=== PATIENT | male | born 1950 | race Caucasian/White ===

== ENCOUNTER → 2019-08-02 08:47 | Outpatient (BNVA) | payer MEDICARE, OTHER, SELFPAY | PROVIDERS: Family Provider Nurse Practitioner Family; PCP Nurse Practitioner Family; Visit Provider Specialist | DX: G40.019 Localization-related (focal) (partial) idiopathic epilepsy and epileptic syndromes with seizures of localized onset, intractable, without status epilepticus (principal); Z98.890 Other specified postprocedural states; H40.20X0 Unspecified primary angle-closure glaucoma, stage unspecified; Z86.69 Personal history of other diseases of the nervous system and sense organs; F17.210 Nicotine dependence, cigarettes, uncomplicated | CPT/HCPCS: 80164; 99213 ==

== ENCOUNTER 2019-08-02 10:24 | Outpatient (CLI) | payer MEDICARE, OTHER, SELFPAY | END 2019-08-02 10:25 | disposition home or self-care (01) | LOC: LAB 10:24 | PROVIDERS: Family Provider Nurse Practitioner Family; PCP Nurse Practitioner Family; Visit Provider Specialist | DX: G40.019 Localization-related (focal) (partial) idiopathic epilepsy and epileptic syndromes with seizures of localized onset, intractable, without status epilepticus (principal) | CPT/HCPCS: 80164 ==

== ENCOUNTER → 2020-01-22 08:39 | Outpatient (BNVA) | payer MEDICARE, OTHER, SELFPAY | PROVIDERS: Family Provider Nurse Practitioner Family; PCP Nurse Practitioner Family; Visit Provider Specialist | DX: G40.802 Other epilepsy, not intractable, without status epilepticus (principal); G25.81 Restless legs syndrome; G40.909 Epilepsy, unspecified, not intractable, without status epilepticus | CPT/HCPCS: 80164; 80175; 99214 ==

== ENCOUNTER 2020-01-22 09:37 | Outpatient (CLI) | payer MEDICARE, OTHER, SELFPAY ==
[2020-01-22 11:05] LABS: Valproic Acid Level 82.2 ug/mL (50-100)
[2020-01-27 00:55] LABS: Lamotrigine (Lamictal) Level 6.2 mcg/mL (4.0-18.0)
== END 2020-01-22 09:38 | disposition home or self-care (01) ==
LOC: LAB 09:44
PROVIDERS: PCP Nurse Practitioner Family; Visit Provider Specialist
DX: G40.909 Epilepsy, unspecified, not intractable, without status epilepticus (principal)
CPT/HCPCS: 80164; 80175

== ENCOUNTER → 2020-07-10 09:39 | Outpatient (BNVA) | payer MEDICARE, OTHER, SELFPAY | PROVIDERS: PCP Nurse Practitioner Family; Visit Provider Specialist | DX: G40.802 Other epilepsy, not intractable, without status epilepticus (principal); G62.9 Polyneuropathy, unspecified; G25.81 Restless legs syndrome; D64.9 Anemia, unspecified; Z98.890 Other specified postprocedural states; F17.210 Nicotine dependence, cigarettes, uncomplicated | CPT/HCPCS: 36415; 80164; 82607; 82728; 83540; 83921; 85025; 99213 ==

== ENCOUNTER 2020-07-10 12:15 | Outpatient (CLI) | payer MEDICARE, OTHER, SELFPAY ==
[2020-07-10 13:17] LABS: Basophils # 0.1 10^3/uL (0.0-0.1); Basophils % 1.5 %; Eosinophils # 1.4 10^3/uL (0.0-0.8); Eosinophils % 27.3 %; Hematocrit 42.2 % (42.0-52.0); Hemoglobin 13.9 g/dL (11.7-16.6); Lymphocytes # 1.8 10^3/uL (0.8-4.8); Lymphocytes % 33.6 %; Mean Corpuscular HGB Conc 32.9 g/dL (30.0-36.0); Mean Corpuscular Hemoglobin 33.3 pg (28.0-34.0); Mean Corpuscular Volume 101.2 fL (80-94); Mean Platelet Volume 10.5 fL (7.4-10.4); Monocytes # 0.3 10^3/uL (0.2-0.9); Monocytes % 6.1 %; Neutrophils # 1.64 10^3/uL (1.8-7.7); Neutrophils % 31.3 %; Nucleated Red Blood Cells % 0 %; Platelet Count 162 10^3/cmm (130-400); Red Blood Count 4.17 10^6/uL (4.1-5.3); Red Cell Distribution Width 13.3 % (12.1-15.1); White Blood Count 5.2 10^3/uL (4.0-10.0)
[2020-07-10 13:30] LABS: Ferritin 571 ng/mL (30-400); Iron 85 ug/dL (59-158)
[2020-07-10 13:34] LABS: Valproic Acid Level 86.3 ug/mL (50-100)
[2020-07-10 13:46] LABS: Vitamin B12 1028 pg/mL (232-1245)
[2020-07-13 17:53] LABS: Methylmalonic Acid 85 nmol/L (87-318)
== END 2020-07-10 12:16 | disposition home or self-care (01) ==
PROVIDERS: PCP Nurse Practitioner Family; Visit Provider Specialist
DX: G62.9 Polyneuropathy, unspecified (principal); D64.9 Anemia, unspecified
CPT/HCPCS: 36415; 80164; 82607; 82728; 83540; 83921; 85025

== ENCOUNTER → 2021-01-08 09:10 | Outpatient (BNVA) | payer MEDICARE, OTHER, SELFPAY | PROVIDERS: PCP Nurse Practitioner Family; Visit Provider Specialist | DX: G40.802 Other epilepsy, not intractable, without status epilepticus (principal); G62.9 Polyneuropathy, unspecified; G25.81 Restless legs syndrome; G30.9 Alzheimer's disease, unspecified; F02.80 Dementia in other diseases classified elsewhere, unspecified severity, without behavioral disturbance, psychotic disturbance, mood disturbance, and anxiety; Z87.891 Personal history of nicotine dependence; Z96.82 Presence of neurostimulator | CPT/HCPCS: 96116; 99214 ==

== ENCOUNTER → 2021-05-01 08:47 | Outpatient (BNVA) | payer MEDICARE, OTHER, SELFPAY | PROVIDERS: PCP Nurse Practitioner Family; Visit Provider Specialist | DX: G30.9 Alzheimer's disease, unspecified (principal); F02.80 Dementia in other diseases classified elsewhere, unspecified severity, without behavioral disturbance, psychotic disturbance, mood disturbance, and anxiety; G25.81 Restless legs syndrome; G40.802 Other epilepsy, not intractable, without status epilepticus; Z86.69 Personal history of other diseases of the nervous system and sense organs; Z96.82 Presence of neurostimulator | CPT/HCPCS: 99213; 99214 ==

== ENCOUNTER 2021-07-03 11:46 | Outpatient (CLI) | payer MEDICARE, OTHER, SELFPAY ==
[2021-07-03 11:43] VITALS: BP 114/67; PULSE 54; RESP 20; TEMP 36.7; O2SAT 97; BMI 21.1
[2021-07-03 12:40] VITALS: BP 134/75; PULSE 56; RESP 22; TEMP 36.4; O2SAT 99
[2021-07-03 13:40] VITALS: BP 133/81; PULSE 58; RESP 20; TEMP 36.6; O2SAT 98
== END 2021-07-03 11:47 | disposition home or self-care (01) ==
LOC: OPS 11:52
PROVIDERS: PCP Nurse Practitioner Family; Visit Provider Nurse Practitioner Family
DX: U07.1 COVID-19 (principal)
CPT/HCPCS: 96365

== ENCOUNTER → 2022-01-12 08:51 | Outpatient (BNVA) | payer MEDICARE, OTHER, SELFPAY | PROVIDERS: PCP Nurse Practitioner Family; Visit Provider Specialist | DX: G40.802 Other epilepsy, not intractable, without status epilepticus (principal); G30.9 Alzheimer's disease, unspecified; F02.80 Dementia in other diseases classified elsewhere, unspecified severity, without behavioral disturbance, psychotic disturbance, mood disturbance, and anxiety; G25.81 Restless legs syndrome; G62.9 Polyneuropathy, unspecified | CPT/HCPCS: 99214 ==

== ENCOUNTER 2022-07-07 20:55 | Inpatient (IN) | payer MEDICARE, OTHER, SELFPAY ==
[2022-07-07 20:59] VITALS: BP 176/104; PULSE 86; RESP 18; TEMP 36.6; O2SAT 91
[2022-07-07 21:30] VITALS: BP 144/89; PULSE 70; RESP 17; O2SAT 93
--- NOTE | 2022-07-07 21:36 | ED_ITS ---
HPI - Seizure General: Chief Complaint: Seizure Stated Complaint: SEIZURE Time Seen by Provider: 07/07/22 20:59 Source: patient and EMS Mode of arrival: EMS Limitations: no limitations History of Present Illness: HPI Narrative: 71-year-old female who has a long history of seizures had seizures for over 25 years his caregiver states that he did miss his Depakote dose and had a seizure tonight patient is currently somnolent he did not hit his head she states that she catch him denies any chest or abdominal pain. Review of Systems General: Reports: ROS unobtainable due to mental status PFSH ED PFSH: Medical History (Updated 07/07/22 @ 23:01 by Paola Martinez MD) Chronic lower back pain Family History Other Diabetes Hypertension Stroke Denies family history of CAD (coronary artery disease) Social History Smoking and tobacco status: former smoker Alcohol intake: never History of recent travel: No Physical Exam Const: COMMON NORMALS: negative for patient oriented x3 HENMT: COMMON NORMALS: normocephalic and atraumatic HEAD & SCALP: normocephalic and atraumatic Eye: COMMON NORMALS: conjunctivae normal CONJUNCTIVA: Yes conjunctivae normal Neck/C-Spine: COMMON NORMALS: full ROM Chest: COMMONS NORMALS: normal inspection of the chest Resp: COMMON NORMALS: normal respiratory effort Cardio: COMMON NORMALS: regular rate RATE: regular rate GI: INSPECTION: Yes normal to inspection : COMMON NORMALS: Yes normal external exam Extremity: COMMON NORMALS: normal to inspection Neuro: COMMON NORMALS: negative for patient oriented x3 Psych: COMMON NORMALS: mental status grossly normal Skin: COMMON NORMALS: no rashes or lesions noted GENERAL SKIN EXAM: no rashes or lesions noted Course Vital Signs: Vital signs: Vital Signs Temperature 97.9 F 07/07/22 20:59 Pulse Rate 66 07/07/22 22:32 Respiratory Rate 14 07/07/22 22:32 Blood Pressure 168/89 07/07/22 22:32 Pulse Oximetry 92 07/07/22 22:32 Oxygen Delivery Me thod 07/07/22 20:59 MDM - Seizure MDM Narrative Medical decision making narrative: Patient presents here with a seizure he is also had a cough he appears to have a slight pneumonia on his right lower lobe and his x-ray he is not hypoxic here he felt improved would like to go home he has been well-appearing here we will start him on doxycycline his Depakote level is normal he is back to his baseline he is here with family member informed if his breathing worsens or has another seizure he is return they understand agree to plan he is to follow-up with PCP in 2 to 4 days to make sure his pneumonia clears up. Lab Data 07/07/22 21:13 Labs: Laboratory Results Sodium 140 mmol/L (136-145) 07/07/22 21:13 Potassium 3.9 mmol/L (3.5-5.1) 07/07/22 21:13 Chloride 104 mmol/L (98-107) 07/07/22 21:13 Carbon Dioxide 26 mmol/L (22-29) 07/07/22 21:13 Anion Gap 13.9 (5-19) 07/07/22 21:13 BUN 15 mg/dL (8-23) 07/07/22 21:13 Creatinine 0.9 mg/dL (0.7-1.2) 07/07/22 21:13 GFR Calculation 83.7 mL/min (90-130) L 07/07/22 21:13 Glucose 131 mg/dL (65-115) H 07/07/22 21:13 Calculated Osmolality 293 mOsm/kg (285-295) 07/07/22 21:13 Calcium 8.6 mg/dL (8.5-10.5) 07/07/22 21:13 Valproic Acid 63.5 ug/mL (50-100) 07/07/22 21:13 Discharge Plan Discharge Patient Disposition: Home Clinical Impression: Seizure, Pneumonia Condition: Stable Prescriptions: New doxycycline hyclate 100 mg tablet 100 mg PO BID 7 Days Qty: 14 0RF No Action doxycycline hyclate 100 mg capsule 100 mg PO BID vitamin b12 as directed garlic Tablet 300 mg PO DAILY divalproex [Depakote] 500 mg tablet,delayed release (DR/EC) 500 mg PO BID Qty: 180 1RF divalproex [Depakote] 500 mg tablet,delayed release (DR/EC) 500 mg PO BID Qty: 180 1RF divalproex 250 mg tablet,delayed release (DR/EC) See Rx Instructions .ROUTE .COMPLEX Qty: 180 1RF Dose Instruction: TAKE ONE TABLET BY MOUTH TWICE DAILY Rx Instructions: TAKE ONE TABLET BY MOUTH TWICE DAILY lamotrigine [Lamictal] 100 mg tablet 50 mg PO BID Qty: 180 3RF memantine 10 mg tablet 10 mg PO BID Qty: 180 3RF memantine 5-10 mg tablets,dose pack See Rx Instructions PO PER PKG DIR Qty: 49 0RF Rx Instructions: PO PER PKG DIR valproic acid 250 mg capsule 250 mg PO BID acetaminophen [Tylenol 8 Hour] 650 mg tablet extended release 650 mg PO Q12H PRN acetaminophen-codeine [Tylenol-Codeine #3] 300-30 mg tablet 1 tab PO Q6H PRN magnesium 250 mg tablet 250 mg PO QDAY tamsulosin 0.4 mg capsule 0.4 mg PO QDAY sod [id number]-luprwxp Tablet PO ONCE levothyroxine 50 mcg capsule 50 mcg PO QDAY cholecalciferol (vitamin D3) [Vitamin D3] 2,000 unit tablet 2,000 unit PO QDAY omega-3 fatty acids 1,000 mg capsule 1,000 mg PO QDAY potassium 99 mg tablet PO ONCE Allergy Relief (cetirizine) 10 mg capsule PO ONCE meclizine 25 mg tablet 25 mg PO QDAY PRN zinc 50 mg tablet 50 mg PO QDAY vitamin E (dl, acetate) 400 unit capsule 400 unit PO QDAY valerian root 100 mg capsule 100 mg PO ONCE glucosamine HCl 1,500 mg tablet 1,500 mg PO ONCE turmeric 400 mg capsule PO ONCE [id number] 600 mg calcium- 800 unit-50 mg tablet 1 tab PO DAILY Rx Instructions: give with meal/snack galantamine 24 mg capsule,ext rel. pellets 24 hr 24 mg PO QAM Qty: 30 2RF Rx Instructions: administer with breakfast galantamine 8 mg capsule,ext rel. pellets 24 hr 8 mg PO QAM Qty: 90 0RF Rx Instructions: administer with breakfast for 90 days, then increased to 16 mg galantamine 16 mg capsule,ext rel. pellets 24 hr 16 mg PO QAM Qty: 90 3RF Rx Instructions: Administer with breakfast. Start on completion of 8 mg for 3 months. ropinirole 1 mg tablet 1 mg PO BID Qty: 180 3RF Rx Instructions: Take two tablets at bedtime azithromycin 250 mg Capsule PO Mucinex Allergy 180 mg Tablet PRN (Reason: Secretions) ondansetron 4 mg Tablet,Disintegrating 4 mg PO Q8H PRN (Reason: Abdominal Discomfort) Discharge Orders: Discharge ED (Routine); Ordered 07/07/22 Ordered By: Paola Martinez Referrals: Melendez,Milagro, AUTOMOTIVE MACHINIST [Primary Care Provider] - 1-3 days Discharge Diet: Advance as tolerated Discharge Activity: Resume usual activity Patient Instructions: Pneumonia (ED), Seizures Coding Level of Care Code ED Rn Research for Chg Fwd Exam Comprehensive
[2022-07-07 21:41] LABS: Anion Gap 13.9 (5-19); Blood Urea Nitrogen 15 mg/dL (8-23); Calcium 8.6 mg/dL (8.5-10.5); Carbon Dioxide 26 mmol/L (22-29); Chloride 104 mmol/L (98-107); Glomerular Filtration Rate 83.7 mL/min (90-130); Glucose 131 mg/dL (65-115); Osmolality Calculated 293 mOsm/kg (285-295); Potassium 3.9 mmol/L (3.5-5.1); Sodium 140 mmol/L (136-145); Valproic Acid Level 63.5 ug/mL (50-100)
[2022-07-07 22:00] VITALS: BP 140/103; PULSE 66; RESP 14; O2SAT 90
[2022-07-07 22:32] VITALS: BP 168/89; PULSE 66; RESP 14; O2SAT 92
--- NOTE | 2022-07-07 22:37 | XRR_ITS ---
PROCEDURE INFORMATION: Exam: XR Chest Exam date and time: 07/07/2022 10:51 PM Age: 71 years old Clinical indication: Prior surgery; Surgery type: Spinal stimulator. Patient HX: Witnessed seizure. History of seizure disorder. Has cough. TECHNIQUE: Imaging protocol: Radiologic exam of the chest. Views: 1 view. COMPARISON: CR XR chest 1V [id number] 01/20/2019 7:56 PM FINDINGS: Tubes, catheters and devices: Spinal stimulator. Lungs: Patchy right mid to lower lung field infiltrate. Pleural spaces: Unremarkable. No pleural effusion. No pneumothorax. Heart/Mediastinum: Unremarkable. No cardiomegaly. Bones/joints: Unremarkable. XR/XR chest 1V portable [id number] IMPRESSION: Patchy right mid to lower lung field infiltrate.
--- NOTE | 2022-07-07 23:15 | PC.NURSE ---
Removed IV to DC pt, pt began seizing, pt turned on side and provider ntfd. Pt no longer seizing after about 30 seconds. New IV started and IV Ativan given
--- NOTE | 2022-07-07 23:28 | CTR_ITS ---
PROCEDURE INFORMATION: Exam: CT Head Without Contrast Exam date and time: 07/08/2022 12:18 AM Age: 71 years old Clinical indication: Condition or disease; Convulsions or seizures; Patient HX: Witnessed seizure. History of seizure disorder. TECHNIQUE: Imaging protocol: Computed tomography of the head without contrast. Radiation optimization: All CT scans at this facility use at least one of these dose optimization techniques: automated exposure control; mA and/or kV adjustment per patient size (includes targeted exams where dose is matched to clinical indication); or iterative reconstruction. COMPARISON: CT head wo con* [id number] 10/15/2018 9:59 PM RADIATION DOSE METRICS: Total DLP (mGy-cm): 1198.98 FINDINGS: Brain: Large amount of diffuse white matter disease likely reflecting chronic microvascular ischemic changes. Cerebral ventricles: No ventriculomegaly. Paranasal sinuses: Visualized sinuses are unremarkable. No fluid levels. Mastoid air cells: Visualized mastoid air cells are well aerated. Bones/joints: Unremarkable. No acute fracture. Soft tissues: Unremarkable. CT/CT head wo con* [id number] IMPRESSION: 1. Negative for intracranial hemorrhage or mass effect. 2. Large amount of diffuse white matter disease likely reflecting chronic microvascular ischemic changes.
[2022-07-07] MEDS: LORazepam 2 mg/mL INJ 1 mL 1 MG IVP (23:31)
[2022-07-07] MEDS: cefTRIAXone 1,000 MG in sodium chloride 0.9% (plus) 50 ML 100 MG IV (23:40)
[2022-07-07 23:44] VITALS: BP 153/90; PULSE 82; RESP 18; O2SAT 93
[2022-07-08] VITALS (7 sets, daily range): BP systolic 130–161; BP diastolic 69–92; PULSE 51–89; RESP 14–17; TEMP 36.4–38.4; O2SAT 90–97
[2022-07-08 00:17] LABS: SARS Covid-2 Antigen negative (Negative)
[2022-07-08 00:33] LABS: Basophils % 0.7 %; Eosinophils # 0.8 10^3/uL (0.0-0.8); Eosinophils % 14.2 %; Hematocrit 42.6 % (42.0-52.0); Hemoglobin 13.9 g/dL (11.7-16.6); Lymphocytes # 1.2 10^3/uL (0.8-4.8); Mean Corpuscular HGB Conc 32.6 g/dL (30.0-36.0); Mean Corpuscular Hemoglobin 32.3 pg (28.0-34.0); Mean Corpuscular Volume 98.8 fl (80-94); Mean Platelet Volume 10.5 fL (7.4-10.4); Monocytes # 0.4 10^3/uL (0.2-0.9); Monocytes % 6.7 %; Neutrophils # 3.32 10^3/uL (1.8-7.7); Neutrophils % 56.7 %; Nucleated Red Blood Cells % 0 %; Platelet Count 283 10^3/cmm (130-400); Red Blood Count 4.31 10^6/uL (4.1-5.3); Red Cell Distribution Width 13.1 % (12.1-15.1); White Blood Count 5.9 10^3/uL (4.0-10.0)
[2022-07-08] MEDS: azithromycin 500 MG in sodium chloride 0.9% 250 ML 250 MG IV (00:40)
[2022-07-08] MEDS: divalproex ER 250 mg Tablet (24H) 500 MG PO (00:41)
[2022-07-08 01:12] LABS: Influenza A by IFA negative (Negative); Influenza B by IFA negative (Negative)
[2022-07-08] MEDS: doxycycline 100 mg Tablet PO (02:00)
--- NOTE | 2022-07-08 02:15 | PC.NURSE ---
ADMIT NOTE Pt received to room from ER at 0155. with pt. She reports he has been sick since Paige Franci with sinus infection. Just was not getting any better. Has had fever to 101.4, c/o SOB and prod cough. Has been getting Albuterol nebs. says today she came home from work and he seemed a little confused and wasn't answering her right. Says sometimes this happens before a seizure. He then had a sz and was brought to the hospital. Had a second seizure in the ER. Lethargic on arrival to room. Did tell me his name but would not open his eyes or follow any commands. says he is sometimes postictal for up to 24 hours. Side rails are padded and suction at bedside. will be staying with pt. RN at bedside doing admission assessment. Dr Christianson also in talking with
[2022-07-08 04:02] LABS: Add Urine Microscopic? NO; Charge for UA Resulting for Rev
[2022-07-08 04:14] LABS: Urine Appearance Clear (CLEAR); Urine Color Yellow (Yellow)
[2022-07-08 04:15] LABS: Bilirubin Urine Neg (Negative); Blood Urine Neg (Negative); Glucose Urine UA Norm (Normal); Ketones Urine Negative (Negative); Nitrate Urine Negative (Negative); Protein Urine Neg (Negative); Specific Gravity, Urine 1.015 (1.005-1.030); pH Urine 8 (5-7)
[2022-07-08 04:16] LABS: Leukocyte Esterase Urine Negative (Negative); Sulfosalicylic Acid Urine Negative (Negative); Urobilinogen Urine Norm (Negative)
--- NOTE | 2022-07-08 04:45 | PM.HP ---
Providers/Chief Complaint Admitting Physician: Chiquita Christianson MD Primary Care Provider: Milagro Melendez APN Chief Complaint: SEIZURE History of Present Illness Ketan Sandra is a 71 year old male with past medical history of stroke, hypertension, diabetes, epilepsy, COPD, restless legs presented to the hospital today with complaint of seizure. He says his last seizure was in January last year. For seizure was 30 to 45 seconds long and then he had a second seizure which was 1 minute long in the ER here. She states that patient was lethargic today. Patient did miss his Depakote dose. Patient's states that he has been having seizures since he was 42 years old. He only gets breakthrough seizures when he gets sick otherwise has been stable on medications and follows with Dr. Vallecillo. Recently he has had a fever, cough bringing up green/yellow sputum. He is a former smoker and has a history of COPD however not on any inhalers that are scheduled. He usually has 1-2 seizures a year. He has also been incontinent of urine this past month and has to wear depends. He states normally his postictal phase lasts anywhere from 12 to 24 hours. That is normal for him. Patient unable to provide any history at this time as he is is postictal. In the ER chest x-ray did show a right lower lobe pneumonia and initially patient was being discharged home however he had another seizure. Depakote level was normal. Patient will be admitted for IV antibiotics at this time. Medications/Allergies Home Medications Medication Instructions Recorded Confirmed Last Taken Type acetaminophen 300 mg-codeine 30 mg 1 tab PO Q6H PRN 08/02/19 01/12/22 Unknown History tablet (Tylenol-Codeine #3) acetaminophen 650 mg 650 mg PO Q12H PRN 08/02/19 01/12/22 Unknown History tablet,extended release (Tylenol 8 Hour) cetirizine 10 mg capsule (Allergy PO ONCE 08/02/19 01/12/22 Unknown History Relief (cetirizine)) cholecalciferol (vitamin D3) 50 2,000 unit PO QDAY 08/02/19 01/12/22 Unknown History mcg (2,000 unit) tablet (Vitamin D3) glucosamine HCl 1,500 mg tablet 1,500 mg PO ONCE 08/02/19 01/12/22 Unknown History levothyroxine 50 mcg capsule 50 mcg PO QDAY 08/02/19 01/12/22 Unknown History magnesium 250 mg tablet 250 mg PO QDAY 08/02/19 01/12/22 Unknown History meclizine 25 mg tablet 25 mg PO QDAY PRN 08/02/19 01/12/22 Unknown History omega-3 fatty acids 1,000 mg 1,000 mg PO QDAY 08/02/19 01/12/22 Unknown History capsule potassium 99 mg tablet mg PO ONCE 08/02/19 01/12/22 Unknown History sodium uzksaucg-tkgosfoso-cywwrpv tab PO ONCE 08/02/19 01/12/22 Unknown History tablet tamsulosin 0.4 mg capsule 0.4 mg PO QDAY 08/02/19 01/12/22 Unknown History turmeric 400 mg capsule mg PO ONCE 08/02/19 01/12/22 Unknown History valerian root 100 mg capsule 100 mg PO ONCE 08/02/19 01/12/22 Unknown History valproic acid 250 mg capsule 250 mg PO BID 08/02/19 01/12/22 Unknown History vitamin E (dl, acetate) 180 mg 400 unit PO QDAY 08/02/19 01/12/22 Unknown History (400 unit) capsule zinc 50 mg tablet 50 mg PO QDAY 08/02/19 01/12/22 Unknown History calcium 600 mg-D3 800 unit-mag11 1 tab PO DAILY 01/22/20 01/12/22 Unknown History 50 ec-dpil-uqdrzu-yimi-s.borat tablet doxycycline hyclate 100 mg capsule 100 mg PO BID 07/10/20 01/12/22 Unknown History galantamine 24 mg 24 hr 24 mg PO QAM #30 caps 01/08/21 01/12/22 Unknown Rx capsule,extended release galantamine 16 mg 24 hr 16 mg PO QAM #90 caps 05/01/21 01/12/22 Unknown Rx capsule,extended release galantamine 8 mg 24 hr 8 mg PO QAM #90 caps 05/01/21 01/12/22 Unknown Rx capsule,extended release azithromycin 250 mg capsule mg PO 07/03/21 01/12/22 07/03/21 08:00 History fexofenadine 180 mg tablet mg PRN Secretions 07/03/21 01/12/22 07/03/21 08:00 History ondansetron 4 mg disintegrating 4 mg PO Q8H PRN Abdominal 07/03/21 01/12/22 07/03/21 08:00 History tablet Discomfort divalproex 250 mg tablet,delayed See Rx Instructions .Route 01/12/22 01/12/22 Unknown Rx release .COMPLEX #180 tabs divalproex 500 mg tablet,delayed 500 mg PO BID #180 tabs 01/12/22 01/12/22 Unknown Rx release (Depakote) divalproex 500 mg tablet,delayed 500 mg PO BID #180 tabs 01/12/22 01/12/22 Unknown Rx release (Depakote) garlic 300 mg PO DAILY 01/12/22 01/12/22 Unknown History lamotrigine 100 mg tablet 50 mg PO BID #180 tabs 01/12/22 01/12/22 Unknown Rx (Lamictal) memantine 10 mg tablet 10 mg PO BID #180 tabs 01/12/22 01/12/22 Unknown Rx memantine 5 mg-10 mg tablets in a See Rx Instructions PO PER PKG DIR 01/12/22 01/12/22 Unknown Rx dose pack #49 ea vitamin b12 as directed 01/12/22 Unknown History ropinirole 1 mg tablet 1 mg PO BID #180 tabs 02/18/22 Unknown Rx doxycycline hyclate 100 mg tablet 100 mg PO BID 7 days #14 tabs 07/07/22 Unknown Rx Allergies Allergy/AdvReac Type Severity Reaction Status Date / Time aloe vera AdvReac itching/aggie Verified 01/12/22 08:54 h metronidazole [From Flagyl] AdvReac seizure Verified 01/12/22 08:54 phenytoin [From Dilantin] AdvReac rash Verified 01/12/22 08:54 PFSH Acute PFSH: Medical History (Updated 07/07/22 @ 23:01 by Paola Martinez MD) Chronic lower back pain Family History Other Diabetes Hypertension Stroke Denies family history of CAD (coronary artery disease) Social History Smoking and tobacco status: former smoker Alcohol intake: never History of recent travel: No Vitals/I&O/Wt Last Vital Signs Temp 98.8 F 07/08/22 00:00 Pulse 87 07/08/22 00:00 Resp 16 07/08/22 00:00 BP 149/92 07/08/22 00:00 Pulse Ox 93 07/08/22 00:00 O2 Del Method 07/08/22 02:35 07/07/22 07/07/22 07/08/22 14:59 22:59 06:59 Intake Total 300 / 300 Balance 300 / 300 Physical Exam Narrative: General: Able to state his name but otherwise does not provide any history. Able to move all 4 extremities. Drowsy and postictal at this time. present at bedside. Patient laying in position. HEENT: Normocephalic, atraumatic, EOMI, breathing after being on room air. Cardio: Regular rate rhythm, normal S1-S2, Respiratory: Clear to auscultation bilaterally with mild rhonchi at right base. GI: Abdomen soft, nontender, nondistended, bowel sounds + Extremities: No bilateral lower extremity edema. Data 07/07/22 21:13 07/07/22 21:13 Micro: Microbiology 07/07/22 23:58 Blood Culture - Preliminary Blood SPECIMEN COLLECTED 07/07/22 23:30 Blood Culture - Preliminary Blood SPECIMEN COLLECTED A&P Assessment and plan (1) Seizure: (2) Pneumonia: (3) Alzheimer disease: (4) Restless legs syndrome: (5) Peripheral neuropathy: (6) Frontal lobe epilepsy: Plan #RLL Pneumonia #Seizures #COPD #HTN #Early dementia history -Continue on ceftriaxone azithromycin ? Check procalcitonin, blood cultures ? Check urine culture ? Vitamin B12 level ? CT head ? Continue IV fluids 75 cc/h normal saline ? Check sputum culture gram stain if able to provide ? DuoNeb every 4 hours as needed ? Continue all home seizure medications but converted to IV as patient is postictal at this time ? Follow-up with Dr. Vallecillo as an outpatient ? Check COVID, influenza swab. ? updated at bedside ? RN to confirm home medications. did not bring list. DNR/DNI as per . DVT prophylaxis: Heparin SQ twice daily Attestations Medical Necessity Statement*: Possibility of cross greater than 2 midnight stay for management of breakthrough seizures and current level of pneumonia requiring IV antibiotics. Coding Level of Care Code Acute Blow Down Operator for [facility] Fwd Diagnoses Seizure R56.9 Pneumonia J18.9 Alzheimer disease G30.9; F02.80 Restless legs syndrome G25.81 Peripheral neuropathy G62.9 Frontal lobe epilepsy G40.802
[2022-07-08] MEDS: sodium chloride 0.9% 1,000 ML 75 ML IV ×2 (05:07→18:21)
[2022-07-08] MEDS: heparin 5,000 unit/mL INJ 1 mL 5000 UNIT SUBCUT (05:10)
[2022-07-08] MEDS: pantoprazole 40 mg SDV IVP (05:32)
[2022-07-08 05:46] LABS: Lactic Sepsis W/Reflex 1.1 mmol/L (0.5-2.2)
[2022-07-08 05:53] LABS: Thyroid Stimulating Hormone 3.02 uIU/mL (0.27-4.20)
[2022-07-08 05:54] LABS: Procalcitonin 0.05 ng/mL (0-0.5)
[2022-07-08] MEDS: valproic acid inj 500 MG in sodium chloride 0.9% 50 ML 55 MG IV (10:41)
[2022-07-08] MEDS: piperacillin-tazobactam 3.375 GM in sodium chloride 0.9% (plus) 50 ML IV ×2 (11:56→18:21)
--- NOTE | 2022-07-08 15:09 | P.PN_ITS ---
Subjective Subjective: Patient was seen and examined this morning, he was able to answer few simple questions but still sleepy. No reported seizure so far. Medications: Medication Review Details: Generic Name Dose Route Start Last Admin Trade Name Luz PRN Reason Stop Dose Admin Heparin Sodium (Po rcine) 5,000 unit 07/08/22 04:45 07/08/22 05:10 Heparin 5,000 Un it/Ml Inj 1 Ml SUBCUT 5,000 unit Q12H DONNELL Administration Sodium Chloride 1,000 mls @ 75 ml s/hr 07/08/22 04:45 07/08/22 05:07 Sodium Chloride 0.9% IV 75 mls/hr .[id number] DONNELL Administration Piperacillin Sod/T azobactam 50 mls @ 12.5 mls /hr 07/08/22 08:30 07/08/22 11:56 Sod 3.375 gm/ So dium Chloride IV 12.5 mls/hr Q8H DONNELL Administration Protocol Pantoprazole Sodiu m 40 mg 07/08/22 04:45 07/08/22 05:32 Pantoprazole 40 Mg Sdv IVP 40 mg Q24H DONNELL Administration Vitals/I&O/Wt Last Vital Signs Temp 98.2 F 07/08/22 12:00 Pulse 59 L 07/08/22 12:00 Resp 16 07/08/22 12:00 BP 133/69 07/08/22 12:00 Pulse Ox 92 07/08/22 12:00 O2 Del Method 07/08/22 12:00 07/08/22 07/08/22 07/08/22 06:59 14:59 22:59 Intake Total 300 / 300 55 / 55 Balance 300 / 300 55 / 55 Physical Exam Narrative: Patient was seen and examined this morning he was drowsy, though he wakes up and answer simple questions HENMT: COMMON NORMALS: normocephalic and atraumatic HEAD & SCALP: normocephalic and atraumatic Resp: COMMON NORMALS: clear to auscultation bilaterally EFFORT & INSPECTION: Yes symmetric chest movement AUSCULTATION: clear to auscultation bilaterally Cardio: COMMON NORMALS: regular rate, regular rhythm, S1 normal heart sound present, S2 normal heart sound present, No gallops present (Cardio), No murmurs present (Cardio), No rub (Cardio) and Peripheral pulses 2+ throughout RATE: regular rate RHYTHM: regular rhythm HEART SOUNDS: S1 normal heart sound present and S2 normal heart sound present PERIPHERAL PULSES: Peripheral pulses 2+ throughout GI: COMMON NORMALS: Normal to inspection, nondistended, normoactive bowel sounds present, Soft to palpation, non-tender, No hepatosplenomegaly present and no masses AUSCULTATION: Yes normoactive bowel sounds PALPATION: Yes Soft to palpation and Yes No hepatosplenomegaly present RECTAL EXAM: Yes deferred Extremity: COMMON NORMALS: no clubbing, cyanosis or edema and no pedal edema Data 07/07/22 21:13 07/07/22 21:13 Micro: Microbiology 07/07/22 23:58 Blood Culture - Preliminary Blood SPECIMEN COLLECTED 07/07/22 23:30 Blood Culture - Preliminary Blood SPECIMEN COLLECTED A&P Assessment and plan (1) Seizure: (2) Pneumonia: (3) Alzheimer disease: (4) Restless legs syndrome: (5) Peripheral neuropathy: (6) Frontal lobe epilepsy: Plan 71 year old male with PMH of CVA, seizure disorder, hypertension diabetes COPD, was brought in to the hospital after experiencing seizure at home, he also experienced seizure while here in the ER. It is interesting to see that patient is able to tell that his post ictal phase last 12 to 24 hours. Currently is being managed for: Assessment Breakthrough seizure Fever Right lower lobe pneumonia: Possible aspiration pneumonia/pneumonitis History of hypothyroidism History of hypertension History of COPD History of early dementia Plan: CT head without contrast: No acute intracranial pathology X-ray chest: Right lower lobe infiltrates Blood culture Sputum gram stain and culture Urinalysis: Clean urine culture Lactic acid 1.1 Influenza negative Procalcitonin 0.05 Currently empirically on Zosyn Has received IV valproic acid 500 one-time dose today Will likely resume p.o. home antiseizure medications from tomorrow. Continue levothyroxine CODE STATUS: Full code DVT prophylaxis on Lovenox Attestations Medical Necessity Statement*: Patient is to be in hospital for breakthrough seizure, fever. Coding Level of Care Code Acute Assistive Technology Trainer for [facility] Fwd Diagnoses Seizure R56.9 Pneumonia J18.9 Alzheimer disease G30.9; F02.80 Restless legs syndrome G25.81 Peripheral neuropathy G62.9 Frontal lobe epilepsy G40.802
[2022-07-09] VITALS (8 sets, daily range): BP systolic 118–169; BP diastolic 75–88; PULSE 52–73; RESP 16–18; TEMP 36.4–36.7; O2SAT 90–94
[2022-07-09 03:17] LABS: Basophils % 0.7 %; Eosinophils # 0.6 10^3/uL (0.0-0.8); Eosinophils % 9.8 %; Hematocrit 39.1 % (42.0-52.0); Hemoglobin 13.3 g/dL (11.7-16.6); Lymphocytes # 1.7 10^3/uL (0.8-4.8); Lymphocytes % 30.6 %; Mean Corpuscular Hemoglobin 32.5 pg (28.0-34.0); Mean Corpuscular Volume 95.6 fl (80-94); Mean Platelet Volume 9.9 fL (7.4-10.4); Monocytes # 0.6 10^3/uL (0.2-0.9); Monocytes % 10.3 %; Neutrophils % 47.9 %; Nucleated Red Blood Cells % 0 %; Platelet Count 290 10^3/cmm (130-400); Red Blood Count 4.09 10^6/uL (4.1-5.3); Red Cell Distribution Width 12.9 % (12.1-15.1); White Blood Count 5.6 10^3/uL (4.0-10.0)
[2022-07-09] MEDS: piperacillin-tazobactam 3.375 GM in sodium chloride 0.9% (plus) 50 ML IV ×3 (03:49→17:27)
[2022-07-09 03:50] LABS: Alanine Aminotransferase 10 U/L (0-41); Albumin Level 3.3 g/dL (3.5-5.2); Alkaline Phosphatase 70 U/L (40-130); Anion Gap 13.5 (5-19); Aspartate Amino Transferase 15 U/L (0-40); Blood Urea Nitrogen 11 mg/dL (8-23); Calcium 8.2 mg/dL (8.5-10.5); Carbon Dioxide 24 mmol/L (22-29); Chloride 108 mmol/L (98-107); Globulin 2.7 g/dL (1.3-4.6); Glomerular Filtration Rate 95.8 mL/min (90-130); Glucose 80 mg/dL (65-115); Magnesium 1.8 mg/dL (1.7-2.3); Osmolality Calculated 292 mOsm/kg (285-295); Potassium 3.5 mmol/L (3.5-5.1); Sodium 142 mmol/L (136-145); Total Bilirubin 0.4 mg/dL (0.15-1.2)
[2022-07-09] MEDS: pantoprazole 40 mg SDV IVP (04:15)
[2022-07-09] MEDS: enoxaparin 40 mg/0.4 mL Syringe SUBCUT (06:24)
[2022-07-09] MEDS: divalproex ER 500 mg Tablet (24H) PO ×2 (09:00→20:49)
[2022-07-09] MEDS: lamoTRIgine 25 mg Tablet 50 MG PO ×2 (09:00→17:28)
[2022-07-09] MEDS: levothyroxine 50 mcg Tablet PO (09:00)
--- NOTE | 2022-07-09 10:47 | PC.CHAP ---
Pastoral Care Encounter/Spiritual Assessment Type of Contact [] Declined child and family therapist visit [] Patient/Family/Request visit [] Outpatient visit [] Follow-up visit [] Physician referral [] Code/Alert [x] Routine visit [] Staff referral [] Actively dying [] Patient sleeping [] Family support [] [] Out of room [] Palliative care [] [x] Receiving care in room [] Pre-surgical visit [] Trauma [] Long length of stay [] ICU visit [] Other: Relational/Emotional Strength [x] Patient feels connected with others/family/visitors/staff [] Distress [] Loneliness/isolation [] Abandonment Spirituality of Patient [x] Person of Camelia [] Attends Druze of their Camelia [x] Believes in Prayer [] Reads Bible or Jain materials [] There are Spiritual issues to be addressed Lineworker Interventions [x] Prayer [x] Active listening [x] Non-anxious presence [x] Spiritual/emotional support [] Crisis/trauma care [x] Spiritual counseling [] Bereavement support [] Provided bereavement packet [] Provided Bible/devotional materials [] Provided toy/stuffed animal, coloring book to patient or family member [] Provided Communion [] Anointing/[place] [] Salvation [x] Completed spiritual assessment [] Other: Impact on Illness or Injury [] Angry [] Fearful [] Anxious [] Often cries [] Exhaustion [] Unable to work [] Unable to attend denominational [] Unable to walk/stand [] Unable to read [] Unable to drive [] Unable to eat/drink [] Unable to sleep [] Unable to be with family [] Patient intubated [] Other: Summary dealing with congaative lung negative feelings not sure about health at this time + 1 family Time spent with patient 10 mins
--- NOTE | 2022-07-09 15:28 | P.PN_ITS ---
Subjective Subjective: Patient was seen and examined this morning, much more alert awake oriented today, no reported seizure episode, he is hungry wants to eat.Has been afebrile overnight. Medications: Medication Review Details: Generic Name Dose Route Start Last Admin Trade Name Luz PRN Reason Stop Dose Admin Divalproex Sodium 500 mg 07/09/22 09:00 07/09/22 09:00 Divalproex Er 50 0 Mg Tablet (24h) PO 500 mg BID@0900,2100 DONNELL Administration Enoxaparin Sodium 40 mg 07/09/22 07:00 07/09/22 06:24 Enoxaparin 40 Mg /0.4 Ml Syringe SUBCUT 40 mg Q24H DONNELL Administration Piperacillin Sod/T azobactam 50 mls @ 12.5 mls /hr 07/08/22 08:30 07/09/22 11:17 Sod 3.375 gm/ So dium Chloride IV 12.5 mls/hr Q8H DONNELL Administration Protocol Lamotrigine 50 mg 07/09/22 09:00 07/09/22 09:00 Lamotrigine 25 M g Tablet PO 50 mg BID DONNELL Administration Levothyroxine Sodi um 50 mcg 07/09/22 09:00 07/09/22 09:00 Levothyroxine 50 Mcg Tablet PO 50 mcg DAILY DONNELL Administration Pantoprazole Sodiu m 40 mg 07/08/22 04:45 07/09/22 04:15 Pantoprazole 40 Mg Sdv IVP 40 mg Q24H DONNELL Administration Vitals/I&O/Wt Last Vital Signs Temp 97.7 F 07/09/22 12:00 Pulse 73 07/09/22 12:00 Resp 17 07/09/22 12:00 BP 131/88 07/09/22 12:00 Pulse Ox 93 07/09/22 12:00 O2 Del Method 07/09/22 12:00 07/09/22 07/09/22 07/09/22 06:59 14:59 22:59 Intake Total 110 / 1207.5 50 / 50 Output Total 650 / 1275 250 / 250 Balance -540 / -67.5 -200 / -200 Physical Exam HENMT: COMMON NORMALS: normocephalic and atraumatic HEAD & SCALP: normoce phalic and atraumatic Resp: COMMON NORMALS: clear to auscultation bilaterally EFFORT & INSPECTION: Yes symmetric chest movement AUSCULTATION: clear to auscultation bilaterally Cardio: COMMON NORMALS: regular rate, regular rhythm, S1 normal heart sound present, S2 normal heart sound present, No gallops present (Cardio), No murmurs present (Cardio), No rub (Cardio) and Peripheral pulses 2+ throughout RATE: regular rate RHYTHM: regular rhythm HEART SOUNDS: S1 normal heart sound present and S2 normal heart sound present PERIPHERAL PULSES: Peripheral pulses 2+ throughout GI: COMMON NORMALS: Normal to inspection, nondistended, normoactive bowel sounds present, Soft to palpation, non-tender, No hepatosplenomegaly present and no masses AUSCULTATION: Yes normoactive bowel sounds PALPATION: Yes Soft to palpation and Yes No hepatosplenomegaly present RECTAL EXAM: Yes deferred Extremity: COMMON NORMALS: no clubbing, cyanosis or edema and no pedal edema Data 07/09/22 02:51 07/09/22 02:51 Micro: Microbiology 07/07/22 23:58 Blood Culture - Preliminary Blood NEGATIVE TO DATE 07/07/22 23:30 Blood Culture - Preliminary Blood NEGATIVE TO DATE A&P Assessment and plan (1) Seizure: (2) Pneumonia: (3) Alzheimer disease: (4) Restless legs syndrome: (5) Peripheral neuropathy: (6) Frontal lobe epilepsy: Plan 71 year old male with PMH of CVA, seizure disorder, hypertension diabetes COPD, was brought in to the hospital after experiencing seizure at home, he also experienced seizure while here in the ER. Currently he is being managed for: Assessment Breakthrough seizure Fever Right lower lobe pneumonia: Possible aspiration pneumonia/pneumonitis History of hypothyroidism History of hypertension History of COPD History of early dementia Plan: CT head without contrast: No acute intracranial pathology X-ray chest: Right lower lobe infiltrates Blood culture:NTD Sputum gram stain and culture: Urinalysis: Clean urine culture Lactic acid 1.1 Influenza negative Procalcitonin 0.05 Currently empirically on Zosyn Has received IV valproic acid 500 one-time dose today On p.o. home antiseizure medications Continue levothyroxine Plan for today: Resume p.o. medications, start him on diet. If patient continues to remain afebrile and cultures remain negative, he will be ready for discharge in next 24 to 48 hours. CODE STATUS: Full code DVT prophylaxis on Lovenox Attestations Medical Necessity Statement*: Patient is still in hospital for management of seizure. Time Spent in Patient Care: Greater than 35 minutes (>than 50% of time spent in counselling and/or direct pt care on unit) . Coding Level of Care Code Acute [employer] Work[employer] for g Fwd Diagnoses Seizure R56.9 Pneumonia J18.9 Alzheimer disease G30.9; F02.80 Restless legs syndrome G25.81 Peripheral neuropathy G62.9 Frontal lobe epilepsy G40.802
[2022-07-09] MEDS: ipratropium-albuterol 3 mL Neb INHALATION (21:03)
[2022-07-10 00:11] VITALS: BP 116/68; PULSE 76; RESP 17; TEMP 36.8; O2SAT 92
[2022-07-10] MEDS: piperacillin-tazobactam 3.375 GM in sodium chloride 0.9% (plus) 50 ML IV (03:14)
[2022-07-10] MEDS: pantoprazole 40 mg SDV IVP (04:27)
[2022-07-10 05:46] VITALS: BP 126/80; PULSE 57; RESP 16; O2SAT 92
[2022-07-10 05:58] LABS: Basophils # 0.1 10^3/uL (0.0-0.1); Basophils % 0.9 %; Eosinophils # 0.7 10^3/uL (0.0-0.8); Eosinophils % 10.2 %; Hematocrit 41.4 % (42.0-52.0); Hemoglobin 14.3 g/dL (11.7-16.6); Lymphocytes # 2.2 10^3/uL (0.8-4.8); Lymphocytes % 32.3 %; Mean Corpuscular HGB Conc 34.5 g/dL (30.0-36.0); Mean Corpuscular Hemoglobin 33.3 pg (28.0-34.0); Mean Corpuscular Volume 96.3 fl (80-94); Monocytes # 0.7 10^3/uL (0.2-0.9); Monocytes % 10.2 %; Neutrophils # 3.15 10^3/uL (1.8-7.7); Neutrophils % 45.8 %; Nucleated Red Blood Cells % 0 %; Platelet Count 349 10^3/cmm (130-400); Red Cell Distribution Width 13.2 % (12.1-15.1); White Blood Count 6.9 10^3/uL (4.0-10.0)
[2022-07-10] MEDS: enoxaparin 40 mg/0.4 mL Syringe SUBCUT (06:02)
[2022-07-10 06:17] LABS: Anion Gap 11.6 (5-19); Blood Urea Nitrogen 18 mg/dL (8-23); Calcium 8.2 mg/dL (8.5-10.5); Carbon Dioxide 26 mmol/L (22-29); Chloride 107 mmol/L (98-107); Glomerular Filtration Rate 83.7 mL/min (90-130); Glucose 80 mg/dL (65-115); Osmolality Calculated 293 mOsm/kg (285-295); Potassium 3.6 mmol/L (3.5-5.1); Sodium 141 mmol/L (136-145)
[2022-07-10 07:54] VITALS: BP 132/80; PULSE 52; RESP 16; TEMP 36.3; O2SAT 92
[2022-07-10 08:27] VITALS: PULSE 65; RESP 16; O2SAT 93
[2022-07-10] MEDS: levothyroxine 50 mcg Tablet PO (08:31)
[2022-07-10] MEDS: lamoTRIgine 25 mg Tablet 50 MG PO (08:31)
[2022-07-10] MEDS: divalproex ER 500 mg Tablet (24H) PO (08:31)
--- NOTE | 2022-07-10 10:10 | ECG_ITS ---
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 Measurements Intervals [place] Rate: 64 P: 35 MA: 184 QRS: -15 QRSD: 112 T: 40 QT: 424 QTc: 439 Interpretive Statements SINUS RHYTHM MODERATE INTRAVENTRICULAR CONDUCTION DELAY [110+ ms QRS DURATION] Compared to ECG 01/20/2019 19:33:27 Intraventricular conduction delay now present Myocardial infarct finding no longer present Electronically Signed On 07-10-2022 17:01:58 [employer] by Chrissy Elena M.D. [id number]
[2022-07-10 12:00] VITALS: BP 110/65; PULSE 57; RESP 16; TEMP 36.4; O2SAT 91
[2022-07-10 14:45] VITALS: BP 110/65; PULSE 57; RESP 16; TEMP 36.4; O2SAT 91
--- NOTE | 2022-07-10 14:46 | PC.NURSE ---
patient and verbalized understanding of discharge instructions, home medications, and follow up appointments.
--- NOTE | 2022-07-10 17:52 | PM.DCS ---
Discharge Providers Date of Admission: 07/08/22 16:00 Date of Discharge: July 10, 2022 Attending Provider at Admission: Chiquita Christianson MD Attending Provider at Discharge: Roger Troy MD Primary Care Provider: Milagro Melendez APN Diagnoses at Discharge Discharge Diagnosis (1) Seizure: Status: Inactive (2) Pneumonia: Status: Inactive (3) Alzheimer disease: Status: Inactive (4) Restless legs syndrome: Status: Inactive (5) Peripheral neuropathy: Status: Inactive (6) Frontal lobe epilepsy: Status: Inactive Reason for Visit Reason for Visit: SEIZURE Hospital Course Hospital Course 71 year old male with PMH of CVA, seizure disorder, hypertension diabetes COPD, was brought in to the hospital after experiencing seizure at home, he was admitted for the management of breakthrough seizure, he was initially kept on I.V seizure medications and was later switched to oral home medications, he also had fever during the hospital stay, CT head without contrast: No acute intracranial pathology, X-ray chest: Right lower lobe infiltrates, Blood culture:Negative, Sputum gram stain and culture:WNL, Urinalysis: Clean,urine culture:Negative,Lactic acid 1.1,Influenza negative,Procalcitonin:Normal , empirically was on Zosyn for possible Aspiration PNA,he was discharged on PO Augmentin.At the time of discharged he was satble,AO*4,afebrile,saturating well on R/A.He was discharged home in stable condition. Physical Exam Narrative: Patient was seen and examined this morning he was drowsy, though he wakes up and answer simple questions HENMT: COMMON NORMALS: normocephalic and atraumatic HEAD & SCALP: normocephalic and atraumatic Resp: COMMON NORMALS: clear to auscultation bilaterally EFFORT & INSPECTION: Yes symmetric chest movement AUSCULTATION: clear to auscultation bilaterally Cardio: COMMON NORMALS: regular rate, regular rhythm, S1 normal heart sound present, S2 normal heart sound present, No gallops present (Cardio), No murmurs present (Cardio), No rub (Cardio) and Peripheral pulses 2+ throughout RATE: regular rate RHYTHM: regular rhythm HEART SOUNDS: S1 normal heart sound present and S2 normal heart sound present PERIPHERAL PULSES: Peripheral pulses 2+ throughout GI: COMMON NORMALS: Normal to inspection, nondistended, normoactive bowel sounds present, Soft to palpation, non-tender, No hepatosplenomegaly present and no masses AUSCULTATION: Yes normoactive bowel sounds PALPATION: Yes Soft to palpation and Yes No hepatosplenomegaly present RECTAL EXAM: Yes deferred Extremity: COMMON NORMALS: no clubbing, cyanosis or edema and no pedal edema Discharge Data Studies Completed and Pending Completed Studies During Hospitalization Category Date Time Status CT head wo con* [id number] Stat Cat Scan 07/07/22 23:28 Completed CXRP [XR chest 1V portable [id number]] Stat Exams 07/07/22 22:37 Completed Pending at discharge Category Date Time Status Blood Culture Stat Lab 07/07/22 23:58 Results Sputum Culture and Gram Stain Stat Lab 07/10/22 00:45 Results Urine Culture Routine Lab 07/09/22 23:00 Received Radiology Impressions Chest X-Ray 07/07/22 22:37 IMPRESSION: Patchy right mid to lower lung field infiltrate. Head CT 07/07/22 23:28 IMPRESSION: 1. Negative for intracranial hemorrhage or mass effect. 2. Large amount of diffuse white matter disease likely reflecting chronic microvascular ischemic changes. Laboratory Results WBC 6.9 10^3/uL (4.0-10.0) 07/10/22 05:31 RBC 4.30 10^6/uL (4.1-5.3) 07/10/22 05:31 Hgb 14.3 g/dL (11.7-16.6) 07/10/22 05:31 Hct 41.4 % (42.0-52.0) L 07/10/22 05:31 MCV 96.3 fl (80-94) H 07/10/22 05:31 MCH 33.3 pg (28.0-34.0) 07/10/22 05:31 MCHC 34.5 g/dL (30.0-36.0) 07/10/22 05:31 RDW 13.2 % (12.1-15.1) 07/10/22 05:31 Plt Count 349 10^3/cmm (130-400) 07/10/22 05:31 MPV 10.0 fL (7.4-10.4) 07/10/22 05:31 Neut % (Auto) 45.8 % 07/10/22 05:31 Lymph % (Auto) 32.3 % 07/10/22 05:31 [place] % (Auto) 10.2 % 07/10/22 05:31 Eos % (Auto) 10.2 % 07/10/22 05:31 Baso % (Auto) 0.9 % 07/10/22 05:31 Neut # (Auto) 3.15 10^3/uL (1.8-7.7) 07/10/22 05:31 Lymph # (Auto) 2.2 10^3/uL (0.8-4.8) 07/10/22 05:31 [place] # (Auto) 0.7 10^3/uL (0.2-0.9) 07/10/22 05:31 Eos # (Auto) 0.7 10^3/uL (0.0-0.8) 07/10/22 05:31 Baso # (Auto) 0.1 10^3/uL (0.0-0.1) 07/10/22 05:31 Nucleated RBC % (auto) 0 % 07/10/22 05:31 Nucleated RBCs # 0.0 /100WBC 07/10/22 05:31 Sodium 141 mmol/L (136-145) 07/10/22 05:31 Potassium 3.6 mmol/L (3.5-5.1) 07/10/22 05:31 Chloride 107 mmol/L (98-107) 07/10/22 05:31 Carbon Dioxide 26 mmol/L (22-29) 07/10/22 05:31 Anion Gap 11.6 (5-19) 07/10/22 05:31 BUN 18 mg/dL (8-23) 07/10/22 05:31 Creatinine 0.9 mg/dL (0.7-1.2) 07/10/22 05:31 GFR Calculation 83.7 mL/min (90-130) L 07/10/22 05:31 Glucose 80 mg/dL (65-115) 07/10/22 05:31 Calculated Osmolality 293 mOsm/kg (285-295) 07/10/22 05:31 Lactic Acid 1.1 mmol/L (0.5-2.2) 07/08/22 05:16 Calcium 8.2 mg/dL (8.5-10.5) L 07/10/22 05:31 Magnesium 1.8 mg/dL (1.7-2.3) 07/09/22 02:51 Total Bilirubin 0.4 mg/dL (0.15-1.2) 07/09/22 02:51 AST 15 U/L (0-40) 07/09/22 02:51 ALT 10 U/L (0-41) 07/09/22 02:51 Alkaline Phosphatase 70 U/L (40-130) 07/09/22 02:51 Total Protein 6.0 g/dL (6.6-8.7) L 07/09/22 02:51 Albumin 3.3 g/dL (3.5-5.2) L 07/09/22 02:51 Globulin 2.7 g/dL (1.3-4.6) 07/09/22 02:51 Procalcitonin 0.05 ng/mL (0-0.5) 07/08/22 05:16 TSH 3.02 uIU/mL (0.27-4.20) 07/08/22 05:16 Urine Color Yellow (Yellow) 07/08/22 03:08 Urine Appearance Clear (CLEAR) 07/08/22 03:08 Urine pH 8 (5-7) H 07/08/22 03:08 Ur Specific [place] 1.015 (1.005-1.030) 07/08/22 03:08 Urine Protein Neg (Negative) 07/08/22 03:08 Urine Glucose (UA) Norm (Normal) 07/08/22 03:08 Urine Ketones Negative (Negative) 07/08/22 03:08 Urine Blood Neg (Negative) 07/08/22 03:08 Urine Nitrate Negative (Negative) 07/08/22 03:08 Urine Bilirubin Neg (Negative) 07/08/22 03:08 Prot Sulfosalicylic Acd Negative (Negative) 07/08/22 03:08 Urine Urobilinogen Norm mg/dL (Negative) 07/08/22 03:08 Ur Leukocyte Esterase Negative (Negative) 07/08/22 03:08 Valproic Acid 63.5 ug/mL (50-100) 07/07/22 21:13 Influenza Type A Ag negative (Negative) 07/08/22 00:47 Influenza Type B Ag negative (Negative) 07/08/22 00:47 SARS-CoV-2 Ag (Rapid) negative (Negative) 07/07/22 23:34 Vitals Last Vital Signs Temp 97.5 F L 07/10/22 14:45 Pulse 57 L 07/10/22 14:45 Resp 16 07/10/22 14:45 BP 110/65 07/10/22 14:45 Pulse Ox 91 07/10/22 14:45 O2 Del Method 07/10/22 12:00 O2 Flow Rate 2 07/09/22 20:00 Discharge Plan Discharge Patient Disposition: Home Health Service Condition: Stable Prescriptions: New Augmentin 500-125 mg tablet 1 tab PO BID Qty: 10 0RF Continued garlic Tablet 300 mg PO DAILY divalproex [Depakote] 500 mg tablet,delayed release (DR/EC) 500 mg PO BID Qty: 180 1RF lamotrigine [Lamictal] 100 mg tablet 50 mg PO BID Qty: 180 3RF acetaminophen [Tylenol 8 Hour] 650 mg tablet extended release 650 mg PO Q12H PRN (Reason: Pain) acetaminophen-codeine [Tylenol-Codeine #3] 300-30 mg tablet 1 tab PO Q6H PRN (Reason: Pain) magnesium 250 mg tablet 250 mg PO DAILY tamsulosin 0.4 mg capsule 0.4 mg PO DAILY levothyroxine 50 mcg capsule 50 mcg PO QDAY cholecalciferol (vitamin D3) [Vitamin D3] 2,000 unit tablet 2,000 unit PO DAILY omega-3 fatty acids 1,000 mg capsule 1,000 mg PO DAILY meclizine 25 mg tablet 25 mg PO QDAY PRN (Reason: Dizziness) zinc 50 mg tablet 50 mg PO DAILY vitamin E (dl, acetate) 400 unit capsule 400 unit PO QDAY ondansetron 4 mg Tablet,Disintegrating 4 mg PO Q8H PRN (Reason: Abdominal Discomfort) latanoprost 0.005 % Drops 1 drp OPHTHALMIC (EYE) BEDTIME ropinirole 1 mg Tablet 2 mg PO BEDTIME sodium chloride 1 gram Tablet 1,000 mg PO DAILY potassium 99 mg Tablet 99 mg PO DAILY memantine 10 mg tablet 10 mg PO BID Mucinex 600 mg tablet extended release 12hr 600 mg PO BID PRN (Reason: Congestion) divalproex 250 mg tablet,delayed release (DR/EC) 250 mg PO BID Vitamin B-12 1,000 mcg Tablet 1,000 mcg PO DAILY No Action valproic acid 250 mg capsule 250 mg PO BID Discharge Orders: Discharge Order (Routine); Ordered 07/10/22 Ordered By: Roger Troy [facility]: [facility] Melendez,LUIS Humphrey [Primary Care Provider] - 07/17/22 9:20 am Discharge Diet: Advance as tolerated Discharge Activity: Resume usual activity Patient Instructions: Amoxicillin/Clavulanate Potassium (By mouth), Pneumonia (ED), Opioid Safety, Seizures Discharge Attestations Time Spent in Discharge Care*: greater than 30 min Quality Metrics Clinical Quality Measures [ No reported AMI, CVA or VTE this stay] Coding Level of Care Code Acute g DC note Exam Detailed Diagnoses Seizure R56.9 Pneumonia J18.9 Alzheimer disease G30.9; F02.80 Restless legs syndrome G25.81 Peripheral neuropathy G62.9 Frontal lobe epilepsy G40.802
== END 2022-07-10 14:47 | disposition home health service (06) | DRG 100 ==
LOC: ER 07-08 01:08 → MEDSURG 07-08 01:19
PROVIDERS: Admitting Provider Internal Medicine; Emergency Provider Emergency Medicine; PCP Nurse Practitioner Family; Visit Provider Internal Medicine
DX: G40.802 Other epilepsy, not intractable, without status epilepticus (principal); J69.0 Pneumonitis due to inhalation of food and vomit; J44.9 Chronic obstructive pulmonary disease, unspecified; G30.9 Alzheimer's disease, unspecified; F02.80 Dementia in other diseases classified elsewhere, unspecified severity, without behavioral disturbance, psychotic disturbance, mood disturbance, and anxiety; G25.81 Restless legs syndrome; G62.9 Polyneuropathy, unspecified; Z86.73 Personal history of transient ischemic attack (TIA), and cerebral infarction without residual deficits; I10 Essential (primary) hypertension; E11.9 Type 2 diabetes mellitus without complications; T42.6X6A Underdosing of other antiepileptic and sedative-hypnotic drugs, initial encounter; Z91.128 Patient's intentional underdosing of medication regimen for other reason; Z87.891 Personal history of nicotine dependence; Z66 Do not resuscitate
CPT/HCPCS: 36415; 70450; 71045; 80048; 80053; 80164; 81003; 83605; 83735; 84145; 84443; 85025; 87040; 87070; 87086; 87205; 87426; 87804; 93005; 94640; 96365; 96367; 96372; 96375; 97116; 97161; 97167; 97530; 97535; 99285; C9113; G0378; J0456; J0696; J1644; J1650; J2060; J2543; J3490; J7030; J7050

== ENCOUNTER → 2022-07-15 09:42 | Outpatient (BNVA) | payer MEDICARE, OTHER, SELFPAY | PROVIDERS: PCP Nurse Practitioner Family; Visit Provider Specialist | DX: G30.9 Alzheimer's disease, unspecified (principal); F02.80 Dementia in other diseases classified elsewhere, unspecified severity, without behavioral disturbance, psychotic disturbance, mood disturbance, and anxiety; G25.81 Restless legs syndrome; G40.802 Other epilepsy, not intractable, without status epilepticus; G40.409 Other generalized epilepsy and epileptic syndromes, not intractable, without status epilepticus | CPT/HCPCS: 36415; 80164; 99213 ==

== ENCOUNTER 2022-10-02 20:14 | Emergency (ER) | payer MEDICARE, OTHER, SELFPAY ==
[2022-10-02 20:17] VITALS: BP 135/79; PULSE 94; RESP 18; TEMP 36.9; O2SAT 96; BMI 25.1
--- NOTE | 2022-10-02 20:24 | W.ED.SEIZURE ---
Documented by User: Leodan Gonzalez MD 10/17/22 04:15 HPI - Seizure General: Chief Complaint: Seizure Stated Complaint: SEIZURE Time Seen by Provider: 10/02/22 20:24 Limitations: altered mental status History of Present Illness: HPI Narrative: Mr. Sandra is a 71-year-old gentleman with complex past medical history including dementia, history of CRAO, seizures presenting to the emergency department for seizure. He has been compliant with his medication regimen and apparently had cataract surgery yesterday and had seizures today and seemed more confused. On my initial evaluation of the patient he appears postictal. He does answer a few questions however overall history is limited. Review of Systems General: Reports: ROS unobtainable due to medical condition and ROS unobtainable due to mental status PFSH ED PFSH: Medical History Alzheimer disease Chronic lower back pain Frontal lobe epilepsy Peripheral neuropathy Pneumonia Restless legs syndrome Seizure Family History Other Diabetes Hypertension Stroke Denies family history of CAD (coronary artery disease) Social History Smoking and tobacco status: former smoker Alcohol intake: never Physical Exam Const: COMMON NORMALS: alert GENERAL APPEARANCE: cooperative and well developed HENMT: COMMON NORMALS: normocephalic and atraumatic HEAD & SCALP: normocephalic and atraumatic THROAT: posterior oropharynx normal Eye: COMMON NORMALS: conjunctivae normal CONJUNCTIVA: Yes conjunctivae normal SCLERA: sclerae normal Neck/C-Spine: COMMON NORMALS: supple GENERAL: Yes trachea midline Resp: COMMON NORMALS: clear to auscultation bilaterally EFFORT & INSPECTION: Yes able to speak in complete sentences AUSCULTATION: clear to auscultation bilaterally Cardio: COMMON NORMALS: regular rate and regular rhythm RATE: regular rate RHYTHM: regular rhythm GI: COMMON NORMALS: Soft to palpation PALPATION: Yes Soft to palpation and No Tenderness to palpation present (GI) Extremity: GENERAL: Yes normal exam except as noted and No edema Neuro: COMMON NORMALS: moves all extremities SENSORIUM/ORIENTATION: Yes alert and No Orientation impaired Psych: MEMORY/COGNITION: Yes memory grossly impaired Course Vital Signs: Vital signs: Vital Signs Temperature 98.4 F 10/02/22 20:17 Pulse Rate 69 10/03/22 04:30 Respiratory Rate 20 H 10/02/22 22:44 Blood Pressure 114/81 10/03/22 04:30 Pulse Oximetry 94 10/03/22 04:30 Oxygen Delivery Me thod Nasal Cannula 10/03/22 04:30 Oxygen Flow Rate 4 10/02/22 22:44 MDM - Seizure MDM Narrative Medical decision making narrative: 71-year-old gentleman with seizure disorder presenting due to seizure. Nonfocal neurologic exam. He is postictal. He is nontoxic. Shortly after initial evaluation I was called back into the room for patient having tonic-clonic seizure. 2 mg of Ativan ordered. Labs with mild leukocytosis, normal hemoglobin. Metabolic panel consistent with seizure with elevated lactic acid and metabolic stress. Hematuria without evidence of urinary tract infection. Head CT with no acute intracranial pathology, incidental findings noted. Patient making slow improvement on reassessment, he does have a history of prolonged postictal period. Handed off to Dr. Ralph pending return to baseline. 71-year-old male checked out to me at shift change by the previous physician. Patient has had multiple seizures. He is slowly recovering. Mental status continues to improve. Laboratory is consistent with recent seizure. It is essentially benign. Head CT is negative. He will be allowed home with close observation by his family. Medical Records Attestation: I reviewed the patient's medical records. Lab Data Attestation: I reviewed the patient's lab results. 10/02/22 20:40 10/02/22 20:40 Labs: Radiology Impressions Head CT 10/02/22 22:02 IMPRESSION: 1. No acute intracranial hemorrhage or mass effect. 2. Changes of microvascular disease. 3. No definite acute infarct by CT, see above. 4. Other findings discussed above. Laboratory Results WBC 12.4 10^3/uL (4.0-10.0) H 10/02/22 20:40 RBC 4.78 10^6/uL (4.1-5.3) 10/02/22 20:40 Hgb 15.8 g/dL (11.7-16.6) 10/02/22 20:40 Hct 49.0 % (42.0-52.0) 10/02/22 20:40 MCV 102.5 fl (80-94) H 10/02/22 20:40 MCH 33.1 pg (28.0-34.0) 10/02/22 20:40 MCHC 32.2 g/dL (30.0-36.0) 10/02/22 20:40 RDW 14.3 % (12.1-15.1) 10/02/22 20:40 Plt Count 222 10^3/cmm (130-400) 10/02/22 20:40 MPV 10.6 fL (7.4-10.4) H 10/02/22 20:40 Neut % (Auto) 51.2 % 10/02/22 20:40 Lymph % (Auto) 33.0 % 10/02/22 20:40 [place] % (Auto) 5.1 % 10/02/22 20:40 Eos % (Auto) 9.4 % 10/02/22 20:40 Baso % (Auto) 1.0 % 10/02/22 20:40 Neut # (Auto) 6.36 10^3/uL (1.8-7.7) 10/02/22 20:40 Lymph # (Auto) 4.1 10^3/uL (0.8-4.8) 10/02/22 20:40 [place] # (Auto) 0.6 10^3/uL (0.2-0.9) 10/02/22 20:40 Eos # (Auto) 1.2 10^3/uL (0.0-0.8) H 10/02/22 20:40 Baso # (Auto) 0.1 10^3/uL (0.0-0.1) 10/02/22 20:40 Nucleated RBC % (auto) 0 % 10/02/22 20:40 Nucleated RBCs # 0.0 /100WBC 10/02/22 20:40 Sodium 139 mmol/L (136-145) 10/02/22 20:40 Potassium 3.5 mmol/L (3.5-5.1) 10/02/22 20:40 Chloride 101 mmol/L (98-107) 10/02/22 20:40 Carbon Dioxide 16 mmol/L (22-29) L 10/02/22 20:40 Anion Gap 25.5 (5-19) H 10/02/22 20:40 BUN 20 mg/dL (8-23) 10/02/22 20:40 Creatinine 1.0 mg/dL (0.7-1.2) 10/02/22 20:40 GFR Calculation 74.1 mL/min (90-130) L 10/02/22 20:40 Glucose 111 mg/dL (65-115) 10/02/22 20:40 POC Glucose 107 mg/dL (70-110) 10/02/22 20:59 Calculated Osmolality 291 mOsm/kg (285-295) 10/02/22 20:40 Lactate 11.4 mmol/L (0.5-2.2) H* 10/02/22 20:40 Calcium 9.2 mg/dL (8.5-10.5) 10/02/22 20:40 Total Bilirubin 0.3 mg/dL (0.15-1.2) 10/02/22 20:40 AST 26 U/L (0-40) 10/02/22 20:40 ALT 19 U/L (0-41) 10/02/22 20:40 Alkaline Phosphatase 77 U/L (40-130) 10/02/22 20:40 Total Protein 7.5 g/dL (6.6-8.7) 10/02/22 20:40 Albumin 4.0 g/dL (3.5-5.2) 10/02/22 20:40 Globulin 3.5 g/dL (1.3-4.6) 10/02/22 20:40 Urine Color Yellow (Yellow) 10/02/22 21:39 Urine Appearance Clear (CLEAR) 10/02/22 21:39 Urine pH 5 (5-7) 10/02/22 21:39 Ur Specific [place] 1.025 (1.005-1.030) 10/02/22 21:39 Urine Protein Neg (Negative) 10/02/22 21:39 Urine Glucose (UA) Norm (Normal) 10/02/22 21:39 Urine Ketones 1+ (Negative) H 10/02/22 21:39 Urine Blood 3+ (Negative) H 10/02/22 21:39 Urine Nitrate Negative (Negative) 10/02/22 21:39 Urine Bilirubin Neg (Negative) 10/02/22 21:39 Urine Urobilinogen Norm mg/dL (Negative) 10/02/22 21:39 Ur Leukocyte Esterase Negative (Negative) 10/02/22 21:39 Urine RBC 5-10 /hpf (0-2) H 10/02/22 21:39 Urine WBC 0-4 /hpf (0-5) H 10/02/22 21:39 Ur Squamous Epith Cells 0-4 /hpf (0-5) H 10/02/22 21:39 Amorphous Sediment Not Reportable 10/02/22 21:39 Urine Bacteria None /hpf (NONE) 10/02/22 21:39 Urine Mucus Trace /hpf 10/02/22 21:39 Discharge Plan Discharge Patient Disposition: Home Clinical Impression: Generalized seizure Condition: Stable Prescriptions: No Action garlic Tablet 300 mg PO DAILY valproic acid 250 mg capsule 250 mg PO BID acetaminophen [Tylenol 8 Hour] 650 mg tablet extended release 650 mg PO Q12H PRN (Reason: Pain) acetaminophen-codeine [Tylenol-Codeine #3] 300-30 mg tablet 1 tab PO Q6H PRN (Reason: Pain) magnesium 250 mg tablet 250 mg PO DAILY tamsulosin 0.4 mg capsule 0.4 mg PO DAILY levothyroxine 50 mcg capsule 50 mcg PO QDAY cholecalciferol (vitamin D3) [Vitamin D3] 2,000 unit tablet 2,000 unit PO DAILY omega-3 fatty acids 1,000 mg capsule 1,000 mg PO DAILY meclizine 25 mg tablet 25 mg PO QDAY PRN (Reason: Dizziness) zinc 50 mg tablet 50 mg PO DAILY vitamin E (dl, acetate) 400 unit capsule 400 unit PO QDAY divalproex [Depakote] 500 mg tablet,delayed release (DR/EC) 500 mg PO BID Qty: 180 1RF divalproex 250 mg tablet,delayed release (DR/EC) 250 mg PO BID 90 Days Qty: 180 0RF lamotrigine [Lamictal] 100 mg tablet 50 mg PO BID Qty: 180 3RF memantine 10 mg tablet 10 mg PO BID 90 Days Qty: 180 3RF ropinirole 1 mg tablet 1 mg PO BEDTIME Qty: 90 0RF ondansetron 4 mg Tablet,Disintegrating 4 mg PO Q8H PRN (Reason: Abdominal Discomfort) latanoprost 0.005 % Drops 1 drp OPHTHALMIC (EYE) BEDTIME sodium chloride 1 gram Tablet 1,000 mg PO DAILY potassium 99 mg Tablet 99 mg PO DAILY Mucinex 600 mg tablet extended release 12hr 600 mg PO BID PRN (Reason: Congestion) Vitamin B-12 1,000 mcg Tablet 1,000 mcg PO DAILY Augmentin 500-125 mg tablet 1 tab PO BID Qty: 10 0RF Discharge Orders: Discharge ED (Routine); Ordered 10/03/22 Ordered By: Leodan Ralph Referrals: Melendez,JAMIE HumphreyN [Primary Care Provider] - Discharge Diet: Usual diet Discharge Activity: Limit activity as instructed Patient Instructions: Recurrent Seizures in Adults (ED) Activity Restrictions/Additional Instructions: Thank you for visiting the emergency department. You were seen and evaluated for seizures. The exact cause of your seizures is unclear though certainly related to your underlying seizure disorder. Please continue your medication regimen. Please follow-up with your primary care provider and neurologist. Return to the emergency department for anything that you are concerned about and feel needs emergency department evaluation. Coding Level of Care Code ED Customer Relations Representative for [employer] Documented by User: Leodan Ralph DO 10/03/22 04:57 HPI - Seizure General: Chief Complaint: Seizure Stated Complaint: SEIZURE Time Seen by Provider: 10/02/22 20:24 PFSH ED PFSH: Medical History Alzheimer disease Chronic lower back pain Frontal lobe epilepsy Peripheral neuropathy Pneumonia Restless legs syndrome Seizure Family History Other Diabetes Hypertension Stroke Denies family history of CAD (coronary artery disease) Social History Smoking and tobacco status: former smoker Alcohol intake: never Course Vital Signs: Vital signs: Vital Signs Temperature 98.4 F 10/02/22 20:17 Pulse Rate 69 10/03/22 04:30 Respiratory Rate 20 H 10/02/22 22:44 Blood Pressure 114/81 10/03/22 04:30 Pulse Oximetry 94 10/03/22 04:30 Oxygen Delivery Me thod Nasal Cannula 10/03/22 04:30 Oxygen Flow Rate 4 10/02/22 22:44 MDM - Seizure MDM Narrative Medical decision making narrative: Shortly after initial evaluation I was called back into the room for patient having tonic-clonic seizure. 2 mg of Ativan ordered. 71-year-old male checked out to me at shift change by the previous physician. Patient has had multiple seizures. He is slowly recovering. Mental status continues to improve. Laboratory is consistent with recent seizure. It is essentially benign. Head CT is negative. He will be allowed home with close observation by his family. Lab Data 10/02/22 20:40 10/02/22 20:40 Labs: Radiology Impressions Head CT 10/02/22 22:02 IMPRESSION: 1. No acute intracranial hemorrhage or mass effect. 2. Changes of microvascular disease. 3. No definite acute infarct by CT, see above. 4. Other findings discussed above. Laboratory Results WBC 12.4 10^3/uL (4.0-10.0) H 10/02/22 20:40 RBC 4.78 10^6/uL (4.1-5.3) 10/02/22 20:40 Hgb 15.8 g/dL (11.7-16.6) 10/02/22 20:40 Hct 49.0 % (42.0-52.0) 10/02/22 20:40 MCV 102.5 fl (80-94) H 10/02/22 20:40 MCH 33.1 pg (28.0-34.0) 10/02/22 20:40 MCHC 32.2 g/dL (30.0-36.0) 10/02/22 20:40 RDW 14.3 % (12.1-15.1) 10/02/22 20:40 Plt Count 222 10^3/cmm (130-400) 10/02/22 20:40 MPV 10.6 fL (7.4-10.4) H 10/02/22 20:40 Neut % (Auto) 51.2 % 10/02/22 20:40 Lymph % (Auto) 33.0 % 10/02/22 20:40 [place] % (Auto) 5.1 % 10/02/22 20:40 Eos % (Auto) 9.4 % 10/02/22 20:40 Baso % (Auto) 1.0 % 10/02/22 20:40 Neut # (Auto) 6.36 10^3/uL (1.8-7.7) 10/02/22 20:40 Lymph # (Auto) 4.1 10^3/uL (0.8-4.8) 10/02/22 20:40 [place] # (Auto) 0.6 10^3/uL (0.2-0.9) 10/02/22 20:40 Eos # (Auto) 1.2 10^3/uL (0.0-0.8) H 10/02/22 20:40 Baso # (Auto) 0.1 10^3/uL (0.0-0.1) 10/02/22 20:40 Nucleated RBC % (auto) 0 % 10/02/22 20:40 Nucleated RBCs # 0.0 /100WBC 10/02/22 20:40 Sodium 139 mmol/L (136-145) 10/02/22 20:40 Potassium 3.5 mmol/L (3.5-5.1) 10/02/22 20:40 Chloride 101 mmol/L (98-107) 10/02/22 20:40 Carbon Dioxide 16 mmol/L (22-29) L 10/02/22 20:40 Anion Gap 25.5 (5-19) H 10/02/22 20:40 BUN 20 mg/dL (8-23) 10/02/22 20:40 Creatinine 1.0 mg/dL (0.7-1.2) 10/02/22 20:40 GFR Calculation 74.1 mL/min (90-130) L 10/02/22 20:40 Glucose 111 mg/dL (65-115) 10/02/22 20:40 POC Glucose 107 mg/dL (70-110) 10/02/22 20:59 Calculated Osmolality 291 mOsm/kg (285-295) 10/02/22 20:40 Lactate 11.4 mmol/L (0.5-2.2) H* 10/02/22 20:40 Calcium 9.2 mg/dL (8.5-10.5) 10/02/22 20:40 Total Bilirubin 0.3 mg/dL (0.15-1.2) 10/02/22 20:40 AST 26 U/L (0-40) 10/02/22 20:40 ALT 19 U/L (0-41) 10/02/22 20:40 Alkaline Phosphatase 77 U/L (40-130) 10/02/22 20:40 Total Protein 7.5 g/dL (6.6-8.7) 10/02/22 20:40 Albumin 4.0 g/dL (3.5-5.2) 10/02/22 20:40 Globulin 3.5 g/dL (1.3-4.6) 10/02/22 20:40 Urine Color Yellow (Yellow) 10/02/22 21:39 Urine Appearance Clear (CLEAR) 10/02/22 21:39 Urine pH 5 (5-7) 10/02/22 21:39 Ur Specific [place] 1.025 (1.005-1.030) 10/02/22 21:39 Urine Protein Neg (Negative) 10/02/22 21:39 Urine Glucose (UA) Norm (Normal) 10/02/22 21:39 Urine Ketones 1+ (Negative) H 10/02/22 21:39 Urine Blood 3+ (Negative) H 10/02/22 21:39 Urine Nitrate Negative (Negative) 10/02/22 21:39 Urine Bilirubin Neg (Negative) 10/02/22 21:39 Urine Urobilinogen Norm mg/dL (Negative) 10/02/22 21:39 Ur Leukocyte Esterase Negative (Negative) 10/02/22 21:39 Urine RBC 5-10 /hpf (0-2) H 10/02/22 21:39 Urine WBC 0-4 /hpf (0-5) H 10/02/22 21:39 Ur Squamous Epith Cells 0-4 /hpf (0-5) H 10/02/22 21:39 Amorphous Sediment Not Reportable 10/02/22 21:39 Urine Bacteria None /hpf (NONE) 10/02/22 21:39 Urine Mucus Trace /hpf 10/02/22 21:39 Discharge Plan Discharge Patient Disposition: Home Clinical Impression: Generalized seizure Condition: Stable Prescriptions: No Action garlic Tablet 300 mg PO DAILY valproic acid 250 mg capsule 250 mg PO BID acetaminophen [Tylenol 8 Hour] 650 mg tablet extended release 650 mg PO Q12H PRN (Reason: Pain) acetaminophen-codeine [Tylenol-Codeine #3] 300-30 mg tablet 1 tab PO Q6H PRN (Reason: Pain) magnesium 250 mg tablet 250 mg PO DAILY tamsulosin 0.4 mg capsule 0.4 mg PO DAILY levothyroxine 50 mcg capsule 50 mcg PO QDAY cholecalciferol (vitamin D3) [Vitamin D3] 2,000 unit tablet 2,000 unit PO DAILY omega-3 fatty acids 1,000 mg capsule 1,000 mg PO DAILY meclizine 25 mg tablet 25 mg PO QDAY PRN (Reason: Dizziness) zinc 50 mg tablet 50 mg PO DAILY vitamin E (dl, acetate) 400 unit capsule 400 unit PO QDAY divalproex [Depakote] 500 mg tablet,delayed release (DR/EC) 500 mg PO BID Qty: 180 1RF divalproex 250 mg tablet,delayed release (DR/EC) 250 mg PO BID 90 Days Qty: 180 0RF lamotrigine [Lamictal] 100 mg tablet 50 mg PO BID Qty: 180 3RF memantine 10 mg tablet 10 mg PO BID 90 Days Qty: 180 3RF ropinirole 1 mg tablet 1 mg PO BEDTIME Qty: 90 0RF ondansetron 4 mg Tablet,Disintegrating 4 mg PO Q8H PRN (Reason: Abdominal Discomfort) latanoprost 0.005 % Drops 1 drp OPHTHALMIC (EYE) BEDTIME sodium chloride 1 gram Tablet 1,000 mg PO DAILY potassium 99 mg Tablet 99 mg PO DAILY Mucinex 600 mg tablet extended release 12hr 600 mg PO BID PRN (Reason: Congestion) Vitamin B-12 1,000 mcg Tablet 1,000 mcg PO DAILY Augmentin 500-125 mg tablet 1 tab PO BID Qty: 10 0RF Discharge Orders: Discharge ED (Routine); Ordered 10/03/22 Ordered By: Leodan Ralph Referrals: Milagro Melendez APN [Primary Care Provider] - Discharge Diet: Usual diet Discharge Activity: Limit activity as instructed Patient Instructions: Recurrent Seizures in Adults (ED) Activity Restrictions/Additional Instructions: Thank you for visiting the emergency department. You were seen and evaluated for seizures. The exact cause of your seizures is unclear though certainly related to your underlying seizure disorder. Please continue your medication regimen. Please follow-up with your primary care provider and neurologist. Return to the emergency department for anything that you are concerned about and feel needs emergency department evaluation. Coding Level of Care Code ED Customer Relations Representative for Alex Fenton
[2022-10-02] MEDS: LORazepam 2 mg/mL INJ 1 mL IVP (20:40)
[2022-10-02 20:50] VITALS: BP 140/100; PULSE 68; RESP 25; O2SAT 94
--- NOTE | 2022-10-02 20:53 | ECG_ITS ---
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 Measurements Intervals [place] Rate: 102 P: 39 SD: 200 QRS: -46 QRSD: 124 T: 35 QT: 372 QTc: 485 Interpretive Statements SINUS TACHYCARDIA LEFT ANTERIOR FASCICULAR BLOCK [QRS AXIS <= -45, QR IN I, RS IN II] Compared to ECG 07/10/2022 10:32:28 Left anterior fascicular block now present Sinus rhythm no longer present Intraventricular conduction delay no longer present Electronically Signed On 10-03-2022 7:12:35 CDT by Ronald Byrd M.D. [id number]
[2022-10-02 21:01] LABS: Basophils # 0.1 10^3/uL (0.0-0.1); Eosinophils # 1.2 10^3/uL (0.0-0.8); Eosinophils % 9.4 %; Hemoglobin 15.8 g/dL (11.7-16.6); Lymphocytes # 4.1 10^3/uL (0.8-4.8); Mean Corpuscular HGB Conc 32.2 g/dL (30.0-36.0); Mean Corpuscular Hemoglobin 33.1 pg (28.0-34.0); Mean Corpuscular Volume 102.5 fl (80-94); Mean Platelet Volume 10.6 fL (7.4-10.4); Monocytes # 0.6 10^3/uL (0.2-0.9); Monocytes % 5.1 %; Neutrophils # 6.36 10^3/uL (1.8-7.7); Neutrophils % 51.2 %; Nucleated Red Blood Cells % 0 %; Platelet Count 222 10^3/cmm (130-400); Red Blood Count 4.78 10^6/uL (4.1-5.3); Red Cell Distribution Width 14.3 % (12.1-15.1); White Blood Count 12.4 10^3/uL (4.0-10.0)
[2022-10-02] MEDS: sodium chloride 0.9% 500 ML IV (21:05)
[2022-10-02 21:21] LABS: Alanine Aminotransferase 19 U/L (0-41); Alkaline Phosphatase 77 U/L (40-130); Anion Gap 25.5 (5-19); Aspartate Amino Transferase 26 U/L (0-40); Blood Urea Nitrogen 20 mg/dL (8-23); Calcium 9.2 mg/dL (8.5-10.5); Carbon Dioxide 16 mmol/L (22-29); Chloride 101 mmol/L (98-107); Globulin 3.5 g/dL (1.3-4.6); Glomerular Filtration Rate 74.1 mL/min (90-130); Glucose 111 mg/dL (65-115); Osmolality Calculated 291 mOsm/kg (285-295); Potassium 3.5 mmol/L (3.5-5.1); Sodium 139 mmol/L (136-145); Total Bilirubin 0.3 mg/dL (0.15-1.2); Total Protein 7.5 g/dL (6.6-8.7)
[2022-10-02 21:27] LABS: Lactate (Lactic Acid level) 11.4 mmol/L (0.5-2.2)
[2022-10-02 21:51] VITALS: BP 128/81; PULSE 63; RESP 20; O2SAT 96
--- NOTE | 2022-10-02 22:02 | CTR_ITS ---
PROCEDURE INFORMATION: Exam: CT Head Without Contrast Exam date and time: 10/02/2022 10:34 PM Age: 71 years old Clinical indication: Altered mental status/memory loss and other: Seizure; Additional info: AMS, seizure TECHNIQUE: Imaging protocol: Computed tomography of the head without contrast. Radiation optimization: All CT scans at this facility use at least one of these dose optimization techniques: automated exposure control; mA and/or kV adjustment per patient size (includes targeted exams where dose is matched to clinical indication); or iterative reconstruction. REPORTING DATA: Count of CT and Cardiac NM exams in prior 12 months: This patient has received [address] and 0 known cardiac nuclear medicine studies in the 12 months prior to the current study. COMPARISON: CT head wo con* [id number] 07/08/2022 12:18 AM RADIATION DOSE METRICS: Total DLP (mGy-cm): 1304.45 FINDINGS: Brain: No acute intracranial hemorrhage or mass effect. There is prominent decreased attenuation in the periventricular white matter, likely from microvascular disease. No definite acute infarct by CT. MRI could be more sensitive/specific for detection, as clinically directed. Cerebral ventricles: Ventricle size is normal for age. Paranasal sinuses: Included paranasal sinuses are essentially clear. Mastoid air cells: No significant acute finding. Bones/joints: No definite acute skull fracture. Soft tissues: No significant acute finding. Vasculature: Vascular calcifications in the internal carotid and vertebral basilar systems. CT/CT head wo con* [id number] IMPRESSION: 1. No acute intracranial hemorrhage or mass effect. 2. Changes of microvascular disease. 3. No definite acute infarct by CT, see above. 4. Other findings discussed above.
[2022-10-02 22:07] LABS: Glucose Urine UA Norm (Normal); Protein Urine Neg (Negative); Specific Gravity, Urine 1.025 (1.005-1.030); Urine Appearance Clear (CLEAR); Urine Color Yellow (Yellow); pH Urine 5 (5-7)
[2022-10-02 22:08] LABS: Add Urine Microscopic? YES; Bilirubin Urine Neg (Negative); Blood Urine 3+ (Negative); Ketones Urine 1+ (Negative); Leukocyte Esterase Urine Negative (Negative); Nitrate Urine Negative (Negative); Urobilinogen Urine Norm (Negative)
[2022-10-02 22:09] LABS: Squamous Epithelial Cell Urine 0-4 /hpf (0-5); WBC Urine 0-4 /hpf (0-5)
[2022-10-02 22:10] LABS: Mucus Urine TRACE /hpf
[2022-10-02] MEDS: LORazepam 2 mg/mL INJ 1 mL 1 MG IVP (22:41)
[2022-10-02 22:44] VITALS: BP 130/76; PULSE 67; RESP 20; O2SAT 98
[2022-10-03 04:30] VITALS: BP 114/81; PULSE 69; O2SAT 94
[2022-10-04 08:52] LABS: Glucose Point of Care 107 mg/dL (70-110)
== END 2022-10-03 05:20 | disposition home or self-care (01) ==
PROVIDERS: Emergency Medicine; Emergency Provider Emergency Medicine; PCP Nurse Practitioner Family
DX: G40.409 Other generalized epilepsy and epileptic syndromes, not intractable, without status epilepticus (principal); Z87.891 Personal history of nicotine dependence; F03.90 Unspecified dementia, unspecified severity, without behavioral disturbance, psychotic disturbance, mood disturbance, and anxiety
CPT/HCPCS: 36415; 36416; 51701; 70450; 80053; 81001; 82962; 83605; 85025; 93005; 96361; 96374; 96376; 99285; J2060; J7040

== ENCOUNTER 2023-03-20 18:01 | Emergency (ER) | payer MEDICARE, OTHER, SELFPAY ==
[2023-03-20 18:11] VITALS: BP 131/95; PULSE 104; RESP 19; O2SAT 92
--- NOTE | 2023-03-20 18:11 | PC.NURSE ---
PT arrives with c-collar in place
--- NOTE | 2023-03-20 18:21 | CTR_ITS ---
PROCEDURE INFORMATION: Exam: CT Cervical Spine Without Contrast Exam date and time: 03/20/2023 6:35 PM Age: 72 years old Clinical indication: Injury or trauma; Fall; Blunt trauma; Additional info: Fall seizure, head injury TECHNIQUE: Imaging protocol: Computed tomography of the cervical spine without contrast. Radiation optimization: All CT scans at this facility use at least one of these dose optimization techniques: automated exposure control; mA and/or kV adjustment per patient size (includes targeted exams where dose is matched to clinical indication); or iterative reconstruction. REPORTING DATA: Count of CT and Cardiac NM exams in prior 12 months: This patient has received 2 known CTs and 0 known cardiac nuclear medicine studies in the 12 months prior to the current study. COMPARISON: CT cervical spin wo con* [id number] 06/01/2016 9:40 PM RADIATION DOSE METRICS: Total DLP (mGy-cm): 571.47 FINDINGS: Bones/joints: No acute fracture. Normal alignment. There is uoly-[id number] multilevel degenerative disc disease. Lungs: There is COPD noted. Soft tissues: Unremarkable. CT/CT cervical spin wo con* [id number] IMPRESSION: No evidence of acute fracture.
--- NOTE | 2023-03-20 18:21 | CTR_ITS ---
PROCEDURE INFORMATION: Exam: CT Head Without Contrast Exam date and time: 03/20/2023 6:32 PM Age: 72 years old Clinical indication: Injury or trauma; Fall; Blunt trauma (contusions or hematomas) and concussion/head injury; Additional info: Sz, fall head inj TECHNIQUE: Imaging protocol: Computed tomography of the head without contrast. Radiation optimization: All CT scans at this facility use at least one of these dose optimization techniques: automated exposure control; mA and/or kV adjustment per patient size (includes targeted exams where dose is matched to clinical indication); or iterative reconstruction. REPORTING DATA: Count of CT and Cardiac NM exams in prior 12 months: This patient has received 2 known CTs and 0 known cardiac nuclear medicine studies in the 12 months prior to the current study. COMPARISON: CT head wo con* [id number] 10/02/2022 10:34 PM RADIATION DOSE METRICS: Total DLP (mGy-cm): 1195.1 FINDINGS: Brain: There is mqru-by-lzkvgcqi small vessel disease. There is no evidence of acute parenchymal hemorrhage, extra-axial collection, or acute infarction. There is no mass effect, midline shift, or downward herniation. Cerebral ventricles: No ventriculomegaly. Paranasal sinuses: Visualized sinuses are unremarkable. No fluid levels. Mastoid air cells: Visualized mastoid air cells are well aerated. Bones/joints: Unremarkable. No acute fracture. Soft tissues: There is right frontal scalp hematoma. CT/CT head wo con* [id number] IMPRESSION: Dzio-ct-[id number] small vessel disease. No evidence of acute intracranial process.
--- NOTE | 2023-03-20 18:21 | XRR_ITS ---
PROCEDURE INFORMATION: Exam: XR Chest Exam date and time: 03/20/2023 6:28 PM Age: 72 years old Clinical indication: Other: Seizure with fall; Patient HX: Fall with seizure; Additional info: Bjorn TECHNIQUE: Imaging protocol: Radiologic exam of the chest. Views: 1 view. COMPARISON: CR (CHEST, ) 07/07/2022 10:51 PM FINDINGS: Tubes, catheters and devices: The paddle of a spinal stimulator overlies the T8 through T10 vertebral body levels. Lungs: Stable calcified granuloma in the left upper lobe. No focal consolidation. No pulmonary edema. Pleural spaces: No pleural effusion. No pneumothorax. Heart/Mediastinum: Stable mild enlargement of the cardiac silhouette. Mediastinal contours are unremarkable. Vasculature: Stable vascular calcifications in the aorta. Bones/joints: Bones are diffusely osteopenic. Degenerative changes in the spine and shoulders. Osseous findings are stable. XR/XR chest 1V portable [id number] IMPRESSION: 1. No acute cardiopulmonary process. 2. Incidental/nonacute findings are listed in the report.
--- NOTE | 2023-03-20 18:22 | ECG_ITS ---
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 Measurements Intervals [place] Rate: 86 P: 44 MA: 204 QRS: -46 QRSD: 110 T: 23 QT: 392 QTc: 470 Interpretive Statements SINUS RHYTHM WITH FREQUENT VENTRICULAR PREMATURE COMPLEXES LEFT ATRIAL ENLARGEMENT [-0.15mV P-WAVE IN V1/V2] INCOMPLETE RIGHT BUNDLE BRANCH BLOCK [90+ ms QRS DURATION, TERMINAL R IN V1/V2, 40+ ms S IN I/aVL/V4/V5/V6] LEFT ANTERIOR FASCICULAR BLOCK [QRS AXIS <= -45, QR IN I, RS IN II] ANTERIOR MYOCARDIAL INFARCTION , OF INDETERMINATE AGE [40+ ms Q WAVE AND/OR ST/T ABNORMALITY IN V3/V4] Compared to ECG 10/02/2022 20:53:21 Ventricular premature complex(es) now present Atrial abnormality now present Incomplete right bundle-branch block now present Myocardial infarct finding now present Sinus tachycardia no longer present Electronically Signed On 03-21-2023 5:08:48 CDT by Chrissy Elena M.D. [id number]
[2023-03-20 18:24] VITALS: TEMP 36.3
[2023-03-20] MEDS: sodium chloride 0.9% 1,000 ML 999 ML IV (18:44)
[2023-03-20 19:14] LABS: Alanine Aminotransferase 16 U/L (0-41); Albumin Level 3.9 g/dL (3.5-5.2); Alkaline Phosphatase 66 U/L (40-130); Anion Gap 14.1 (5-19); Aspartate Amino Transferase 20 U/L (0-40); Blood Urea Nitrogen 20 mg/dL (8-23); Calcium 9.2 mg/dL (8.5-10.5); Carbon Dioxide 27 mmol/L (22-29); Chloride 101 mmol/L (98-107); Creatine Phosphokinase 62 U/L (39-308); Globulin 2.9 g/dL (1.3-4.6); Glomerular Filtration Rate 66.2 mL/min (90-130); Glucose 101 mg/dL (65-115); Osmolality Calculated 289 mOsm/kg (285-295); Phosphorus 2.6 mg/dL (2.5-4.5); Potassium 4.1 mmol/L (3.5-5.1); Sodium 138 mmol/L (136-145); Total Bilirubin 0.3 mg/dL (0.15-1.2); Total Protein 6.8 g/dL (6.6-8.7)
[2023-03-20 19:16] LABS: Basophils # 0.1 10^3/uL (0.0-0.1); Basophils % 0.8 %; Eosinophils # 0.8 10^3/uL (0.0-0.8); Eosinophils % 10.2 %; Hematocrit 44.3 % (37-53); Lymphocytes # 1.1 10^3/uL (0.8-4.8); Lymphocytes % 15.2 %; Mean Corpuscular HGB Conc 33.6 g/dL (30-55); Mean Corpuscular Hemoglobin 33.6 pg (27-33); Mean Corpuscular Volume 99.8 fl (82-101); Mean Platelet Volume 11.2 fL (7.4-10.4); Monocytes # 0.4 10^3/uL (0.2-0.9); Monocytes % 5.4 %; Neutrophils # 5.05 10^3/uL (1.8-7.7); Neutrophils % 67.9 %; Nucleated Red Blood Cells % 0 %; Platelet Count 162 10^3/cmm (157-399); Red Blood Count 4.44 10^6/uL (3.85-5.65); Red Cell Distribution Width 13.1 % (12.1-15.1); White Blood Count 7.44 10^3/uL (3.29-11.43)
[2023-03-20 19:19] VITALS: BP 121/77; PULSE 82; RESP 15; O2SAT 93
[2023-03-20 19:20] LABS: Alcohol Level < 10 mg/dL (0-10)
[2023-03-20 19:45] LABS: Add Urine Microscopic? NO; Charge for UA Resulting for Rev
[2023-03-20 19:50] LABS: Bilirubin Urine Neg (Negative); Blood Urine Neg (Negative); Glucose Urine UA Norm (Normal); Ketones Urine Negative (Negative); Leukocyte Esterase Urine Negative (Negative); Nitrate Urine Negative (Negative); Protein Urine Neg (Negative); Urine Appearance Clear (CLEAR); Urine Color Yellow (Yellow); Urobilinogen Urine Neg (Negative); pH Urine 6 (5-7)
[2023-03-20 19:59] LABS: Amphetamines Screen Urine Negative (Negative); Barbiturates Screen Urine Negative (Negative); Benzodiazepines Screen Urine Negative (Negative); Cocaine Screen Urine Negative (Negative); Opiate Screen Urine Negative (Negative); PCP Screen Urine Negative (Negative); THC Screen Urine Negative (Negative)
--- NOTE | 2023-03-20 20:12 | ED_ITS ---
HPI - Seizure General: Chief Complaint: Seizure Stated Complaint: FOREHEAD LAC S/P FALL; SEIZURE Time Seen by Provider: 03/20/23 18:05 History of Present Illness: HPI Narrative: 72-year-old male with a history of seizure disorder. He was found by his family at home. He had fallen on the carport. It is unknown whether he seized prior to the fall. He sustained a contusion and laceration to his scalp. He does not remember the event. He did have a tonic-clonic seizure in the ambulance on the way to the hospital that was short-lived. He was given 1 mg of Ativan. The patient does not remember any of the events of the day. He does not complain of any significant pain or injury. Seizure History: Yes Place: in route and home Associated symptoms: Deny chest pain or fever(s) Review of Systems General: Reports: Other (taken from ) Const: Denies: fever(s) ENMT: Denies: throat pain Card: Denies: chest pain Resp: Denies: dyspnea GI: Reports: vomiting PFSH ED PFSH: Medical History Alzheimer disease Chronic lower back pain Frontal lobe epilepsy Peripheral neuropathy Pneumonia Restless legs syndrome Seizure Family History Other Diabetes Hypertension Stroke Denies family history of CAD (coronary artery disease) Social History Smoking and tobacco status: former smoker Alcohol intake: never Substance/Drug Use: never Physical Exam Const: GENERAL APPEARANCE: cooperative and frail appearing NUTRITIONAL APPEARANCE: thin ORIENTATION/CONSCIOUSNESS: Yes awake, Yes oriented to perso n, Yes oriented to place and Yes confused (mildly, clearing); not oriented to time HENMT: COMMON NORMALS: normocephalic and Normal external nose present HEAD & SCALP: normocephalic and laceration (right forehead) NOSE: Normal external nose present and Normal nares present Eye: COMMON NORMALS: Equal, round and reactive pupils present and EOMs intact bilaterally PUPIL: Yes Equal, round and reactive pupils present Neck/C-Spine: COMMON NORMALS: supple GENERAL: Yes trachea midline Chest: CHEST: Yes Symmetrical chest wall rise Resp: EFFORT & INSPECTION: Yes symmetric chest movement Cardio: COMMON NORMALS: regular rate and regular rhythm RATE: regular rate RHYTHM: regular rhythm GI: COMMON NORMALS: Normal to inspection, nondistended, normoactive bowel soun ds present PALPATION: No Tenderness to palpation present (GI) Extremity: NARRATIVE EXTREMITY EXAM: Atraumatic Neuro: MASOUD COMA SCALE: document GCS findings [place] coma scale eye opening: Spontaneous [place] coma scale verbal response: Confused [place] coma scale motor response: Obey commands [place] coma scale total score: 14 SENSORIUM/ORIENTATION: Yes oriented to person, Yes oriented to place and No oriented to time Psych: ATTITUDE: Yes calm Course Vital Signs: Vital signs: Vital Signs Temperature 97.3 F L 03/20/23 18:24 Pulse Rate 97 03/20/23 21:30 Respiratory Rate 18 03/20/23 21:30 Blood Pressure 137/93 03/20/23 21:30 Pulse Oximetry 92 03/20/23 21:30 Oxygen Delivery Me thod Room Air 03/20/23 20:56 MDM - Seizure MDM Narrative Medical decision making narrative: 72-year-old male with a history of seizure disorder. Unknown whether the patient seized prior to his fall. He did have 1 seizure in route to the hospital on the ambulance. He received 1 mg of Ativan. He is now back to his baseline. Forehead laceration is repaired with Dermabond. CBC is normal. BMP is normal. Other laboratory is not remarkable including drug screen and alcohol. His CT of the head shows small vessel disease with no acute findings. CT of the cervical spine is negative. Chest x-ray is negative. He has taken his seizure medication here. Valproic acid level is pending. He will be allowed discharge. Lab Data 03/20/23 18:50 03/20/23 18:50 Labs: Radiology Impressions Cervical Spine CT 03/20/23 18:21 IMPRESSION: No evidence of acute fracture. Chest X-Ray 03/20/23 18:21 IMPRESSION: 1. No acute cardiopulmonary process. 2. Incidental/nonacute findings are listed in the report. Head CT 03/20/23 18:21 IMPRESSION: Irje-fk-mpsmnyii small vessel disease. No evidence of acute intracranial process. Laboratory Results WBC 7.44 10^3/uL (3.29-11.43) 03/20/23 18:50 RBC 4.44 10^6/uL (3.85-5.65) 03/20/23 18:50 Hgb 14.90 g/dL (11.27-16.99) 03/20/23 18:50 Hct 44.3 % (37-53) 03/20/23 18:50 MCV 99.8 fl (82-101) 03/20/23 18:50 MCH 33.6 pg (27-33) H 03/20/23 18:50 MCHC 33.6 g/dL (30-55) 03/20/23 18:50 RDW 13.1 % (12.1-15.1) 03/20/23 18:50 Plt Count 162 10^3/cmm (157-399) 03/20/23 18:50 MPV 11.2 fL (7.4-10.4) H 03/20/23 18:50 Neut % (Auto) 67.9 % 03/20/23 18:50 Lymph % (Auto) 15.2 % 03/20/23 18:50 [place] % (Auto) 5.4 % 03/20/23 18:50 Eos % (Auto) 10.2 % 03/20/23 18:50 Baso % (Auto) 0.8 % 03/20/23 18:50 Neut # (Auto) 5.05 10^3/uL (1.8-7.7) 03/20/23 18:50 Lymph # (Auto) 1.1 10^3/uL (0.8-4.8) 03/20/23 18:50 [place] # (Auto) 0.4 10^3/uL (0.2-0.9) 03/20/23 18:50 Eos # (Auto) 0.8 10^3/uL (0.0-0.8) 03/20/23 18:50 Baso # (Auto) 0.1 10^3/uL (0.0-0.1) 03/20/23 18:50 Nucleated RBC % (auto) 0 % 03/20/23 18:50 Nucleated RBCs # 0.0 /100WBC 03/20/23 18:50 Sodium 138 mmol/L (136-145) 03/20/23 18:50 Potassium 4.1 mmol/L (3.5-5.1) 03/20/23 18:50 Chloride 101 mmol/L (98-107) 03/20/23 18:50 Carbon Dioxide 27 mmol/L (22-29) 03/20/23 18:50 Anion Gap 14.1 (5-19) 03/20/23 18:50 BUN 20 mg/dL (8-23) 03/20/23 18:50 Creatinine 1.1 mg/dL (0.7-1.2) 03/20/23 18:50 GFR Calculation 66.2 mL/min (90-130) L 03/20/23 18:50 Glucose 101 mg/dL (65-115) 03/20/23 18:50 Calculated Osmolality 289 mOsm/kg (285-295) 03/20/23 18:50 Calcium 9.2 mg/dL (8.5-10.5) 03/20/23 18:50 Phosphorus 2.6 mg/dL (2.5-4.5) 03/20/23 18:50 Magnesium 2.0 mg/dL (1.7-2.3) 03/20/23 18:50 Total Bilirubin 0.3 mg/dL (0.15-1.2) 03/20/23 18:50 AST 20 U/L (0-40) 03/20/23 18:50 ALT 16 U/L (0-41) 03/20/23 18:50 Alkaline Phosphatase 66 U/L (40-130) 03/20/23 18:50 Creatine Kinase 62 U/L (39-308) 03/20/23 18:50 C-Reactive Protein 3.0 mg/L (0.0-4.9) 03/20/23 18:50 Total Protein 6.8 g/dL (6.6-8.7) 03/20/23 18:50 Albumin 3.9 g/dL (3.5-5.2) 03/20/23 18:50 Globulin 2.9 g/dL (1.3-4.6) 03/20/23 18:50 Urine Color Yellow (Yellow) 03/20/23 19:40 Urine Appearance Clear (CLEAR) 03/20/23 19:40 Urine pH 6 (5-7) 03/20/23 19:40 Ur Specific [place] 1.020 (1.005-1.030) 03/20/23 19:40 Urine Protein Neg (Negative) 03/20/23 19:40 Urine Glucose (UA) Norm (Normal) 03/20/23 19:40 Urine Ketones Negative (Negative) 03/20/23 19:40 Urine Blood Neg (Negative) 03/20/23 19:40 Urine Nitrate Negative (Negative) 03/20/23 19:40 Urine Bilirubin Neg (Negative) 03/20/23 19:40 Urine Urobilinogen Neg mg/dL (Negative) 03/20/23 19:40 Ur Leukocyte Esterase Negative (Negative) 03/20/23 19:40 Urine Opiates Screen Negative ng/mL (Negative) 03/20/23 19:40 Ur Barbiturates Screen Negative ng/mL (Negative) 03/20/23 19:40 Valproic Acid 56.2 ug/mL (50-100) 03/20/23 18:50 Ur Phencyclidine Scrn Negative ng/mL (Negative) 03/20/23 19:40 Ur Amphetamines Screen Negative ng/mL (Negative) 03/20/23 19:40 U Benzodiazepines Scrn Negative ng/mL (Negative) 03/20/23 19:40 Urine Cocaine Screen Negative ng/mL (Negative) 03/20/23 19:40 U Marijuana (THC) Screen Negative ng/mL (Negative) 03/20/23 19:40 Ethyl Alcohol < 10 mg/dL (0-10) 03/20/23 18:50 All radiology interpretation(s) finalized by discharge Discharge Plan Discharge Patient Disposition: Home Clinical Impression: Concussion, Generalized seizure, Laceration of scalp, Hematoma of frontal scalp Condition: Stable Prescriptions: No Action garlic Tablet 300 mg PO DAILY valproic acid 250 mg capsule 250 mg PO BID acetaminophen [Tylenol 8 Hour] 650 mg tablet extended release 650 mg PO Q12H PRN (Reason: Pain) acetaminophen-codeine [Tylenol-Codeine #3] 300-30 mg tablet 1 tab PO Q6H PRN (Reason: Pain) magnesium 250 mg tablet 250 mg PO DAILY tamsulosin 0.4 mg capsule 0.4 mg PO DAILY levothyroxine 50 mcg capsule 50 mcg PO QDAY cholecalciferol (vitamin D3) [Vitamin D3] 2,000 unit tablet 2,000 unit PO DAILY omega-3 fatty acids 1,000 mg capsule 1,000 mg PO DAILY meclizine 25 mg tablet 25 mg PO QDAY PRN (Reason: Dizziness) zinc 50 mg tablet 50 mg PO DAILY vitamin E (dl, acetate) 400 unit capsule 400 unit PO QDAY lamotrigine [Lamictal] 100 mg tablet 50 mg PO BID Qty: 180 3RF memantine 10 mg tablet 10 mg PO BID 90 Days Qty: 180 3RF divalproex 250 mg tablet,delayed release (DR/EC) See Rx Instructions .ROUTE .COMPLEX Qty: 180 8RF Dose Instruction: TAKE ONE TABLET BY MOUTH TWICE DAILY Rx Instructions: TAKE ONE TABLET BY MOUTH TWICE DAILY divalproex [Depakote] 500 mg tablet,delayed release (DR/EC) 500 mg PO BID Qty: 180 2RF ropinirole 1 mg tablet See Rx Instructions .ROUTE .COMPLEX Qty: 90 0RF Dose Instruction: TAKE ONE TABLET BY MOUTH At Bedtime Rx Instructions: TAKE ONE TABLET BY MOUTH At Bedtime ondansetron 4 mg Tablet,Disintegrating 4 mg PO Q8H PRN (Reason: Abdominal Discomfort) latanoprost 0.005 % Drops 1 drp OPHTHALMIC (EYE) BEDTIME sodium chloride 1 gram Tablet 1,000 mg PO DAILY potassium 99 mg Tablet 99 mg PO DAILY Mucinex 600 mg tablet extended release 12hr 600 mg PO BID PRN (Reason: Congestion) Vitamin B-12 1,000 mcg Tablet 1,000 mcg PO DAILY Augmentin 500-125 mg tablet 1 tab PO BID Qty: 10 0RF Discharge Orders: Discharge ED (Routine); Ordered 03/20/23 Ordered By: Leodan Ralph Referrals: Lynne Vallecillo MD [Primary Care Provider] - Patient Instructions: Scalp Laceration, Concussion (ED), Scalp Contusion in Adults (ED), Recurrent Seizures in Adults (ED), Pain Management Activity Restrictions/Additional Instructions: Return for repeated episodes of seizure, worsening mental status, worsening weakness, or any other concerns. Follow-up with your doctor next week. Coding Level of Care Code ED Design Editor for Alex Fenton
[2023-03-20 20:56] VITALS: BP 137/93; PULSE 111; RESP 16; O2SAT 94
[2023-03-20 21:30] VITALS: BP 137/93; PULSE 97; RESP 18; O2SAT 92
[2023-03-20 22:06] LABS: Valproic Acid Level 56.2 ug/mL (50-100)
== END 2023-03-20 21:34 | disposition home or self-care (01) ==
PROVIDERS: Emergency Provider Emergency Medicine; PCP Specialist
DX: G40.409 Other generalized epilepsy and epileptic syndromes, not intractable, without status epilepticus (principal); S06.0XAA Concussion with loss of consciousness status unknown, initial encounter; S01.81XA Laceration without foreign body of other part of head, initial encounter; S00.03XA Contusion of scalp, initial encounter; G30.9 Alzheimer's disease, unspecified; F02.80 Dementia in other diseases classified elsewhere, unspecified severity, without behavioral disturbance, psychotic disturbance, mood disturbance, and anxiety; Z87.891 Personal history of nicotine dependence; W18.39XA Other fall on same level, initial encounter
CPT/HCPCS: 12001; 12011; 70450; 71045; 72125; 80053; 80164; 80306; 80307; 81003; 82550; 83735; 84100; 85025; 86140; 93005; 99285; J7030

== ENCOUNTER → 2023-04-20 14:35 | Outpatient (BNVA) | payer MEDICARE, OTHER, SELFPAY | PROVIDERS: PCP Specialist; Visit Provider Specialist | DX: S06.0XAA Concussion with loss of consciousness status unknown, initial encounter (principal); F32.A Depression, unspecified; R56.9 Unspecified convulsions; W18.09XA Striking against other object with subsequent fall, initial encounter | CPT/HCPCS: 99215 ==

== ENCOUNTER → 2023-07-09 07:37 | Outpatient (BNVA) | payer MEDICARE, OTHER, SELFPAY | PROVIDERS: PCP Specialist; Visit Provider Specialist | DX: G30.9 Alzheimer's disease, unspecified (principal); F02.80 Dementia in other diseases classified elsewhere, unspecified severity, without behavioral disturbance, psychotic disturbance, mood disturbance, and anxiety; G72.9 Myopathy, unspecified; G40.802 Other epilepsy, not intractable, without status epilepticus; M51.36 Other intervertebral disc degeneration, lumbar region | CPT/HCPCS: 99214 ==

== ENCOUNTER 2023-08-10 21:55 | Inpatient (IN) | payer MEDICARE, OTHER, SELFPAY ==
[2023-08-10 21:56] VITALS: BP 143/88; PULSE 93; RESP 18; TEMP 37.1; O2SAT 92; BMI 28.0
--- NOTE | 2023-08-10 22:03 | XRR_ITS ---
PROCEDURE INFORMATION: Exam: XR Chest Exam date and time: 08/10/2023 10:10 PM Age: 72 years old Clinical indication: Other: Seizure; Prior surgery; Surgery date: 6+ months; Surgery type: Spinal stimulator TECHNIQUE: Imaging protocol: Radiologic exam of the chest. Views: 1 view. COMPARISON: CR XR chest 1V portable [id number] 03/20/2023 6:28 PM FINDINGS: Lungs: Increased interstitial markings with peribronchial cuffing in the lung bases are nonspecific but can be seen the setting of bronchitis, pulmonary vascular congestion, viral infection and small-vessel airways disease. Pleural spaces: Unremarkable. No pleural effusion. No pneumothorax. Heart/Mediastinum: Unremarkable. No cardiomegaly. Bones/joints: Unremarkable. XR/XR chest 1V portable [id number] IMPRESSION: Increased interstitial markings with peribronchial cuffing in the lung bases are nonspecific but can be seen the setting of bronchitis, pulmonary vascular congestion, viral infection and small-vessel airways disease.
--- NOTE | 2023-08-10 22:08 | CTR_ITS ---
PROCEDURE INFORMATION: Exam: CT Head Without Contrast Exam date and time: 08/10/2023 10:18 PM Age: 72 years old Clinical indication: Other: Siezure; Additional info: Seizure TECHNIQUE: Imaging protocol: Computed tomography of the head without contrast. Radiation optimization: All CT scans at this facility use at least one of these dose optimization techniques: automated exposure control; mA and/or kV adjustment per patient size (includes targeted exams where dose is matched to clinical indication); or iterative reconstruction. COMPARISON: CT head wo con* [id number] 03/20/2023 6:32 PM RADIATION DOSE METRICS: Total DLP (mGy-cm): 1031.48 FINDINGS: Brain: Subcortical and periventricular white matter changes consistent with small-vessel ischemic disease in the appropriate clinical setting. Small-vessel ischemic disease. Cerebral ventricles: No ventriculomegaly. Paranasal sinuses: Visualized sinuses are unremarkable. No fluid levels. Mastoid air cells: Visualized mastoid air cells are well aerated. Bones/joints: Unremarkable. No acute fracture. Soft tissues: Unremarkable. CT/CT head wo con* [id number] IMPRESSION: 1. No acute intracranial abnormality. 2. Small-vessel ischemic disease.
--- NOTE | 2023-08-10 22:09 | ED_ITS ---
HPI - Seizure 2 General: Chief Complaint: Seizure Stated Complaint: post seizure Time Seen by Provider: 08/10/23 21:58 History of Present Illness: HPI Narrative: Patient arrives to the hospital via EMS secondary to having a seizure approximately 1999. It was witnessed by his said he lasted about 2 minutes. Patient does have a history of seizures. Patient also has history of dementia. Patient's last seizure was about a month ago. Patient does see Dr. Vallecillo. Patient's said that he is not coming around and responding as he normally does sweat so she called EMS for him to be brought appear to be further evaluated. Seizure History: Yes Review of Systems 2 General: Reports: 10 or more systems reviewed and unremarkable except in HPI and below PFSH ED 2 PFSH: Medical History Concussion Pneumonia Seizure Chronic lower back pain Alzheimer disease Restless legs syndrome Peripheral neuropathy Frontal lobe epilepsy Family History Other Diabetes Hypertension Stroke Denies family history of CAD (coronary artery disease) Social History Smoking and tobacco/nicotine status: former use of tobacco/nicotine Alcohol intake: never Substance/Drug Use: never Physical Exam 2 Narrative: EXAM NARRATIVE: Patient alert to verbal stimuli looking around but will not answer questions or follow commands Const: COMMON NORMALS: no acute distress, average body habitus, healthy appearing, alert and well nourished HENMT: COMMON NORMALS: normocephalic, atraumatic, hearing grossly normal bilaterally, external ears normal, Normal external nose present, moist oral mucous membranes and oropharynx normal HEAD & SCALP: normocephalic and atraumatic NOSE: Normal external nose present EXTERNAL EAR: Yes external ears normal Eye: COMMON NORMALS: Equal, round and reactive pupils present (Right pupil irregular shaped), EOMs intact bilaterally, conjunctivae normal and no scleral icterus CONJUNCTIVA: Yes conjunctivae normal PUPIL: Yes Equal, round and reactive pupils present (Right pupil irregular shaped) Neck/C-Spine: COMMON NORMALS: full ROM, no lymphadenopathy, supple, no meningeal signs and no JVD Chest: COMMONS NORMALS: normal inspection of the chest and normal palpation of entire chest wall Resp: COMMON NORMALS: normal respiratory effort, No retractions, No use of accessory muscles and clear to auscultation bilaterally AUSCULTATION: clear to auscultation bilaterally Cardio: COMMON NORMALS: no JVD, regular rate, regular rhythm, S1 normal heart sound present, S2 normal heart sound present, No gallops present (Cardio), No clicks present (Cardio), No murmurs present (Cardio) and No rub (Cardio) R ATE: regular rate RHYTHM: regular rhythm HEART SOUNDS: S1 normal heart sound present and S2 normal heart sound present GI: COMMON NORMALS: Normal to inspection, nondistended, normoactive bowel sounds present, Soft to palpation, non-tender, No hepatosplenomegaly present and no masses PALPATION: Yes Soft to palpation and Yes No hepatosplenomegaly present Extremity: NARRATIVE EXTREMITY EXAM: No bilateral lower extremity edema Neuro: SENSORIUM/ORIENTATION: Yes alert MENINGEAL SIGNS: Yes no meningeal signs Course 2 Vital Signs: Vital signs: Vital Signs Temperature 98.7 F 08/10/23 21:56 Pulse Rate 90 08/11/23 01:25 Respiratory Rate 26 H 08/11/23 01:25 Blood Pressure 114/90 08/11/23 01:25 Pulse Oximetry 94 08/11/23 01:25 Oxygen Delivery Me thod Nasal Cannula 08/11/23 01:25 Oxygen Flow Rate 4 08/11/23 01:25 MDM - Seizure MDM Narrative Medical decision making narrative: During his ER stay patient did have 1 mild tonic-clonic type seizure where he was given 2 mg of Ativan. Chest x-ray, head CT was obtained which is essentially benign. Lab work was obtained which revealed a initial troponin of 55, 2-hour troponin was roughly 184 delta of about 125, serial EKGs were unchanged. Valproic acid level was low at 33.6. Patient was given 500 mg of Depakote IV. These results was discussed with the . And she agreed that we should place patient to hospital for further evaluation and treatment. Dr. Quick was consulted who agreed to place patient in OBS.. Differential Diagnosis Seizure Differential Diagnosis: Likely epileptic seizure Medical Records Attestation: I reviewed the patient's medical records. Lab Data Attestation: I reviewed the patient's lab results. 08/10/23 22:10 08/10/23 22:10 Labs: Radiology Impressions Chest X-Ray 08/10/23 22:03 IMPRESSION: Increased interstitial markings with peribronchial cuffing in the lung bases are nonspecific but can be seen the setting of bronchitis, pulmonary vascular congestion, viral infection and small-vessel airways disease. Head CT 08/10/23 22:08 IMPRESSION: 1. No acute intracranial abnormality. 2. Small-vessel ischemic disease. Laboratory Results WBC 7.12 10^3/uL (3.29-11.43) 08/10/23 22:10 RBC 4.81 10^6/uL (3.85-5.65) 08/10/23 22:10 Hgb 15.50 g/dL (11.27-16.99) 08/10/23 22:10 Hct 45.8 % (37-53) 08/10/23 22:10 MCV 95.2 fl (82-101) 08/10/23 22:10 MCH 32.2 pg (27-33) 08/10/23 22:10 MCHC 33.8 g/dL (30-55) 08/10/23 22:10 RDW 13.2 % (12.1-15.1) 08/10/23 22:10 Plt Count 296 10^3/cmm (157-399) 08/10/23 22:10 MPV 10.0 fL (7.4-10.4) 08/10/23 22:10 Neut % (Auto) 72.6 % 08/10/23 22:10 Lymph % (Auto) 13.1 % 08/10/23 22:10 [place] % (Auto) 6.5 % 08/10/23 22:10 Eos % (Auto) 6.7 % 08/10/23 22:10 Baso % (Auto) 0.7 % 08/10/23 22:10 Neut # (Auto) 5.17 10^3/uL (1.8-7.7) 08/10/23 22:10 Lymph # (Auto) 0.9 10^3/uL (0.8-4.8) 08/10/23 22:10 [place] # (Auto) 0.5 10^3/uL (0.2-0.9) 08/10/23 22:10 Eos # (Auto) 0.5 10^3/uL (0.0-0.8) 08/10/23 22:10 Baso # (Auto) 0.1 10^3/uL (0.0-0.1) 08/10/23 22:10 Nucleated RBC % (auto) 0 % 08/10/23 22:10 Nucleated RBCs # 0.0 /100WBC 08/10/23 22:10 Sodium 142 mmol/L (136-145) 08/10/23 22:10 Potassium 4.2 mmol/L (3.5-5.1) 08/10/23 22:10 Chloride 104 mmol/L (98-107) 08/10/23 22:10 Carbon Dioxide 24 mmol/L (22-29) 08/10/23 22:10 Anion Gap 18.2 (5-19) 08/10/23 22:10 BUN 23 mg/dL (8-23) 08/10/23 22:10 Creatinine 1.1 mg/dL (0.7-1.2) 08/10/23 22:10 GFR Calculation 66.2 mL/min (90-130) L 08/10/23 22:10 Glucose 101 mg/dL (65-115) 08/10/23 22:10 Calculated Osmolality 298 mOsm/kg (285-295) H 08/10/23 22:10 Calcium 10.1 mg/dL (8.5-10.5) 08/10/23 22:10 Magnesium 2.0 mg/dL (1.7-2.3) 08/10/23 22:10 Total Bilirubin 0.3 mg/dL (0.15-1.2) 08/10/23 22:10 AST 29 U/L (0-40) 08/10/23 22:10 ALT 17 U/L (0-41) 08/10/23 22:10 Alkaline Phosphatase 100 U/L (40-130) 08/10/23 22:10 Troponin T Baseline 55 ng/L (0-15) H 08/10/23 22:10 Troponin T 120 Minute 181.8 ng/L (0-15) H 08/11/23 01:01 Delta Troponin T 126.8 ABS# (0-10) H* 08/11/23 01:01 Total Protein 7.6 g/dL (6.6-8.7) 08/10/23 22:10 Albumin 3.6 g/dL (3.5-5.2) 08/10/23 22:10 Globulin 4.0 g/dL (1.3-4.6) 08/10/23 22:10 Urine Color Straw (Yellow) 08/10/23 23:13 Urine Appearance Hazy (CLEAR) A 08/10/23 23:13 Urine pH 8 (5-7) H 08/10/23 23:13 Ur Specific [place] 1.010 (1.005-1.030) 08/10/23 23:13 Urine Protein Neg (Negative) 08/10/23 23:13 Urine Glucose (UA) Norm (Normal) 08/10/23 23:13 Urine Ketones Negative (Negative) 08/10/23 23:13 Urine Blood Neg (Negative) 08/10/23 23:13 Urine Nitrate Negative (Negative) 08/10/23 23:13 Urine Bilirubin Neg (Negative) 08/10/23 23:13 Prot Sulfosalicylic Acd Negative (Negative) 08/10/23 23:13 Urine Urobilinogen Neg mg/dL (Negative) 08/10/23 23:13 Ur Leukocyte Esterase Negative (Negative) 08/10/23 23:13 Urine RBC None /hpf (0-2) 08/10/23 23:13 Urine WBC None /hpf (0-5) 08/10/23 23:13 Ur Squamous Epith Cells None /hpf (0-5) 08/10/23 23:13 Amorphous Sediment 3+ /hpf 08/10/23 23:13 Urine Bacteria 1+ /hpf (NONE) H 08/10/23 23:13 Valproic Acid 33.6 ug/mL (50-100) L 08/10/23 22:10 All radiology interpretation(s) finalized by discharge EKG Data EKG 1: Attestation: I personally reviewed and interpreted this EKG as follows: EKG interpretation date: 08/10/23 EKG interpretation time: 22:31 Prior EKG tracings: not available for review Interpretation: EKG shows ventricular rate 98 bpm, GA interval 168, QRS duration 124, QTc of 414, sinus rhythm with occasional PVC Discharge Plan Discharge Patient Disposition: Placed in Observation Clinical Impression: Seizure, Non-ST elevation PR (NSTEMI), Hypoxia Dementia Qualifiers: Dementia type: Alzheimer's Alzheimer's disease onset: unspecified onset D ementia severity: moderate Dementia behavioral or psychological symptom: without behavioral, psychotic, or mood disturbance or anxiety Qualified Code(s): G30.9 - Alzheimer's disease, unspecified Coding Level of Care Code ED Medical Record Assistant for Alex Fenton
[2023-08-10 22:22] LABS: Basophils # 0.1 10^3/uL (0.0-0.1); Basophils % 0.7 %; Eosinophils # 0.5 10^3/uL (0.0-0.8); Eosinophils % 6.7 %; Hematocrit 45.8 % (37-53); Lymphocytes # 0.9 10^3/uL (0.8-4.8); Lymphocytes % 13.1 %; Mean Corpuscular HGB Conc 33.8 g/dL (30-55); Mean Corpuscular Hemoglobin 32.2 pg (27-33); Mean Corpuscular Volume 95.2 fl (82-101); Monocytes # 0.5 10^3/uL (0.2-0.9); Monocytes % 6.5 %; Neutrophils # 5.17 10^3/uL (1.8-7.7); Neutrophils % 72.6 %; Nucleated Red Blood Cells % 0 %; Platelet Count 296 10^3/cmm (157-399); Red Blood Count 4.81 10^6/uL (3.85-5.65); Red Cell Distribution Width 13.2 % (12.1-15.1); White Blood Count 7.12 10^3/uL (3.29-11.43)
--- NOTE | 2023-08-10 22:31 | ECG_ITS ---
[facility] Test Date: 2023-08-10 Pat Name: Ketan Sandra Department: Room: Gender: Male Crew Leader Gluing: : 1950 Requested By: Adonis Dawn Order Number: [id number] Bogdan MD: Ronald Byrd M.D. Measurements Intervals [place] Rate: 98 P: 39 [place]: 168 QRS: -67 QRSD: 124 T: 72 QT: 359 QTc: 459 Interpretive Statements SINUS RHYTHM WITH FREQUENT VENTRICULAR PREMATURE COMPLEXES POSSIBLE RIGHT VENTRICULAR CONDUCTION DELAY [RSR (QR) IN V1/V2] LEFT ANTERIOR FASCICULAR BLOCK [QRS AXIS <= -45, QR IN I, RS IN II] SEPTAL MYOCARDIAL INFARCTION , OF INDETERMINATE AGE [40+ ms Q WAVE IN V1/V2] Compared to ECG 03/20/2023 20:05:50 Atrial abnormality no longer present Incomplete right bundle-branch block no longer present Myocardial infarct finding still present Electronically Signed On 08-11-2023 7:18:18 HOT SHOT by Ronald Byrd M.D. [id number] neal
[2023-08-10 22:35] VITALS: BP 130/96; PULSE 98; RESP 18; O2SAT 90
[2023-08-10 22:38] LABS: Troponin(5th) Baseline 55 ng/L (0-15)
[2023-08-10 22:40] LABS: Alanine Aminotransferase 17 U/L (0-41); Albumin Level 3.6 g/dL (3.5-5.2); Alkaline Phosphatase 100 U/L (40-130); Blood Urea Nitrogen 23 mg/dL (8-23); Calcium 10.1 mg/dL (8.5-10.5); Carbon Dioxide 24 mmol/L (22-29); Chloride 104 mmol/L (98-107); Glomerular Filtration Rate 66.2 mL/min (90-130); Glucose 101 mg/dL (65-115); Osmolality Calculated 298 mOsm/kg (285-295); Sodium 142 mmol/L (136-145); Total Bilirubin 0.3 mg/dL (0.15-1.2); Total Protein 7.6 g/dL (6.6-8.7)
[2023-08-10 22:42] LABS: Valproic Acid Level 33.6 ug/mL (50-100)
[2023-08-10 22:45] LABS: Anion Gap 18.2 (5-19); Aspartate Amino Transferase 29 U/L (0-40); Potassium 4.2 mmol/L (3.5-5.1)
[2023-08-10] MEDS: LORazepam 2 mg/mL INJ 10 mL MDV IVP (23:07)
--- NOTE | 2023-08-10 23:15 | PC.NURSE ---
Patient had a tonic-clonic seizure at approximately 2301, that lasted less than [address] Dawn was notified and this nurse was given verbal order to administer 2mg Ativan IVP once. Patient did have seizure pads already placed on rails of bed, and suction was available at bedside.
--- NOTE | 2023-08-10 23:18 | PC.NURSE ---
Ativan was overrode in the Pyxis for incident of seizure; overriding was witnessed by charge nurse SURINDER Viera.
[2023-08-10 23:26] LABS: Add Urine Culture? No; Add Urine Microscopic? YES; Amorphous Sediment Urine 3+ /hpf; Bacteria Urine 1+ /hpf; Bilirubin Urine Neg (Negative); Blood Urine Neg (Negative); Glucose Urine UA Norm (Normal); Ketones Urine Negative (Negative); Leukocyte Esterase Urine Negative (Negative); Nitrate Urine Negative (Negative); Protein Urine Neg (Negative); Sulfosalicylic Acid Urine Negative (Negative); Urine Appearance Hazy (CLEAR); Urine Color Straw (Yellow); Urobilinogen Urine Neg (Negative); pH Urine 8 (5-7)
[2023-08-10] MEDS: valproic acid inj 500 MG in sodium chloride 0.9% 50 ML 55 MG IV (23:54)
[2023-08-11] VITALS (124 sets, daily range): BP systolic 79–136; BP diastolic 50–92; PULSE 72–98; RESP 12–41; TEMP 36.4; O2SAT 84–96; BMI 22.0
[2023-08-11 01:27] LABS: Troponin 5 2HR 181.8 ng/L (0-15); Troponin 5 2HR Delta 126.8 ABS# (0-10)
--- NOTE | 2023-08-11 01:32 | ECG_ITS ---
[facility] Test Date: 2023-08-11 Pat Name: Ketan Sandra Department: Room: EDIP Gender: Male Experimental Preflight Mechanic: : 1950 Requested By: Adonis Dawn Order Number: [id number] Bogdan MD: Ronald Byrd M.D. Measurements Intervals [place] Rate: 97 P: 29 [place]: 164 QRS: -64 QRSD: 126 T: 57 QT: 372 QTc: 473 Interpretive Statements SINUS RHYTHM WITH FREQUENT VENTRICULAR PREMATURE COMPLEXES POSSIBLE RIGHT VENTRICULAR CONDUCTION DELAY [RSR (QR) IN V1/V2] LEFT ANTERIOR FASCICULAR BLOCK [QRS AXIS <= -45, QR IN I, RS IN II] ANTEROSEPTAL MYOCARDIAL INFARCTION , OF INDETERMINATE AGE [40+ ms Q WAVE IN V1-V4] Compared to ECG 08/10/2023 22:31:29 No significant changes Electronically Signed On 08-11-2023 7:19:15 DENTAL SCHEDULER by Ronald Byrd M.D. [id number]
--- NOTE | 2023-08-11 01:49 | P.HP_ITS ---
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 Upon evaluation, patient is in a stuporous state and unable to provide history. Family members bedside and she provides a history. She reports patient had a seizure was prompted their visit to the emergency department. She states this was his second seizures in March. He reportedly had a fall prior to the seizure in March. He has a known seizure disorders and follows with Dr. Vallecillo. Per ED provider, patient had another seizure while in the emergency department. He was given Ativan. Afterwards patient went to a stuporous state. Labs revealed a subtherapeutic Depakote level. Spouse states that on Wednesday she found one of the 250 mg pills by cleaning so she thinks he may have missed a partial dose. Troponin was obtained found to be elevated. And a positive delta troponin. There were no reported chest pains. Spouse also reports he has been suffering from bronchitis recently. Patient's been symptomatic for about 2 weeks. He has been on antibiotics and recently completed a Z-Yakov. Chest x-ray in the emergency department showed evidence of bronchitis. Review of Systems 2 Narrative: A complete review of systems was attempted to be obtained but could not due to mental status/stuporous state. Medications/Allergies Home Medications Medication Instructions Recorded Confirmed Last Taken Type acetaminophen 300 mg-codeine 30 mg 1 tab PO Q6H PRN Pain 08/02/19 07/09/23 Unknown History tablet (Tylenol-Codeine #3) acetaminophen 650 mg 650 mg PO Q12H PRN Pain 08/02/19 07/09/23 Unknown History tablet,extended release (Tylenol 8 Hour) cholecalciferol (vitamin D3) 50 2,000 unit PO DAILY 08/02/19 07/09/23 Unknown History mcg (2,000 unit) tablet (Vitamin D3) levothyroxine 50 mcg capsule 50 mcg PO QDAY 08/02/19 07/09/23 Unknown History magnesium 250 mg tablet 250 mg PO DAILY 08/02/19 07/09/23 Unknown History meclizine 25 mg tablet 25 mg PO QDAY PRN Dizziness 08/02/19 07/09/23 Unknown History omega-3 fatty acids 1,000 mg 1,000 mg PO DAILY 08/02/19 07/09/23 Unknown History capsule tamsulosin 0.4 mg capsule 0.4 mg PO DAILY 08/02/19 07/09/23 Unknown History vitamin E (dl, acetate) 180 mg 400 unit PO QDAY 08/02/19 07/09/23 Unknown History (400 unit) capsule zinc 50 mg tablet 50 mg PO DAILY 08/02/19 07/09/23 Unknown History ondansetron 4 mg disintegrating 4 mg PO Q8H PRN Abdominal 07/03/21 07/09/23 07/03/21 08:00 History tablet Discomfort garlic 300 mg PO DAILY 01/12/22 07/09/23 Unknown History cyanocobalamin (vitamin B-12) 1,000 mcg PO DAILY 07/08/22 07/09/23 Unknown History 1,000 mcg tablet (Vitamin B-12) guaifenesin 600 mg tablet, 600 mg PO BID PRN Congestion 07/08/22 07/09/23 Unknown History extended release 12 hr (Mucinex) latanoprost 0.005 % eye drops 1 drp ophthalmic (eye) BEDTIME 07/08/22 07/09/23 Unknown History potassium 99 mg tablet 99 mg PO DAILY 07/08/22 07/09/23 Unknown History sodium chloride 1 gram tablet 1,000 mg PO DAILY 07/08/22 07/09/23 Unknown History amoxicillin 500 mg-potassium 1 tab PO BID #10 tabs 07/10/22 07/09/23 Unknown Rx clavulanate 125 mg tablet (Augmentin) divalproex 250 mg tablet,delayed See Rx Instructions .Route 04/20/23 07/09/23 Unknown Rx release .COMPLEX #180 tabs divalproex 500 mg tablet,delayed 500 mg PO BID #180 tabs 04/20/23 07/09/23 Unknown Rx release (Depakote) lamotrigine 100 mg tablet 50 mg (1/2 x 100 mg) PO BID #90 04/20/23 07/09/23 Unknown Rx (Lamictal) tabs ropinirole 1 mg tablet See Rx Instructions .Route 04/20/23 07/09/23 Unknown Rx .COMPLEX #300 tabs triamterene 37.5 ea PO 04/20/23 07/09/23 Unknown History mg-hydrochlorothiazide 25 mg tablet mirabegron 25 mg tablet,extended 25 mg PO DAILY 07/09/23 07/09/23 Unknown History release 24 hr memantine 10 mg tablet See Rx Instructions .Route 08/10/23 Unknown Rx .COMPLEX #180 tabs Allergies Allergy/AdvReac Type Severity Reaction Status Date / Time aloe vera AdvReac itching/aggie Verified 08/10/23 22:08 h metronidazole [From Flagyl] AdvReac seizure Verified 08/10/23 22:08 phenytoin [From Dilantin] AdvReac rash Verified 08/10/23 22:08 PFSH Acute 2 PFSH: Medical History Concussion Pneumonia Seizure Chronic lower back pain Alzheimer disease Restless legs syndrome Peripheral neuropathy Frontal lobe epilepsy Surgical History S/P insertion of spinal cord stimulator Family History Other Diabetes Hypertension Stroke Denies family history of CAD (coronary artery disease) Social History Smoking and tobacco/nicotine status: former use of tobacco/nicotine Alcohol intake: never Substance/Drug Use: never Vitals/I&O/Wt Last Vital Signs Temp 98.7 F 08/10/23 21:56 Pulse 95 08/11/23 01:43 Resp 18 08/11/23 01:43 BP 106/85 08/11/23 01:43 Pulse Ox 92 08/11/23 01:43 O2 Del Method Nasal Cannula 08/11/23 01:43 O2 Flow Rate 4 08/11/23 01:43 08/10/23 08/10/23 08/11/23 14:59 22:59 06:59 Intake Total 55 / 55 Balance 55 / 55 Weight last 48 hrs Weight 86.183 kg Physical Exam 2 Narrative: General: Patient is in a stuporous state. Head: Normocephalic. Atraumatic. Eyes closed. Neck: No JVD. Cardiovascular: RRR. No gallops. No murmurs. No peripheral edema. Lungs: Upper airway noises auscultated, no use of accessory muscles, no crackles or wheezes. Skin: No jaundice. No rashes. Abdomen: Normal bowel sounds, abdomen soft and nontender. Extremities: No cyanosis or clubbing. Musculoskeletal: No swollen or erythematous joints. Neurological: Stuporous state. No myoclonus. A full neurological exam cannot be performed due to clinical status. Data 08/10/23 22:10 08/10/23 22:10 A&P Assessment and plan (1) Frontal lobe epilepsy: With breakthrough seizure x [address] negative for acute findings Depakote level subtherapeutic Rotate to Depakote 1000 mg IV every 12 hours (home dose 750mg twice daily) Continue Lamictal Ativan PRN for seizures Consider neurology consultation in AM Seizure precautions (2) Elevated troponin: Seizures associated with elevated troponin There are no reports of chest pain EKG reviewed, no acute ST changes Telemetry monitoring Trend troponin (3) Post-ictal state: Patient is in stuporous state, likely sequela medication side effect of Ativan as well as postictal state Monitor mentation Supportive care (4) Bronchitis: Checks x-ray reviewed Recently completed antibiotics per spouse (5) Dementia: At risk of delirium Encourage family participation in care Avoid sedating medications Qualifiers: Alzheimer's disease onset: unspecified onset Dementia behavioral or psychological symptom: without behavioral, psychotic, or mood disturbance or anxiety Dementia severity: moderate Dementia type: Alzheimer's Qualified Code(s): G30.9 - Alzheimer's disease, unspecified; F02.B0 - Dementia in other diseases classified elsewhere, moderate, without behavioral disturbance, psychotic disturbance, mood disturbance, and anxiety (6) Restless legs syndrome: Reconcile home meds after update Plan DVT prophylaxis: Lovenox Attestations 2 Medical Necessity Statement*: Patient presents with breakthrough seizure with ED course complicated by additional breakthrough seizure requiring Ativan producing a postictal/stuporous state with abnormal troponin levels with expected hospitalization not to cross 2 midnights. Coding Level of Care Code Acute Code for [facility] Fwd Diagnoses Frontal lobe epilepsy G40.802 Elevated troponin R79.89 Post-ictal state R56.9 Bronchitis J40 Dementia G30.9; F02.B0 Alzheimer's disease onset: unspecified onset Dementia behavioral or psychological symptom: without behavioral, psychotic, or mood disturbance or anxiety Dementia severity: moderate Dementia type: Alzheimer's Restless legs syndrome G25.81
--- NOTE | 2023-08-11 04:12 | ECG_ITS ---
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 Measurements Intervals [place] Rate: 94 P: 49 [place]: 192 QRS: -74 QRSD: 116 T: 77 QT: 367 QTc: 460 Interpretive Statements SINUS RHYTHM WITH FREQUENT VENTRICULAR PREMATURE COMPLEXES POSSIBLE LEFT ATRIAL ENLARGEMENT [-0.1mV P-WAVE IN V1/V2] INCOMPLETE RIGHT BUNDLE BRANCH BLOCK [90+ ms QRS DURATION, TERMINAL R IN V1/V2, 40+ ms S IN I/aVL/V4/V5/V6] LEFT ANTERIOR FASCICULAR BLOCK [QRS AXIS <= -45, QR IN I, RS IN II] ANTEROSEPTAL MYOCARDIAL INFARCTION , OF INDETERMINATE AGE [40+ ms Q WAVE IN V1-V4] Compared to ECG 08/11/2023 01:32:48 Incomplete right bundle-branch block now present Myocardial infarct finding still present Electronically Signed On 08-11-2023 7:19:08 AUTOMOTIVE CONSULTANT by Ronald Byrd M.D. [id number] neal
--- NOTE | 2023-08-11 04:26 | PC.NURSE ---
Patient had an episode of urinary incontinence. Bedding and depends were changed; patient was wiped up and placed in clean, new gown. Side rails raised, call light within reach, and neither patient nor spouse had any concerns or needs.
[2023-08-11 04:37] LABS: Troponin 5 6HR 262.8 ng/L (0-15); Troponin 5 6HR Delta 207.8 ng/L (0-12)
--- NOTE | 2023-08-11 09:38 | P.PN_ITS ---
Subjective 2 Subjective: Seen at bedside in ED this AM pt continues to be lethargic but answering questions slowly. alert to person and location Spouse states he missed at least 1 dosage of depakote. per spous he has similar appearance after seizures. lasting 48hrs. she is concerned about his chest. Troponins progressively elevated. no CP Sx, no new EKG changes CXR shows evidence of bronchitis Vitals/I&O/Wt Last Vital Signs Temp 98.7 F 08/10/23 21:56 Pulse 80 08/11/23 08:15 Resp 20 H 08/11/23 08:15 BP 95/62 08/11/23 08:15 Pulse Ox 94 08/11/23 08:15 O2 Del Method Nasal Cannula 08/11/23 06:46 O2 Flow Rate 4 08/11/23 06:46 08/10/23 08/11/23 08/11/23 22:59 06:59 14:59 Intake Total 55 / 55 Balance 55 / 55 Weight last 48 hrs Weight 190 lb Physical Exam 2 Narrative: General: lethargic, alert to self and location Head: Normocephalic. Atraumatic. Eyes closed. Cardiovascular: RRR. No gallops. No murmurs. No peripheral edema. Lungs: Upper airway noises auscultated, no use of accessory muscles, no crackles or wheezes. Skin: No jaundice. No rashes. Abdomen: Non tender, non distended, NABS, no hepatomegaly Extremities: No cyanosis or clubbing. Musculoskeletal: No swollen or erythematous joints. Neurological: lethargic state. No myoclonus. A full neurological exam cannot be performed due to clinical status. did have 5/5 formal waiter/waitress strength and followed some basic commands. Data 08/10/23 22:10 08/10/23 22:10 A&P Assessment and plan (1) Frontal lobe epilepsy: breakthrough seizure x [address] negative for acute findings Depakote level subtherapeutic Rotate to Depakote 1000 mg IV every 12 hours (home dose 750mg twice daily) Continue Lamictal Ativan PRN for seizures Seizure precautions (2) Elevated troponin: Seizures associated with elevated troponin There are no reports of chest pain EKG reviewed, no acute ST changes Telemetry monitoring Troponins trending upwards. no current concern for stress-induced cardiomyopathy as pt is chest pain free and w/o EKG changes. (3) Post-ictal state: Patient is in lethargic, likely sequela medication side effect of Ativan as well as postictal state Monitor mentation Supportive care (4) Bronchitis: per XR completed Abx (5) Dementia: Encourage family participation in care Avoid sedating medications Qualifiers: Alzheimer's disease onset: unspecified onset Dementia behavioral or psychological symptom: without behavioral, psychotic, or mood disturbance or anxiety Dementia severity: moderate Dementia type: Alzheimer's Qualified Code(s): G30.9 - Alzheimer's disease, unspecified; F02.B0 - Dementia in other diseases classified elsewhere, moderate, without behavioral disturbance, psychotic disturbance, mood disturbance, and anxiety (6) Hypotension: (7) Aspiration into airway: Plan Ketan Sandra is a 72 year old male with a past medical history significant for dementia, 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 Upon evaluation, patient is in a stuporous state and unable to provide history. Family members bedside and she provides a history. She reports patient had a seizure was prompted their visit to the emergency department. He has a known seizure disorders and follows with Dr. Vallecillo. Spouse states that on Wednesday she found one of the 250 mg pills by cleaning so she thinks he may have missed a partial dose. Troponin was obtained found to be elevated. And a positive delta troponin. There were no reported chest pains. Spouse also reports he has been suffering from bronchitis recently. Patient's been symptomatic for about 2 weeks. He has been on antibiotics and recently completed a Z-Yakov. Chest x-ray in the emergency department showed evidence of bronchitis. troponin elevation likely 2/2 seizures as no EKG changes. hypotensive in ED, given IV bolus of LR, will start on maintenance of 120cc/hr Cx pending Depakote 1000mg BID IV, re-eval in 24hrs. monitor neuro function. if no improvement will consult neurology. anticpate improvement in next 24hrs. NPO pending ST eval DVT prophylaxis: Lovenox Attestations 2 Medical Necessity Statement*: observation Coding Level of Care Code 02955 Diagnoses Frontal lobe epilepsy G40.802 Elevated troponin R79.89 Post-ictal state R56.9 Bronchitis J40 Dementia G30.9; F02.B0 Alzheimer's disease onset: unspecified onset Dementia behavioral or psychological symptom: without behavioral, psychotic, or mood disturbance or anxiety Dementia severity: moderate Dementia type: Alzheimer's Hypotension I95.9 Aspiration into airway T17.191M
--- NOTE | 2023-08-11 09:40 | ECG_ITS ---
[facility] Test Date: 2023-08-11 Pat Name: Ketan Sandra Department: Room: EDIP Gender: Male Hat Model: : 1950 Requested By: Cedrick Caceres Order Number: [id number] Bogdan MD: Lobo Nguyen M.D. Measurements Intervals [place] Rate: 85 P: 52 [place]: 192 QRS: -74 QRSD: 123 T: 59 QT: 387 QTc: 462 Interpretive Statements SINUS RHYTHM WITH FREQUENT VENTRICULAR PREMATURE COMPLEXES LEFT ANTERIOR FASCICULAR BLOCK [QRS AXIS <= -45, QR IN I, RS IN II] ANTEROSEPTAL MYOCARDIAL INFARCTION , OF INDETERMINATE AGE [40+ ms Q WAVE IN V1-V4] Compared to ECG 08/11/2023 04:12:21 Incomplete right bundle-branch block no longer present Myocardial infarct finding still present Electronically Signed On 08-11-2023 16:29:33 GOAL UMPIRE by Lobo Nguyen M.D. [id number] f
[2023-08-11 10:37] LABS: Troponin(5th) Baseline 227 ng/L (0-15)
[2023-08-11] MEDS: lamoTRIgine 25 mg Tablet 50 MG PO ×2 (10:41→23:50)
[2023-08-11] MEDS: valproic acid inj 1,000 MG in sodium chloride 0.9% 50 ML 55 MG IV ×2 (10:42→23:50)
[2023-08-11] MEDS: LORazepam 2 mg/mL INJ 10 mL MDV IVP (10:43)
--- NOTE | 2023-08-11 11:58 | ECG_ITS ---
[facility] Test Date: 2023-08-11 Pat Name: Ketan Sandra Department: Room: EDIP Gender: Male Patch Driller: : 1950 Requested By: Cedrick Caceres Order Number: [id number] Bogdan MD: Lobo Nguyen M.D. Measurements Intervals [place] Rate: 77 P: 54 [place]: 191 QRS: -70 QRSD: 129 T: 61 QT: 399 QTc: 452 Interpretive Statements SINUS RHYTHM WITH FREQUENT VENTRICULAR PREMATURE COMPLEXES LEFT ANTERIOR FASCICULAR BLOCK [QRS AXIS <= -45, QR IN I, RS IN II] SEPTAL MYOCARDIAL INFARCTION , OF INDETERMINATE AGE [40+ ms Q WAVE IN V1/V2] Compared to ECG 08/11/2023 09:55:52 No significant changes Electronically Signed On 08-11-2023 16:31:36 TABULATING MACHINE MECHANIC by Lobo Nguyen M.D. [email or web address] [email or web address].hCentive/store/[id number] f
--- NOTE | 2023-08-11 15:21 | PC.NURSE ---
pt's current b/p 87/50, pt has been hypotensive and trending down. this nurse informed Dr. Caceres of pt status and vitals @[phone].
--- NOTE | 2023-08-11 15:40 | ECG_ITS ---
[facility] Test Date: 2023-08-11 Pat Name: Ketan Sandra Department: Room: EDIP Gender: Male Sap Fico Architect: : 1950 Requested By: Cedrick Caceres Order Number: [id number] Bodgan MD: Lobo Nguyen M.D. Measurements Intervals [place] Rate: 78 P: 48 [place]: 188 QRS: -74 QRSD: 126 T: 83 QT: 399 QTc: 455 Interpretive Statements SINUS RHYTHM WITH FREQUENT VENTRICULAR PREMATURE COMPLEXES LEFT ANTERIOR FASCICULAR BLOCK [QRS AXIS <= -45, QR IN I, RS IN II] SEPTAL MYOCARDIAL INFARCTION , OF INDETERMINATE AGE [40+ ms Q WAVE IN V1/V2] Compared to ECG 08/11/2023 11:58:38 No significant changes Electronically Signed On 08-11-2023 16:32:26 ELECTROMECHANICAL EQUIPMENT TESTER by Lobo Nguyen M.D. [id number] val
[2023-08-11] MEDS: lactated ringers 1,000 ML 999 ML IV (16:05)
--- NOTE | 2023-08-11 17:12 | PC.NURSE ---
LR Maintenance fluids administration delayed d/t bolus still infusing at this time @1700
--- NOTE | 2023-08-11 17:43 | PC.NURSE ---
report called to SURINDER Morrison in [facility], no further questions at this time.
[2023-08-11] MEDS: lactated ringers 1,000 ML 120 ML IV (18:50)
[2023-08-12] VITALS (9 sets, daily range): BP systolic 88–136; BP diastolic 53–79; PULSE 71–84; RESP 13–20; TEMP 36.7–37.1; O2SAT 90–98
[2023-08-12 04:07] LABS: Basophils # 0.1 10^3/uL (0.0-0.1); Basophils % 0.7 %; Eosinophils # 0.4 10^3/uL (0.0-0.8); Eosinophils % 4.9 %; Lymphocytes # 2.6 10^3/uL (0.8-4.8); Lymphocytes % 36.7 %; Mean Corpuscular HGB Conc 33.7 g/dL (30-55); Mean Corpuscular Hemoglobin 32.7 pg (27-33); Mean Corpuscular Volume 97.1 fl (82-101); Mean Platelet Volume 9.9 fL (7.4-10.4); Monocytes # 0.6 10^3/uL (0.2-0.9); Monocytes % 8.6 %; Neutrophils # 3.45 10^3/uL (1.8-7.7); Neutrophils % 48.7 %; Nucleated Red Blood Cells % 0 %; Platelet Count 273 10^3/cmm (157-399); Red Blood Count 4.43 10^6/uL (3.85-5.65); Red Cell Distribution Width 13.3 % (12.1-15.1); White Blood Count 7.09 10^3/uL (3.29-11.43)
[2023-08-12] MEDS: lactated ringers 1,000 ML 120 ML IV (04:29)
[2023-08-12 04:30] LABS: Alanine Aminotransferase 11 U/L (0-41); Albumin Level 3.1 g/dL (3.5-5.2); Alkaline Phosphatase 77 U/L (40-130); Anion Gap 14.9 (5-19); Aspartate Amino Transferase 24 U/L (0-40); Blood Urea Nitrogen 20 mg/dL (8-23); Calcium 8.9 mg/dL (8.5-10.5); Carbon Dioxide 27 mmol/L (22-29); Chloride 106 mmol/L (98-107); Globulin 3.2 g/dL (1.3-4.6); Glomerular Filtration Rate 59.9 mL/min (90-130); Glucose 83 mg/dL (65-115); Osmolality Calculated 300 mOsm/kg (285-295); Potassium 3.9 mmol/L (3.5-5.1); Sodium 144 mmol/L (136-145); Total Bilirubin 0.5 mg/dL (0.15-1.2); Total Protein 6.3 g/dL (6.6-8.7)
--- NOTE | 2023-08-12 07:56 | USCV_ITS ---
Boaz Ketan Age: 72 Gender: M : 1950 Exam Date: 08/12/2023 08:41 Ordering Phys: Cristopher Sampson MD Technologist: Adrian Escalante Exam Location: [facility] [place] Indication: elevated trop BP: 104 / 53 HR: 74 Rhythm: Sinus Technical Quality: MEASUREMENTS (Male / Female) Normal Values 2D ECHO LV Diastolic Diameter PLAX 3.7 cm 4.2 - 5.9 / 3.9 - 5.3 cm LV Systolic Diameter PLAX 2.9 cm IVS Diastolic Thickness 1.3 cm 0.6 - 1.0 / 0.6 - 0.9 cm IVS Systolic Thickness 1.7 cm LVPW Diastolic Thickness 1.2 cm 0.6 - 1.0 / 0.6 - 0.9 cm LVPW Systolic Thickness 1.4 cm LVOT Diameter 2.1 cm LV Ejection Fraction 2D Teich 51.9 % LV Ejection Fraction MOD 2C 71.1 % LV Ejection Fraction 2C AL 70.4 % LA Diameter 3.6 cm IVC Diameter 1.5 cm M-MODE Aortic Annulus Diameter 3.9 cm LA Ao Ratio MM 0.9 MV E Point Septal Separation 0.9 cm DOPPLER AV Peak Velocity 120.0 cm/s LVOT Peak Velocity 81.0 cm/s AV Area Cont Eq vti 2.8 cm squared AV Area Cont Eq pk 2.3 cm squared MV Area PHT 3.3 cm squared Mitral E to A Ratio 0.6 MV E' Velocity 25.5 cm/s Mitral E to MV E' Ratio 5.6 Mitral E to LV E' Lateral Ratio 4.7 Mitral E to LV E' Septal Ratio 6.9 TR Peak Velocity 137.7 cm/s TR Peak Gradient 7.6 mmHg TV Peak E Velocity 98.0 cm/s Right Atrial Pressure 3.0 mmHg Pulmonary Artery Systolic Pressu 10.6 mmHg RV Acceleration Time 0.1 s FINDINGS Left Ventricle Left ventricle is normal size. LV systolic function is mildly reduced with EF of 40-45%. Mild global hypokinesis. Moderate apical hypokinesis. Grade 1 diastolic dysfunction Right Ventricle Normal size and function Right Atrium Normal in size Left Atrium Normal in size Mitral Valve Structurally normal mitral valve. Mild mitral regurgitation Aortic Valve Structurally normal aortic valve. No significant stenosis. Tricuspid Valve Mild tricuspid regurgitation. Insufficient TR jet to calculate RVSP Pulmonic Valve Not well visualized Pericardium Normal Aorta Normal in size IVC Normal in size CONCLUSIONS LV systolic function is mildly reduced with EF of 40-45% Grade 1 diastolic dysfunction Mild mitral regurgitation Mild tricuspid regurgitation No comparison studies are available. Ronald Byrd MD (Electronically Signed) Final Date: 12 August 2023 10:34 S
[2023-08-12] MEDS: sodium chloride 1 gm Tablet PO (08:18)
[2023-08-12] MEDS: levothyroxine 50 mcg Tablet PO (08:18)
--- NOTE | 2023-08-12 10:39 | PC.CHAP ---
Pastoral Care Encounter/Spiritual Assessment Type of Contact [x] Declined motorcycle builder visit [] Patient/Family/Request visit [] Outpatient visit [] Follow-up visit [] Physician referral [] Code/Alert [x] Routine visit [] Staff referral [] Actively dying [] Patient sleeping [] Family support [] [] Out of room [] Palliative care [] [] Receiving care in room [] Pre-surgical visit [] Trauma [] Long length of stay [] ICU visit [] Other: Relational/Emotional Strength [] Patient feels connected with others/family/visitors/staff [] Distress [] Loneliness/isolation [] Abandonment Spirituality of Patient [] Person of Camelia [] Attends Anabaptist of their Camelia [] Believes in Prayer [] Reads Bible or Jew materials [] There are Spiritual issues to be addressed Manager Fine Dining Interventions [] Prayer [] Active listening [] Non-anxious presence [] Spiritual/emotional support [] Crisis/trauma care [] Spiritual counseling [] Bereavement support [] Provided bereavement packet [] Provided Bible/devotional materials [] Provided toy/stuffed animal, coloring book to patient or family member [] Provided Communion [] Anointing/[place] [] Salvation [] Completed spiritual assessment [] Other: Impact on Illness or Injury [] Angry [] Fearful [] Anxious [] Often cries [] Exhaustion [] Unable to work [] Unable to attend jehovah's witness [] Unable to walk/stand [] Unable to read [] Unable to drive [] Unable to eat/drink [] Unable to sleep [] Unable to be with family [] Patient intubated [] Other: Summary Time spent with patient
--- NOTE | 2023-08-12 10:52 | P.PN_ITS ---
Subjective 2 Subjective: Patient is not complaining active chest pain but as per the patient has been short of breath and it will improve with Z-Yakov I will go ahead and request echo and stress test for tomorrow Still weak however back to his baseline as per the He is eating breakfast on his own Still struggling work on difficulty which is not a new finding as per the Vitals/I&O/Wt Last Vital Signs Temp 98.5 F 08/12/23 08:00 Pulse 74 08/12/23 08:00 Resp 18 08/12/23 08:00 BP 104/53 08/12/23 08:00 Pulse Ox 98 08/12/23 08:00 O2 Del Method Room Air 08/12/23 08:00 O2 Flow Rate 4 08/11/23 06:46 08/11/23 08/12/23 08/12/23 22:59 06:59 14:59 Intake Total 1060 / 1120 480 / 480 Balance 1060 / 1120 480 / 480 Weight last 48 hrs Weight 68.946 kg Weight 65.828 kg Weight 86.183 kg Physical Exam 2 Narrative: Patient is responding to questions appropriately Eating breakfast on his own I do not see any sign of focal deficit Dehydrated S1, S2 Currently on room air GCS 15 Hypoxia noted while he was eating Data 08/12/23 03:56 08/12/23 03:56 A&P Assessment and plan (1) Depression: (2) Elevated troponin: (3) Non-ST elevation CO (NSTEMI): (4) Myopathy: (5) Dementia: Qualifiers: Alzheimer's disease onset: unspecified onset Dementia behavioral or psychological symptom: without behavioral, psychotic, or mood disturbance or anxiety Dementia severity: moderate Dementia type: Alzheimer's Qualified Code(s): G30.9 - Alzheimer's disease, unspecified; F02.B0 - Dementia in other diseases classified elsewhere, moderate, without behavioral disturbance, psychotic disturbance, mood disturbance, and anxiety (6) Frontal lobe epilepsy: (7) Secondarily generalized seizures: (8) Seizure: (9) Hypoxia: (10) Bronchitis: Plan Significant troponin elevation I will keep patient on ACS protocol Will request echo and stress test tomorrow Will request PT evaluation PT evaluation Patient is not aspirating while eating during my evaluation No active sign of chest pain Full code Came from home, lives with his History of epilepsy, history of dementia word-finding difficulty Attestations 2 Medical Necessity Statement*: Possible discharge by tomorrow Diagnoses Depression F32.A Elevated troponin R79.89 Non-ST elevation CO (NSTEMI) I21.4 Myopathy G72.9 Dementia G30.9; F02.B0 Alzheimer's disease onset: unspecified onset Dementia behavioral or psychological symptom: without behavioral, psychotic, or mood disturbance or anxiety Dementia severity: moderate Dementia type: Alzheimer's Frontal lobe epilepsy G40.802 Secondarily generalized seizures Seizure R56.9 Hypoxia R09.02 Bronchitis J40
[2023-08-12] MEDS: enoxaparin 30 mg/0.3 mL Syringe SUBCUT (11:17)
[2023-08-12] MEDS: clopidogrel 300 mg Tablet PO (11:17)
[2023-08-12] MEDS: aspirin 325 mg EC Tablet PO (11:17)
[2023-08-12] MEDS: lamoTRIgine 25 mg Tablet 50 MG PO ×2 (11:17→22:13)
[2023-08-12] MEDS: valproic acid inj 1,000 MG in sodium chloride 0.9% 50 ML 55 MG IV ×2 (12:21→22:13)
[2023-08-12] MEDS: ropinirole 1 mg Tablet PO (12:21)
[2023-08-12 13:32] LABS: Troponin(5th) Baseline 65 ng/L (0-15)
[2023-08-12 16:08] LABS: Troponin 5 2HR 63.91 ng/L (0-15); Troponin 5 2HR Delta -1.09 ABS# (0-10)
--- NOTE | 2023-08-12 16:41 | P.CONIM_ITS ---
Providers/Reason For Consult 2 Consulting Physician/Specialty*: Ronald Byrd MD/ Cardiology Reason for Consult*: NSTEMI Requesting Physician: Dr Sampson Attending Physician: Cristopher Sampson MD History of Present Illness History of Present Illness Ketan Sandra is a 72 year old male with past medical history of dementia who presented to hospital with seizures. However per family, he was having on and off chest discomfort and shortness of breath for last 1 week. He was found to have significantly elevated troponins with baseline of 55 and trended up to 262 at 6 hours. EKG showed sinus rhythm with a right ventricular conduction delay and prior septal infarct. ECHO shows moderately reduced LV systolic function Review of Systems 2 Narrative: Patient has dementia but denies chest pain. Rest of the review of systems not reliable. Medications/Allergies Home Medications Medication Instructions Recorded Confirmed Last Taken Type acetaminophen 650 mg 650 mg PO Q12H PRN Pain 08/02/19 08/11/23 Unknown History tablet,extended release (Tylenol 8 Hour) cholecalciferol (vitamin D3) 50 2,000 unit PO DAILY 08/02/19 08/11/23 Unknown History mcg (2,000 unit) tablet (Vitamin D3) levothyroxine 50 mcg capsule 50 mcg PO QDAY 08/02/19 08/11/23 Unknown History magnesium 250 mg tablet 250 mg PO DAILY 08/02/19 08/11/23 Unknown History omega-3 fatty acids 1,000 mg 1,000 mg PO DAILY 08/02/19 08/11/23 Unknown History capsule vitamin E (dl, acetate) 180 mg 400 unit PO QDAY 08/02/19 08/11/23 Unknown History (400 unit) capsule ondansetron 4 mg disintegrating 4 mg PO Q8H PRN Abdominal 07/03/21 08/11/23 07/03/21 08:00 History tablet Discomfort guaifenesin 600 mg tablet, 600 mg PO BID PRN Congestion 07/08/22 08/11/23 Unknown History extended release 12 hr (Mucinex) latanoprost 0.005 % eye drops 1 drp ophthalmic (eye) BEDTIME 07/08/22 08/11/23 Unknown History ropinirole 1 mg tablet See Rx Instructions .Route 04/20/23 08/11/23 Unknown Rx .COMPLEX #300 tabs triamterene 37.5 1 ea PO DAILY 04/20/23 08/11/23 Unknown History mg-hydrochlorothiazide 25 mg tablet mirabegron 25 mg tablet,extended 25 mg PO DAILY 07/09/23 08/11/23 Unknown History release 24 hr memantine 10 mg tablet 10 mg PO BID 08/11/23 08/11/23 Unknown History potassium citrate 99 mg capsule 99 mg PO DAILY 08/11/23 08/11/23 Unknown History sodium chloride 1,000 mg soluble 1,000 mg PO DAILY 08/11/23 08/11/23 Unknown History tablet zinc acetate 50 mg (zinc) capsule 50 mg PO DAILY 08/11/23 08/11/23 Unknown History amoxicillin 875 mg-potassium 1 tab PO BID #10 tabs 08/13/23 Unknown Rx clavulanate 125 mg tablet aspirin 81 mg tablet,delayed 81 mg PO DAILY #60 tabs 08/13/23 Unknown Rx release cyanocobalamin (vitamin B-12) 1,000 mcg PO DAILY #90 tabs 08/13/23 Unknown Rx 1,000 mcg tablet (Vitamin B-12) divalproex 250 mg tablet,delayed 250 mg PO BID #60 tabs 08/13/23 Unknown Rx release divalproex 500 mg tablet,delayed 500 mg PO BID #180 tabs 08/13/23 Unknown Rx release (Depakote) lamotrigine 100 mg tablet 50 mg (1/2 x 100 mg) PO BID #60 08/13/23 Unknown Rx (Lamictal) tabs Allergies Allergy/AdvReac Type Severity Reaction Status Date / Time aloe vera AdvReac itching/aggie Verified 08/10/23 22:08 h metronidazole [From Flagyl] AdvReac seizure Verified 08/10/23 22:08 phenytoin [From Dilantin] AdvReac rash Verified 08/10/23 22:08 Current Medications Generic Name Dose Route Start Last Admin Trade Name Freq PRN Reason Stop Dose Admin Valproic Acid 1,000 mg/ Sodium 60 mls @ 55 mls/hr 08/11/23 23:00 08/12/23 14:17 Chloride IV Infused Q12H DONNELL Infusion Lamotrigine 50 mg 08/11/23 23:00 08/12/23 11:17 Lamotrigine 25 Mg Tablet PO 50 mg Q12H DONNELL Administration Levothyroxine Sodium 50 mcg 08/12/23 09:00 08/12/23 08:18 Levothyroxine 50 Mcg Tablet PO 50 mcg DAILY DONNELL Administration Non-Formulary Medication 25 mg 08/12/23 09:00 08/12/23 08:13 Mirabegron PO Not Given DAILY DONNELL Ropinirole HCl 1 mg 08/12/23 14:00 08/12/23 12:21 Ropinirole 1 Mg Tablet PO 1 mg 1400 DONNELL Administration PFSH Acute 2 PFSH: Medical History Coronary artery disease Aspiration into airway Hypotension Bronchitis Elevated troponin Post-ictal state Hypoxia Dementia Non-ST elevation CO (NSTEMI) Seizure Myopathy Depression Secondarily generalized seizures Concussion Pneumonia Seizure Chronic lower back pain Alzheimer disease Restless legs syndrome Peripheral neuropathy Frontal lobe epilepsy Surgical History S/P insertion of spinal cord stimulator Family History Other Diabetes Hypertension Stroke Denies family history of CAD (coronary artery disease) Social History Smoking and tobacco/nicotine status: former use of tobacco/nicotine Alcohol intake: never Substance/Drug Use: never Vitals/I&O/Wt Last Vital Signs Temp 98.7 F 08/12/23 16:00 Pulse 75 08/12/23 16:00 Resp 20 H 08/12/23 16:00 BP 88/64 08/12/23 16:00 Pulse Ox 91 08/12/23 16:00 O2 Del Method Room Air 08/12/23 16:00 O2 Flow Rate 4 08/11/23 06:46 08/12/23 08/12/23 08/12/23 06:59 14:59 22:59 Intake Total 1060 / 1120 780 / 780 Balance 1060 / 1120 780 / 780 Weight last 48 hrs Weight 152 lb Weight 145 lb 2 oz Weight 190 lb Physical Exam 2 Narrative: GENERAL: Patient is alert NECK: No jugular vein distension. [] HEENT: No cyanosis. No icterus. No pallor. [] HEART: Regular S1 and S2. No murmur, rub or gallop. [] LUNGS: Clear to auscultate bilaterally. [] CENTRAL NERVOUS SYSTEM: Grossly nonfocal. [] EXTREMITIES: Lower extremities with 1+ edema bilaterally. Data 08/12/23 03:56 08/13/23 03:19 A&P Assessment and plan (1) Chest pain: (2) LV dysfunction: Plan Patient's presentation is consistent with non-ST elevation CO. We will proceed with coronary angiogram with possible percutaneous coronary intervention. He has significant troponin elevation along with LV dysfunction. N.p.o. after midnight Continue aspirin and anticoagulation. Thank you for involving us with care of this patient. We will continue to follow. Please call with questions. Consult Attestations 2 Medical Necessity Statement: Care expected to cross 2 midnights. Coding Level of Care Code Acute Code for Alex Eliceo Diagnoses Chest pain R07.9 LV dysfunction I51.9
[2023-08-12 20:43] LABS: Troponin 5 6HR 54.49 ng/L (0-15)
[2023-08-13] VITALS: BP 132/93; PULSE 74; RESP 18; TEMP 37.1; O2SAT 94
[2023-08-13 03:51] LABS: Anion Gap 14.6 (5-19); Blood Urea Nitrogen 22 mg/dL (8-23); Calcium 8.8 mg/dL (8.5-10.5); Carbon Dioxide 25 mmol/L (22-29); Chloride 104 mmol/L (98-107); Glomerular Filtration Rate 59.9 mL/min (90-130); Glucose 89 mg/dL (65-115); Osmolality Calculated 293 mOsm/kg (285-295); Potassium 3.6 mmol/L (3.5-5.1); Sodium 140 mmol/L (136-145)
[2023-08-13 04:00] VITALS: BP 126/78; PULSE 77; RESP 14; TEMP 36.7; O2SAT 93
[2023-08-13 05:50] VITALS: PULSE 70
--- NOTE | 2023-08-13 06:04 | XACV_ITS ---
Exam Room: [facility] Ht: 173 cm Wt: 68 kg BSA: 1.82 m2 Gender: Male : 1950 Any Known Allergies: Other Exam Priority: Routine Procedure(s): Procedure Description: Diagnostic procedure Procedure Description: Coronary Angiography Diagnostic Cath Status: Elective Diagnostic Findings * Left Main has no significant disease. * Circumflex has mild luminal irregularities. * Mid Left Anterior Descending: mild to moderate 40% stenosis, XIOMARA: 3 flow. * Mid Right Coronary Artery: mild 30% stenosis, XIOMARA: 3 flow. * Coronary angiography shows right dominance. Conclusions 1. Non-obstructive coronary artery disease. Recommendations * Aggressive risk factor modification. * Outpatient cardiology follow up in 2-4 weeks. Interventional RX Recommendation: medical therapy and/or counseling Diagnostic RX Recommendation: medical therapy and/or counseling Anticoagulation: Heparin Pressures Phase:Rest AO : 129 / 75 ( 96 ) @ 7:41:00 AM 128 / 74 ( 95 ) @ 7:41:00 AM LV : 139 / -2 / 20 @ 7:41:00 AM 137 / -1 / 21 @ 7:41:00 AM Valves Phase:DefaultPhase AV : 8.0 @ 7:50:31 AM AV Mean Gradient: 11.0 @ 7:50:31 AM Clinical Evaluation EBL: 5mL-10mL Procedural Details Procedure Consent Obtained. Admit Source: In Patient. Pre-Procedure Time Out. Identified patient by full name and date of as verbalized by the patient/guarantor. Does the consent match the physician's order: Yes. Accurate & Complete Informed Consent: Yes. Inpatient/Outpatient History & Physical on Chart: Yes. If H&P is completed, is and addenduem needed: No; If yes, is the addendum complete: N/A. Visualize and Verify Site with Patient/Guarantor: N/A. Relevant Radiology Images available: Yes. Pre-op teaching completed and patient verbalized understanding. The risks, benefits, and alternatives of sedation and/or procedure were discussed by physician. The patient agrees to continue. Procedure started. [facility] Clinical Fraility Score: 6:Moderately Frail. Field Operations Coordinator Indications: ACS > 24 hours. Chest Pain Symptom Assessment: Atypical Angina. Correct patient, site and procedure confirmed by cath team. Current diagnosis: NSTEMI. PERRLA. Strong, equal hand tenter bilaterally. Lungs clear x 5 lobes. IV Site on Arrival: 20 gauge in the right anticubital. IV Fluids: 0.9% NaCl at 75ml/hr. 25 mL infused prior to section laborer. Pre Procedural Pulses: bilateral radial was 3+. Pre Procedural Pulses: bilateral dorsalis pedis was 2+. Pre Procedural Pulses: bilateral posterior tibial was 2+. Oxygen started at 2liters/min via nasal canula. right radial was prepped with chloroprep then draped in the usual sterile fashion. right groin was prepped with chloroprep then draped in the usual sterile fashion. Physician notified. Baseline sample Acquired. HR: 70 BPM. Physician arrived. Correct Patient: Yes; Correct Procedure: Yes; Correct Site: Yes; Correct Patient Position: Yes; Correct Supplies: Yes; Dried Flammable Prep: Yes; Blood Products Available: N/A. Lidocaine 1% infiltrated to the right radial. A 6 slovak TIG catheter in over wire. Multiple views taken of left coronary artery. Physician scrubbed in. Immediate Pre-Procedure Time Out. Catheter redirected to the RCA. Catheter removed over the exchange wire. A 5 slovak JR4 catheter in over wire. Multiple views taken of right coronary artery. EDP Sample taken: LV 139/-3,20; HR: 68 BPM; SpO2: 92%. Pullback taken: LV 137/-2,21; AO 129/75(96); Mean: 11mmHg, Peak to Peak: 8mmHg, SEP: 18sec/min; HR: 67 BPM; SpO2: 92%. Catheter removed over the exchange wire. Arterial access obtained. A TR Band was successful obtaining hemostatsis at the Right Radial artery insertion site. Post Procedure: Pulses reassessed and unchanged. PERRLA. Strong, equal hand tenter bilaterally. No VTE prophylaxis required. Medication's Wasted: Lidocaine 1% = 2 mL. Medication's Wasted: Nitro = 49.8 mg. Medication's Wasted: Heparin = 1000 unit. Medication's Wasted: Other = Fentanyl 75mcg, Versed 1 mg. Total IV fluids: 23 mL. Post-op diagnosis: Non obstructive CAD. Complications: None. Estimated blood loss: 5mL-10mL. Responsiveness - Normal response to verbal stimuli; alert and oriented, PERRLA. Airway - Unaffected, no intervention required; spontaneous ventilation. Circulation: W/N/L, pulses unchanged. Nausea/Vomiting: No. Procedure completed. Patient transferred by bed to 1st floor. Vital chart was stopped. Access Site Site: Right Radial artery Sheath Size: 6 Fr Hemostasis Method: TR Band Hemostasis Success: Successful Procedure Medications Start: 7:26 AM Stop: 7:26 AM Medication: Versed Amount: 1 mg Route: I.V. Start: 7:26 AM Stop: 7:26 AM Medication: Fentanyl Amount: 25 mcg Route: I.V. Start: 7:32 AM Stop: 7:32 AM Medication: Nitrogylcerin Amount: 200 mcg Route: I.A. Start: 7:33 AM Stop: 7:33 AM Medication: Heparin Amount: 5000 units Route: I.V. I, the attending physician, have reviewed and verified all procedure medications. Yes, all medications given per verbal order History/Risk Factors Hypertension: No Dyslipidemia: No Peripheral Arterial Disease (PAD): No Myocardial Infarction (GA): No Obesity: No Renal Disease: No Tobacco Use: Former Prior Interventions PCI: No CABG: No Valve Surgery: No Report Signatures Finalized by Ronald Byrd MD on 08/26/2023 12:39 PM
[2023-08-13] MEDS: diphenhydrAMINE 50 mg Capsule PO (06:29)
[2023-08-13] MEDS: sodium chloride 0.9% 1,000 ML 50 ML IV (06:29)
[2023-08-13] MEDS: aspirin 81 mg EC Tablet PO (06:30)
[2023-08-13] MEDS: clopidogrel 75 mg Tablet PO (06:30)
--- NOTE | 2023-08-13 07:26 | W.PM.OPSUD ---
Surgery/Procedure H&P Update DATE OF PROCEDURE: August 13, 2023 DATE H&P PERFORMED: 08/12/23 H&P UPDATE INFORMATION: I have reviewed H&P completed within last 30 days, I have examined patient prior to procedure and No changes to prior documentation PREOP DIAGNOSIS: NSTEMI PRIMARY INDICATION FOR PROCEDURE: NSTEMI PLANNED PROCEDURE: Left heart cath with possible percutaneous coronary intervention PATIENT REASSESSED PRIOR TO SEDATION, WITH NO CHANGE NOTED: Yes PHYSICAL EXAM: alert, oriented x 3, clear to auscultation bilaterally and regular rate & rhythm AIRWAY EVAL/ANESTHESIA PLAN: normal airway, ASA III, Local Anesthesia, Risks, benefits & alternatives of sedation and/or procedure discussed and Patient agrees to continue as planned ADDITIONAL INFORMATION: Moderate sedation
[2023-08-13 08:00] VITALS: BP 122/74; PULSE 62; RESP 16; TEMP 36.4; O2SAT 91
[2023-08-13] MEDS: levothyroxine 50 mcg Tablet PO (09:26)
--- NOTE | 2023-08-13 09:28 | PC.CHAP ---
Pastoral Care Encounter/Spiritual Assessment Type of Contact [] Declined skin former visit [] Patient/Family/Request visit [] Outpatient visit [] Follow-up visit [] Physician referral [] Code/Alert [x] Routine visit [] Staff referral [] Actively dying [] Patient sleeping [] Family support [] [] Out of room [] Palliative care [] [] Receiving care in room [] Pre-surgical visit [] Trauma [] Long length of stay [] ICU visit [] Other: Relational/Emotional Strength [x] Patient feels connected with others/family/visitors/staff [] Distress [] Loneliness/isolation [] Abandonment Spirituality of Patient [x] Person of Camelia [] Attends Faith of their Camelia [x] Believes in Prayer [] Reads Bible or Christianity materials [] There are Spiritual issues to be addressed Applied Research Director Interventions [x] Prayer [] Active listening [] Non-anxious presence [x] Spiritual/emotional support [] Crisis/trauma care [] Spiritual counseling [] Bereavement support [] Provided bereavement packet [] Provided Bible/devotional materials [] Provided toy/stuffed animal, coloring book to patient or family member [] Provided Communion [] Anointing/[place] [] Salvation [x] Completed spiritual assessment [] Other: Impact on Illness or Injury [] Angry [] Fearful [] Anxious [] Often cries [] Exhaustion [] Unable to work [] Unable to attend adventist [] Unable to walk/stand [] Unable to read [] Unable to drive [] Unable to eat/drink [] Unable to sleep [] Unable to be with family [] Patient intubated [] Other: Summary Time spent with patient 5 min
--- NOTE | 2023-08-13 10:28 | PM.DCS ---
Discharge Providers Date of Admission: 08/12/23 12:35 Date of Discharge: August 13, 2023 Attending Provider at Admission: Jung Quick MD Attending Provider at Discharge: Cristopher Sampson MD Diagnoses at Discharge Discharge Diagnosis (1) Depression: Status: Acute (2) Elevated troponin: Status: Acute (3) Non-ST elevation PA (NSTEMI): Status: Acute (4) Myopathy: Status: Acute (5) Dementia: Status: Acute Qualifiers: Alzheimer's disease onset: unspecified onset Dementia behavioral or psychological symptom: without behavioral, psychotic, or mood disturbance or anxiety Dementia severity: moderate Dementia type: Alzheimer's Qualified Code(s): G30.9 - Alzheimer's disease, unspecified; F02.B0 - Dementia in other diseases classified elsewhere, moderate, without behavioral disturbance, psychotic disturbance, mood disturbance, and anxiety (6) Frontal lobe epilepsy: Status: Acute (7) Secondarily generalized seizures: Status: Acute (8) Seizure: Status: Acute (9) Hypoxia: Status: Acute (10) Bronchitis: Status: Acute Reason for Visit Reason for Visit: post seizure Hospital Course Hospital Course 72-year-old male who presented after breakthrough seizure, no recurrence of seizure during hospitalization, troponin elevation was noted with hypokinesia of heart cardiology was consulted will patient has significant dementia wanted to go for angiogram, creatinine was normal, cardiac cath was unremarkable nonobstructive coronary disease, patient extremely weak as per the family patient has been declining in his functional/physical capabilities for last 2 weeks they already have outpatient physical therapy referral from Dr. Vallecillo, will try to arrange home health I have notified my immigration case worker. Right radial TR band in place without any active bleeding, patient will be able to go home on his home medications, patient lives with his , came from home, history of epilepsy and dementia with word finding difficulty. Patient is not showing such findings during my evaluation Physical Exam Narrative: Awake and alert Weak and lethargic otherwise no active signs of focal deficit GCS 15 S1, S2 Currently on room air Eating breakfast on his own with his hands Family is at the bedside Discharge Data Studies Completed and Pending Completed Studies During Hospitalization Category Date Time Status CT head wo con* [id number] Stat Cat Scan 08/10/23 22:08 Completed XR chest 1V portable [id number] Stat Exams 08/10/23 22:03 Completed CV. echo complete* [id number] Routine Ultrasound 08/12/23 07:56 Completed Pending at discharge Category Date Time Status MYSQL DATABASE ADMINISTRATOR request for service Routine Exams 08/13/23 06:04 Ordered Sestamibi Stress Test Request Routine Exams 08/13/23 06:00 Stop Req Radiology Impressions Chest X-Ray 08/10/23 22:03 IMPRESSION: Increased interstitial markings with peribronchial cuffing in the lung bases are nonspecific but can be seen the setting of bronchitis, pulmonary vascular congestion, viral infection and small-vessel airways disease. Head CT 08/10/23 22:08 IMPRESSION: 1. No acute intracranial abnormality. 2. Small-vessel ischemic disease. Laboratory Results WBC 7.09 10^3/uL (3.29-11.43) 08/12/23 03:56 RBC 4.43 10^6/uL (3.85-5.65) 08/12/23 03:56 Hgb 14.50 g/dL (11.27-16.99) 08/12/23 03:56 Hct 43.0 % (37-53) 08/12/23 03:56 MCV 97.1 fl (82-101) 08/12/23 03:56 MCH 32.7 pg (27-33) 08/12/23 03:56 MCHC 33.7 g/dL (30-55) 08/12/23 03:56 RDW 13.3 % (12.1-15.1) 08/12/23 03:56 Plt Count 273 10^3/cmm (157-399) 08/12/23 03:56 MPV 9.9 fL (7.4-10.4) 08/12/23 03:56 Neut % (Auto) 48.7 % 08/12/23 03:56 Lymph % (Auto) 36.7 % 08/12/23 03:56 [place] % (Auto) 8.6 % 08/12/23 03:56 Eos % (Auto) 4.9 % 08/12/23 03:56 Baso % (Auto) 0.7 % 08/12/23 03:56 Neut # (Auto) 3.45 10^3/uL (1.8-7.7) 08/12/23 03:56 Lymph # (Auto) 2.6 10^3/uL (0.8-4.8) 08/12/23 03:56 [place] # (Auto) 0.6 10^3/uL (0.2-0.9) 08/12/23 03:56 Eos # (Auto) 0.4 10^3/uL (0.0-0.8) 08/12/23 03:56 Baso # (Auto) 0.1 10^3/uL (0.0-0.1) 08/12/23 03:56 Nucleated RBC % (auto) 0 % 08/12/23 03:56 Nucleated RBCs # 0.0 /100WBC 08/12/23 03:56 Sodium 140 mmol/L (136-145) 08/13/23 03:19 Potassium 3.6 mmol/L (3.5-5.1) 08/13/23 03:19 Chloride 104 mmol/L (98-107) 08/13/23 03:19 Carbon Dioxide 25 mmol/L (22-29) 08/13/23 03:19 Anion Gap 14.6 (5-19) 08/13/23 03:19 BUN 22 mg/dL (8-23) 08/13/23 03:19 Creatinine 1.2 mg/dL (0.7-1.2) 08/13/23 03:19 GFR Calculation 59.9 mL/min (90-130) L 08/13/23 03:19 Glucose 89 mg/dL (65-115) 08/13/23 03:19 Calculated Osmolality 293 mOsm/kg (285-295) 08/13/23 03:19 Calcium 8.8 mg/dL (8.5-10.5) 08/13/23 03:19 Magnesium 2.0 mg/dL (1.7-2.3) 08/10/23 22:10 Total Bilirubin 0.5 mg/dL (0.15-1.2) 08/12/23 03:56 AST 24 U/L (0-40) 08/12/23 03:56 ALT 11 U/L (0-41) 08/12/23 03:56 Alkaline Phosphatase 77 U/L (40-130) 08/12/23 03:56 Troponin T Baseline 65 ng/L (0-15) H 08/12/23 13:00 Troponin T 120 Minute 63.91 ng/L (0-15) H 08/12/23 15:14 Delta Troponin T -1.09 ABS# (0-10) L 08/12/23 15:14 Troponin T Hi Sens 6Hr 54.49 ng/L (0-15) H 08/12/23 19:53 Troponin T Hi Sens 6Hr Delta -10.51 ng/L (0-12) L 08/12/23 19:53 Total Protein 6.3 g/dL (6.6-8.7) L 08/12/23 03:56 Albumin 3.1 g/dL (3.5-5.2) L 08/12/23 03:56 Globulin 3.2 g/dL (1.3-4.6) 08/12/23 03:56 Urine Color Straw (Yellow) 08/10/23 23:13 Urine Appearance Hazy (CLEAR) A 08/10/23 23:13 Urine pH 8 (5-7) H 08/10/23 23:13 Ur Specific [place] 1.010 (1.005-1.030) 08/10/23 23:13 Urine Protein Neg (Negative) 08/10/23 23:13 Urine Glucose (UA) Norm (Normal) 08/10/23 23:13 Urine Ketones Negative (Negative) 08/10/23 23:13 Urine Blood Neg (Negative) 08/10/23 23:13 Urine Nitrate Negative (Negative) 08/10/23 23:13 Urine Bilirubin Neg (Negative) 08/10/23 23:13 Prot Sulfosalicylic Acd Negative (Negative) 08/10/23 23:13 Urine Urobilinogen Neg mg/dL (Negative) 08/10/23 23:13 Ur Leukocyte Esterase Negative (Negative) 08/10/23 23:13 Urine RBC None /hpf (0-2) 08/10/23 23:13 Urine WBC None /hpf (0-5) 08/10/23 23:13 Ur Squamous Epith Cells None /hpf (0-5) 08/10/23 23:13 Amorphous Sediment 3+ /hpf 08/10/23 23:13 Urine Bacteria 1+ /hpf (NONE) H 08/10/23 23:13 Valproic Acid 33.6 ug/mL (50-100) L 08/10/23 22:10 Vitals Last Vital Signs Temp 97.6 F 08/13/23 08:00 Pulse 62 08/13/23 08:00 Resp 16 08/13/23 08:00 BP 122/74 08/13/23 08:00 Pulse Ox 91 08/13/23 08:00 O2 Del Method Room Air 08/13/23 08:00 O2 Flow Rate 4 08/11/23 06:46 Discharge Plan Discharge Patient Disposition: Home Condition: Stable Prescriptions: New amoxicillin-pot clavulanate 875-125 mg tablet 1 tab PO BID Qty: 10 0RF aspirin 81 mg tablet,delayed release (DR/EC) 81 mg PO DAILY Qty: 60 2RF Continued acetaminophen [Tylenol 8 Hour] 650 mg tablet extended release 650 mg PO Q12H PRN (Reason: Pain) magnesium 250 mg tablet 250 mg PO DAILY levothyroxine 50 mcg capsule 50 mcg PO QDAY cholecalciferol (vitamin D3) [Vitamin D3] 2,000 unit tablet 2,000 unit PO DAILY omega-3 fatty acids 1,000 mg capsule 1,000 mg PO DAILY vitamin E (dl, acetate) 400 unit capsule 400 unit PO QDAY triamterene-hydrochlorothiazid 37.5-25 mg tablet 1 ea PO DAILY ropinirole 1 mg tablet See Rx Instructions .ROUTE .COMPLEX Qty: 300 3RF Dose Instruction: TAKE ONE TABLET BY MOUTH At Bedtime Rx Instructions: 2 at bedtime and 1 in the afternoon mirabegron 25 mg tablet extended release 24 hr 25 mg PO DAILY ondansetron 4 mg Tablet,Disintegrating 4 mg PO Q8H PRN (Reason: Abdominal Discomfort) zinc acetate 50 mg (zinc) Capsule 50 mg PO DAILY sodium chloride 1,000 mg Tablet,Soluble 1,000 mg PO DAILY potassium citrate 99 mg Capsule 99 mg PO DAILY memantine 10 mg tablet 10 mg PO BID Rx Instructions: TAKE ONE TABLET BY MOUTH TWICE DAILY Vitamin B-12 1,000 mcg Tablet 1,000 mcg PO DAILY Qty: 90 0RF Depakote 500 mg tablet,delayed release (DR/EC) 500 mg PO BID Qty: 180 3RF Lamictal 100 mg tablet 50 mg PO BID Qty: 60 3RF latanoprost 0.005 % Drops 1 drp OPHTHALMIC (EYE) BEDTIME guaifenesin [Mucinex] 600 mg tablet extended release 12hr 600 mg PO BID PRN (Reason: Congestion) Changed divalproex 250 mg tablet,delayed release (DR/EC) 250 mg PO BID Qty: 60 0RF Discontinued meclizine 25 mg tablet 25 mg PO QDAY PRN (Reason: Dizziness) Discharge Orders: Discharge Order (Routine); Ordered 08/13/23 Ordered By: Cristopher Sampson Referrals: [facility] PT [Other] - 08/18/23 1:00 pm Zahida Esposito FNP [Nurse Practitioner] - 08/26/23 1:00 pm Patient Instructions: Aspirin (By mouth) (Rex Extra Strength, Rex Aspirin Children's,..., Amoxicillin/Clavulanate Potassium (By mouth) (Augmentin, Augmentin..., Divalproex (By mouth) (Depakote, Depakote ER, Depakote Sprinkles), Coronary Angioplasty (DC), Opioid Safety, Post Angiogram Home Care Instructions, Post Heart Attack Stoplight Discharge Attestations Time Spent in Discharge Care*: greater than 30 min Quality Metrics Clinical Quality Measures [ No reported AMI, CVA or VTE this stay] Coding Level of Care Code Acute Code for [facility] Fwd Diagnoses Depression F32.A Elevated troponin R79.89 Non-ST elevation PA (NSTEMI) I21.4 Myopathy G72.9 Dementia G30.9; F02.B0 Alzheimer's disease onset: unspecified onset Dementia behavioral or psychological symptom: without behavioral, psychotic, or mood disturbance or anxiety Dementia severity: moderate Dementia type: Alzheimer's Frontal lobe epilepsy G40.802 Secondarily generalized seizures Seizure R56.9 Hypoxia R09.02 Bronchitis J40
[2023-08-13] MEDS: lamoTRIgine 25 mg Tablet 50 MG PO (11:27)
[2023-08-13] MEDS: valproic acid inj 1,000 MG in sodium chloride 0.9% 50 ML 55 MG IV (11:27)
--- NOTE | 2023-08-13 11:32 | P.PN_ITS ---
Subjective 2 Subjective: Patient overall doing well. Vitals/I&O/Wt Last Vital Signs Temp 97.6 F 08/13/23 08:00 Pulse 62 08/13/23 08:00 Resp 16 08/13/23 08:00 BP 122/74 08/13/23 08:00 Pulse Ox 91 08/13/23 08:00 O2 Del Method Room Air 08/13/23 08:00 O2 Flow Rate 4 08/11/23 06:46 08/12/23 08/13/23 08/13/23 22:59 06:59 14:59 Intake Total 2480 / 3260 60 / 3320 Balance 2480 / 3260 60 / 3320 Weight last 48 hrs Weight 151 lb 9.6 oz Weight 152 lb Weight 145 lb 2 oz Physical Exam 2 Narrative: GENERAL: Patient is alert NECK: No jugular vein distension. [] HEENT: No cyanosis. No icterus. No pallor. [] HEART: Regular S1 and S2. No murmur, rub or gallop. [] LUNGS: Clear to auscultate bilaterally. [] CENTRAL NERVOUS SYSTEM: Grossly nonfocal. [] EXTREMITIES: Lower extremities with 1+ edema bilaterally. Data 08/12/23 03:56 08/13/23 03:19 A&P Assessment and plan (1) Elevated troponin: (2) Hypotension: (3) Seizure: (4) Dementia: Qualifiers: Alzheimer's disease onset: unspecified onset Dementia behavioral or psychological symptom: without behavioral, psychotic, or mood disturbance or anxiety Dementia severity: moderate Dementia type: Alzheimer's Qualified Code(s): G30.9 - Alzheimer's disease, unspecified; F02.B0 - Dementia in other diseases classified elsewhere, moderate, without behavioral disturbance, psychotic disturbance, mood disturbance, and anxiety Plan Patient's coronary angiogram shows patent coronary arteries with mild to moderate CAD. Medical therapy. Continue aspirin and statin therapy. Thank you for involving us with care of this patient. Please call with questions. Attestations 2 Medical Necessity Statement*: Care expected to cross 2 midnights. Coding Level of Care Code Acute Code for [facility] Fwd Diagnoses Elevated troponin R79.89 Hypotension I95.9 Seizure R56.9 Dementia G30.9; F02.B0 Alzheimer's disease onset: unspecified onset Dementia behavioral or psychological symptom: without behavioral, psychotic, or mood disturbance or anxiety Dementia severity: moderate Dementia type: Alzheimer's
[2023-08-13 12:00] VITALS: BP 131/92; PULSE 62; RESP 20; TEMP 36.4; O2SAT 91
[2023-08-13 14:17] VITALS: BP 131/92; PULSE 62; RESP 20; TEMP 36.4; O2SAT 91
--- NOTE | 2023-08-13 15:24 | PC.NURSE ---
discharge instructions given and explained to spouse.she verb understanding of instructions.discharged via w/c to exit at this time.spouse to drive pt home
== END 2023-08-13 15:26 | disposition home or self-care (01) | DRG 101 ==
LOC: ER 08-11 01:44 → ER IP 08-11 02:21 → CSU 08-11 16:57
PROVIDERS: Family Medicine; Internal Medicine; Admitting Provider Internal Medicine; Emergency Provider Emergency Medicine; Visit Provider Internal Medicine
PROC: B2111ZZ Fluoroscopy of Multiple Coronary Arteries using Low Osmolar Contrast (ICD-10-PCS; principal; 2023-08-13 07:00)
DX: G40.409 Other generalized epilepsy and epileptic syndromes, not intractable, without status epilepticus (principal); G30.9 Alzheimer's disease, unspecified; F02.B0 Dementia in other diseases classified elsewhere, moderate, without behavioral disturbance, psychotic disturbance, mood disturbance, and anxiety; G89.29 Other chronic pain; M54.50 Low back pain, unspecified; G25.81 Restless legs syndrome; G62.9 Polyneuropathy, unspecified; Z87.891 Personal history of nicotine dependence; G43.909 Migraine, unspecified, not intractable, without status migrainosus; F32.A Depression, unspecified; H40.9 Unspecified glaucoma; J40 Bronchitis, not specified as acute or chronic; I25.10 Atherosclerotic heart disease of native coronary artery without angina pectoris; R09.02 Hypoxemia; G72.9 Myopathy, unspecified
CPT/HCPCS: 36415; 70450; 71045; 80048; 80053; 80164; 81001; 83735; 84484; 85025; 92523; 92610; 93005; 93306; 93458; 96365; 96366; 96372; 96375; 96376; 97110; 97161; 97530; 99152; 99153; 99291; C1769; C1887; C1894; G0378; J1644; J1650; J2060; J2250; J3010; J3490; J7030; J7120; Q0163; Q9967

== ENCOUNTER 2023-08-18 06:00 | Outpatient (RCR) | payer MEDICARE, OTHER, SELFPAY | END 2023-09-02 23:59 | disposition home or self-care (01) | LOC: TPT 06:00 | PROVIDERS: Visit Provider Specialist | DX: G72.9 Myopathy, unspecified (principal) | CPT/HCPCS: 97110; 97163 ==

== ENCOUNTER → 2023-08-26 12:50 | Outpatient (BNVA) | payer MEDICARE, OTHER, SELFPAY | PROVIDERS: PCP Nurse Practitioner Family; Visit Provider Nurse Practitioner Family | DX: I25.10 Atherosclerotic heart disease of native coronary artery without angina pectoris (principal); Z87.891 Personal history of nicotine dependence | CPT/HCPCS: 99213 ==

== ENCOUNTER 2023-09-03 06:00 | Outpatient (RCR) | payer MEDICARE, OTHER, SELFPAY | END 2023-10-03 23:59 | disposition home or self-care (01) | LOC: TPT 06:00 | PROVIDERS: PCP Nurse Practitioner Family; Visit Provider Specialist | DX: G72.9 Myopathy, unspecified (principal) | CPT/HCPCS: 97110; 97164 ==

== ENCOUNTER 2023-10-04 06:00 | Outpatient (RCR) | payer MEDICARE, OTHER, SELFPAY | END 2023-11-02 23:59 | disposition home or self-care (01) | LOC: TPT 06:00 | PROVIDERS: PCP Nurse Practitioner Family; Visit Provider Specialist | DX: G72.9 Myopathy, unspecified (principal) | CPT/HCPCS: 97110; 97116 ==

== ENCOUNTER 2023-11-02 15:01 | Inpatient (IN) | payer MEDICARE, SELFPAY ==
[2023-11-02] VITALS (49 sets, daily range): BP systolic 114–160; BP diastolic 76–106; PULSE 79–110; RESP 14–28; TEMP 36.6–36.7; O2SAT 78–100; BMI 21.4; BMI 21.2
--- NOTE | 2023-11-02 15:12 | ED_ITS ---
Documented by User: Louis Perales DO 11/05/23 19:21 HPI - Seizure 2 General: Chief Complaint: Seizure Stated Complaint: seizures Time Seen by Provider: 11/02/23 15:10 Source: patient and family Mode of arrival: EMS History of Present Illness: HPI Narrative: 72-year-old male with a history of seizu res presents emergency room after having a seizure earlier today. Patient is found member states he gets an aura a sexually aggressive for a day or 2 before he is a seizure and has prolonged postictal states. He is usually on valproic acid. He has not had another seizure since arrival here. He is able to answer some questions but difficult to arouse. complaint: seizure Onset (ago): minute(s) Description of Episode: tonic-clonic movement Witnessed: Yes - by Bystander Trauma: No Seizure History: Yes Associated symptoms: Deny chest pain, chills or fever(s) Review of Systems 2 Const: Denies: fever(s) or chills Card: Denies: chest pain Resp: Denies: dyspnea GI: Denies: abdominal pain : Denies: dysuria, urinary frequency or urinary urgency Musc: Denies: neck pain or back pain Skin/Breast: Denies: rash PFSH ED 2 PFSH: Medical History Hypothyroidism Dementia Coronary artery disease Aspiration into airway Hypotension Bronchitis Elevated troponin Post-ictal state Hypoxia Non-ST elevation AK (NSTEMI) Seizure Myopathy Depression Secondarily generalized seizures Concussion Pneumonia Seizure Chronic lower back pain Alzheimer disease Restless legs syndrome Peripheral neuropathy Frontal lobe epilepsy Surgical History S/P insertion of spinal cord stimulator Family History Other Diabetes Hypertension Stroke Denies family history of CAD (coronary artery disease) Social History Smoking and tobacco/nicotine status: former use of tobacco/nicotine Alcohol intake: never Substance/Drug Use: never Physical Exam 2 Const: COMMON NORMALS: no acute distress GENERAL APPEARANCE: cooperative and comfortable ORIENTATION/CONSCIOUSNESS: Yes awake, Yes oriented to person, Yes oriented to place and Yes oriented to time HENMT: COMMON NORMALS: normocephalic, atraumatic and hearing grossly normal bilaterally HEAD & SCALP: normocephalic and atraumatic Resp: COMMON NORMALS: normal respiratory effort, No retractions, No use of accessory muscles and clear to auscultation bilaterally AUSCULTATION: clear to auscultation bilaterally Cardio: COMMON NORMALS: regular rate, regular rhythm and No murmurs present (Cardio) RATE: regular rate RHYTHM: regular rhythm GI: COMMON NORMALS: Soft to palpation and No hepatosplenomegaly present A USCULTATION: Yes normoactive bowel sounds PALPATION: Yes Soft to palpation, No Tenderness to palpation present (GI), No Guarding due to palpation present (GI) and Yes No hepatosplenomegaly present Extremity: COMMON NORMALS: normal to inspection, capillary refill normal, no clubbing, cyanosis or edema, no calf tenderness and no pedal edema Neuro: SENSORIUM/ORIENTATION: Yes oriented to person, Yes oriented to place and Yes oriented to time Skin: COMMON NORMALS: no rashes or lesions noted GENERAL SKIN EXAM: no rashes or lesions noted Course 2 Vital Signs: Vital signs: Vital Signs Temperature 97.8 F 11/03/23 12:15 Pulse Rate 66 11/04/23 15:19 Respiratory Rate 16 11/03/23 13:45 Blood Pressure 120/70 11/03/23 13:45 Pulse Oximetry 98 11/03/23 13:45 Oxygen Delivery Me thod Room Air 11/03/23 13:45 Oxygen Flow Rate 2 11/03/23 04:30 MDM - Seizure MDM Narrative Medical decision making narrative: Care signed out to Dr. Dawn at change of shift. See final notes for diagnosis and disposition. Patient presents here with seizure he had a history of seizure and had 1 seizure today and had another seizure here and has extended postictal periods head CT blood works normal spoke to the hospitalist will admit at this time did load him with Keppra. Lab Data 11/04/23 04:15 11/04/23 04:15 Labs: Radiology Impressions Chest X-Ray 11/02/23 18:12 IMPRESSION: 1. No acute cardiopulmonary abnormality. If there is ongoing clinical concern, consider correlation with CT. Head CT 11/02/23 19:02 IMPRESSION: 1. No acute intracranial abnormality. Laboratory Results WBC 8.42 10^3/uL (3.29-11.43) 11/03/23 03:54 RBC 4.42 10^6/uL (3.85-5.65) 11/03/23 03:54 Hgb 14.70 g/dL (11.27-16.99) 11/03/23 03:54 Hct 42.6 % (37-53) 11/03/23 03:54 MCV 96.4 fl (82-101) 11/03/23 03:54 MCH 33.3 pg (27-33) H 11/03/23 03:54 MCHC 34.5 g/dL (30-55) 11/03/23 03:54 RDW 13.6 % (12.1-15.1) 11/03/23 03:54 Plt Count 171 10^3/cmm (157-399) 11/03/23 03:54 MPV 10.7 fL (7.4-10.4) H 11/03/23 03:54 Neut % (Auto) 62.3 % 11/03/23 03:54 Lymph % (Auto) 18.3 % 11/03/23 03:54 Fulton % (Auto) 6.7 % 11/03/23 03:54 Eos % (Auto) 11.5 % 11/03/23 03:54 Baso % (Auto) 0.8 % 11/03/23 03:54 Neut # (Auto) 5.25 10^3/uL (1.8-7.7) 11/03/23 03:54 Lymph # (Auto) 1.5 10^3/uL (0.8-4.8) 11/03/23 03:54 Fulton # (Auto) 0.6 10^3/uL (0.2-0.9) 11/03/23 03:54 Eos # (Auto) 1.0 10^3/uL (0.0-0.8) H 11/03/23 03:54 Baso # (Auto) 0.1 10^3/uL (0.0-0.1) 11/03/23 03:54 Nucleated RBC % (auto) 0 % 11/03/23 03:54 Nucleated RBCs # 0.0 /100WBC 11/03/23 03:54 Sodium 137 mmol/L (136-145) 11/03/23 03:54 Potassium 3.9 mmol/L (3.5-5.1) 11/03/23 03:54 Chloride 101 mmol/L (98-107) 11/03/23 03:54 Carbon Dioxide 27 mmol/L (22-29) 11/03/23 03:54 Anion Gap 12.9 (5-19) 11/03/23 03:54 BUN 16 mg/dL (8-23) 11/03/23 03:54 Creatinine 0.9 mg/dL (0.7-1.2) 11/03/23 03:54 GFR Calculation 83.4 mL/min (90-130) L 11/03/23 03:54 Glucose 90 mg/dL (65-115) 11/03/23 03:54 Calculated Osmolality 285 mOsm/kg (285-295) 11/03/23 03:54 Calcium 9.0 mg/dL (8.5-10.5) 11/03/23 03:54 Magnesium 1.7 mg/dL (1.7-2.3) 11/03/23 03:54 Total Bilirubin 0.4 mg/dL (0.15-1.2) 11/03/23 03:54 AST 20 U/L (0-40) 11/03/23 03:54 ALT 12 U/L (0-41) 11/03/23 03:54 Alkaline Phosphatase 67 U/L (40-130) 11/03/23 03:54 Creatine Kinase 35 U/L (39-308) L 11/02/23 15:47 Total Protein 6.5 g/dL (6.6-8.7) L 11/03/23 03:54 Albumin 3.5 g/dL (3.5-5.2) 11/03/23 03:54 Globulin 3.0 g/dL (1.3-4.6) 11/03/23 03:54 TSH 2.68 uIU/mL (0.27-4.20) 11/02/23 15:12 Urine Color Yellow (Yellow) 11/02/23 20:02 Urine Appearance Cloudy (CLEAR) A 11/02/23 20:02 Urine pH 7 (5-7) 11/02/23 20:02 Ur Specific Spencer 1.015 (1.005-1.030) 11/02/23 20:02 Urine Protein Neg (Negative) 11/02/23 20:02 Urine Glucose (UA) Norm (Normal) 11/02/23 20:02 Urine Ketones 1+ (Negative) H 11/02/23 20:02 Urine Blood Neg (Negative) 11/02/23 20:02 Urine Nitrate Negative (Negative) 11/02/23 20:02 Urine Bilirubin Neg (Negative) 11/02/23 20:02 Urine Urobilinogen Norm mg/dL (Negative) 11/02/23 20:02 Ur Leukocyte Esterase Negative (Negative) 11/02/23 20:02 Urine RBC None /hpf (0-2) 11/02/23 20:02 Urine WBC None /hpf (0-5) 11/02/23 20:02 Ur Squamous Epith Cells None /hpf (0-5) 11/02/23 20:02 Amorphous Sediment 3+ /hpf 11/02/23 20:02 Urine Bacteria Trace /hpf (NONE) 11/02/23 20:02 Valproic Acid 81.0 ug/mL (50-100) 11/02/23 15:47 Discharge Plan Discharge Patient Disposition: Placed in Observation Admit Provider: Jay Harris Clinical Impression: Generalized seizure Discharge Diet: As Directed Discharge Activity: Resume usual activity Coding Level of Care Code ED [facility] for [facility] Fwd Documented by User: Paola Martinez MD 11/02/23 19:52 HPI - Seizure 2 General: Chief Complaint: Seizure Stated Complaint: seizures Time Seen by Provider: 11/02/23 15:10 PFSH ED 2 PFSH: Medical History Hypothyroidism Dementia Coronary artery disease Aspiration into airway Hypotension Bronchitis Elevated troponin Post-ictal state Hypoxia Non-ST elevation AK (NSTEMI) Seizure Myopathy Depression Secondarily generalized seizures Concussion Pneumonia Seizure Chronic lower back pain Alzheimer disease Restless legs syndrome Peripheral neuropathy Frontal lobe epilepsy Surgical History S/P insertion of spinal cord stimulator Family History Other Diabetes Hypertension Stroke Denies family history of CAD (coronary artery disease) Social History Smoking and tobacco/nicotine status: former use of tobacco/nicotine Alcohol intake: never Substance/Drug Use: never Course 2 Reevaluation(s): Reevaluation #1: Patient has not had a seizure lasted roughly 1 to 2 minutes and then resolve on its own will give him a Keppra bolus. Time: 19:30 Vital Signs: Vital signs: Vital Signs Temperature 97.8 F 11/03/23 12:15 Pulse Rate 66 11/04/23 15:19 Respiratory Rate 16 11/03/23 13:45 Blood Pressure 120/70 11/03/23 13:45 Pulse Oximetry 98 11/03/23 13:45 Oxygen Delivery Me thod Room Air 11/03/23 13:45 Oxygen Flow Rate 2 11/03/23 04:30 MDM - Seizure MDM Narrative Medical decision making narrative: Patient presents here with seizure he had a history of seizure and had 1 seizure today and had another seizure here and has extended postictal periods head CT blood works normal spoke to the hospitalist will admit at this time did load him with Keppra. Lab Data Attestation: I reviewed the patient's lab results. 11/04/23 04:15 11/04/23 04:15 Labs: Radiology Impressions Chest X-Ray 11/02/23 18:12 IMPRESSION: 1. No acute cardiopulmonary abnormality. If there is ongoing clinical concern, consider correlation with CT. Head CT 11/02/23 19:02 IMPRESSION: 1. No acute intracranial abnormality. Laboratory Results WBC 8.42 10^3/uL (3.29-11.43) 11/03/23 03:54 RBC 4.42 10^6/uL (3.85-5.65) 11/03/23 03:54 Hgb 14.70 g/dL (11.27-16.99) 11/03/23 03:54 Hct 42.6 % (37-53) 11/03/23 03:54 MCV 96.4 fl (82-101) 11/03/23 03:54 MCH 33.3 pg (27-33) H 11/03/23 03:54 MCHC 34.5 g/dL (30-55) 11/03/23 03:54 RDW 13.6 % (12.1-15.1) 11/03/23 03:54 Plt Count 171 10^3/cmm (157-399) 11/03/23 03:54 MPV 10.7 fL (7.4-10.4) H 11/03/23 03:54 Neut % (Auto) 62.3 % 11/03/23 03:54 Lymph % (Auto) 18.3 % 11/03/23 03:54 Fulton % (Auto) 6.7 % 11/03/23 03:54 Eos % (Auto) 11.5 % 11/03/23 03:54 Baso % (Auto) 0.8 % 11/03/23 03:54 Neut # (Auto) 5.25 10^3/uL (1.8-7.7) 11/03/23 03:54 Lymph # (Auto) 1.5 10^3/uL (0.8-4.8) 11/03/23 03:54 Fulton # (Auto) 0.6 10^3/uL (0.2-0.9) 11/03/23 03:54 Eos # (Auto) 1.0 10^3/uL (0.0-0.8) H 11/03/23 03:54 Baso # (Auto) 0.1 10^3/uL (0.0-0.1) 11/03/23 03:54 Nucleated RBC % (auto) 0 % 11/03/23 03:54 Nucleated RBCs # 0.0 /100WBC 11/03/23 03:54 Sodium 137 mmol/L (136-145) 11/03/23 03:54 Potassium 3.9 mmol/L (3.5-5.1) 11/03/23 03:54 Chloride 101 mmol/L (98-107) 11/03/23 03:54 Carbon Dioxide 27 mmol/L (22-29) 11/03/23 03:54 Anion Gap 12.9 (5-19) 11/03/23 03:54 BUN 16 mg/dL (8-23) 11/03/23 03:54 Creatinine 0.9 mg/dL (0.7-1.2) 11/03/23 03:54 GFR Calculation 83.4 mL/min (90-130) L 11/03/23 03:54 Glucose 90 mg/dL (65-115) 11/03/23 03:54 Calculated Osmolality 285 mOsm/kg (285-295) 11/03/23 03:54 Calcium 9.0 mg/dL (8.5-10.5) 11/03/23 03:54 Magnesium 1.7 mg/dL (1.7-2.3) 11/03/23 03:54 Total Bilirubin 0.4 mg/dL (0.15-1.2) 11/03/23 03:54 AST 20 U/L (0-40) 11/03/23 03:54 ALT 12 U/L (0-41) 11/03/23 03:54 Alkaline Phosphatase 67 U/L (40-130) 11/03/23 03:54 Creatine Kinase 35 U/L (39-308) L 11/02/23 15:47 Total Protein 6.5 g/dL (6.6-8.7) L 11/03/23 03:54 Albumin 3.5 g/dL (3.5-5.2) 11/03/23 03:54 Globulin 3.0 g/dL (1.3-4.6) 11/03/23 03:54 TSH 2.68 uIU/mL (0.27-4.20) 11/02/23 15:12 Urine Color Yellow (Yellow) 11/02/23 20:02 Urine Appearance Cloudy (CLEAR) A 11/02/23 20:02 Urine pH 7 (5-7) 11/02/23 20:02 Ur Specific Spencer 1.015 (1.005-1.030) 11/02/23 20:02 Urine Protein Neg (Negative) 11/02/23 20:02 Urine Glucose (UA) Norm (Normal) 11/02/23 20:02 Urine Ketones 1+ (Negative) H 11/02/23 20:02 Urine Blood Neg (Negative) 11/02/23 20:02 Urine Nitrate Negative (Negative) 11/02/23 20:02 Urine Bilirubin Neg (Negative) 11/02/23 20:02 Urine Urobilinogen Norm mg/dL (Negative) 11/02/23 20:02 Ur Leukocyte Esterase Negative (Negative) 11/02/23 20:02 Urine RBC None /hpf (0-2) 11/02/23 20:02 Urine WBC None /hpf (0-5) 11/02/23 20:02 Ur Squamous Epith Cells None /hpf (0-5) 11/02/23 20:02 Amorphous Sediment 3+ /hpf 11/02/23 20:02 Urine Bacteria Trace /hpf (NONE) 11/02/23 20:02 Valproic Acid 81.0 ug/mL (50-100) 11/02/23 15:47 All radiology interpretation(s) finalized by discharge Discharge Plan Discharge Patient Disposition: Placed in Observation Admit Provider: Jay Harris Clinical Impression: Generalized seizure Discharge Diet: As Directed Discharge Activity: Resume usual activity Coding Level of Care Code ED [facility] for Alex Fenton
[2023-11-02 15:55] LABS: Basophils # 0.1 10^3/uL (0.0-0.1); Eosinophils % 25.4 %; Hematocrit 43.1 % (37-53); Lymphocytes # 1.1 10^3/uL (0.8-4.8); Lymphocytes % 13.5 %; Mean Corpuscular HGB Conc 34.3 g/dL (30-55); Mean Corpuscular Hemoglobin 33.5 pg (27-33); Mean Corpuscular Volume 97.5 fl (82-101); Mean Platelet Volume 10.6 fL (7.4-10.4); Monocytes # 0.3 10^3/uL (0.2-0.9); Monocytes % 4.2 %; Neutrophils # 4.34 10^3/uL (1.8-7.7); Neutrophils % 55.6 %; Nucleated Red Blood Cells % 0 %; Platelet Count 172 10^3/cmm (157-399); Red Blood Count 4.42 10^6/uL (3.85-5.65); Red Cell Distribution Width 13.7 % (12.1-15.1)
[2023-11-02 16:15] LABS: Alanine Aminotransferase 14 U/L (0-41); Albumin Level 3.8 g/dL (3.5-5.2); Alkaline Phosphatase 78 U/L (40-130); Aspartate Amino Transferase 20 U/L (0-40); Blood Urea Nitrogen 20 mg/dL (8-23); Calcium 9.4 mg/dL (8.5-10.5); Carbon Dioxide 28 mmol/L (22-29); Chloride 100 mmol/L (98-107); Creatinine Clr Calc Pharmacy 57.3887; Globulin 3.2 g/dL (1.3-4.6); Glomerular Filtration Rate 59.9 mL/min (90-130); Glucose 104 mg/dL (65-115); Magnesium 1.9 mg/dL (1.7-2.3); Osmolality Calculated 289 mOsm/kg (285-295); Sodium 138 mmol/L (136-145); Total Bilirubin 0.2 mg/dL (0.15-1.2)
--- NOTE | 2023-11-02 18:11 | ECG_ITS ---
[facility] Test Date: 2023-11-02 Pat Name: Ketan Sandra Department: Room: Gender: Male [employer] Resources Hr Representative: : 1950 Requested By: Louis Choi Order Number: [id number] Bogdan MD: Ronald Byrd M.D. Measurements Intervals Warren Rate: 81 P: 69 SD: 193 QRS: -44 QRSD: 122 T: 60 QT: 375 QTc: 435 Interpretive Statements SINUS RHYTHM LEFT AXIS DEVIATION [QRS AXIS < -30] SEPTAL MYOCARDIAL INFARCTION , PROBABLY OLD [40+ ms Q WAVE IN V1/V2] Compared to ECG 08/11/2023 15:38:43 Left-axis deviation now present Ventricular premature complex(es) no longer present Left anterior fascicular block no longer present Myocardial infarct finding still present Electronically Signed On 11-03-2023 16:52:33 CDT by Ronald Byrd M.D. [email or web address]
--- NOTE | 2023-11-02 18:12 | XRR_ITS ---
PROCEDURE INFORMATION: Exam: XR Chest Exam date and time: 11/02/2023 6:17 PM Age: 72 years old Clinical indication: Cough; Additional info: Dyspnea/cough TECHNIQUE: Imaging protocol: Radiologic exam of the chest. Views: 1 view. COMPARISON: CR XR chest 1V portable [id number] 08/10/2023 10:10 PM FINDINGS: Lungs: No focal consolidation. Pleural spaces: No evidence of pneumothorax. No evidence of pleural effusion. Heart/Mediastinum: Cardiomediastinal silhouette is within normal limits. Bones/joints: No evidence of acute osseous abnormality. Stimulator leads projecting over the midthoracic spine. XR/XR chest 1V portable [id number] IMPRESSION: 1. No acute cardiopulmonary abnormality. If there is ongoing clinical concern, consider correlation with CT.
--- NOTE | 2023-11-02 19:02 | CTR_ITS ---
PROCEDURE INFORMATION: Exam: CT Head Without Contrast Exam date and time: 11/02/2023 7:16 PM Age: 72 years old Clinical indication: Other: Seizure TECHNIQUE: Imaging protocol: Computed tomography of the head without contrast. Radiation optimization: All CT scans at this facility use at least one of these dose optimization techniques: automated exposure control; mA and/or kV adjustment per patient size (includes targeted exams where dose is matched to clinical indication); or iterative reconstruction. COMPARISON: CT head wo con* [id number] 08/10/2023 10:18 PM RADIATION DOSE METRICS: Total DLP (mGy-cm): 1191.98 FINDINGS: Brain: Sequela of moderate chronic microvascular ischemic changes with periventricular and deep white matter hypoattenuation. Caraballo-white differentiation is otherwise maintained. No evidence of intra-axial or extra-axial hemorrhage. No mass effect or midline shift. Basilar cisterns are patent. Cerebral ventricles: No hydrocephalus. Paranasal sinuses: The visualized paranasal sinuses are well aerated. Mastoid air cells: The visualized mastoids and middle ears are clear. Bones/joints: The visualized calvarium and bony orbits are intact. Soft tissues: No gross soft tissue abnormality. CT/CT head wo con* [id number] IMPRESSION: 1. No acute intracranial abnormality.
[2023-11-02] MEDS: LORazepam 2 mg/mL INJ 10 mL MDV 1 MG IVP (19:28)
[2023-11-02] MEDS: levETIRAcetam 1,000 MG/100 ML PREMIX 400 MG IV (19:35)
[2023-11-02 20:31] LABS: Add Urine Microscopic? YES; Bilirubin Urine Neg (Negative); Blood Urine Neg (Negative); Glucose Urine UA Norm (Normal); Ketones Urine 1+ (Negative); Leukocyte Esterase Urine Negative (Negative); Nitrate Urine Negative (Negative); Protein Urine Neg (Negative); Specific Gravity, Urine 1.015 (1.005-1.030); Urine Appearance Cloudy (CLEAR); Urine Color Yellow (Yellow); Urobilinogen Urine Norm (Negative); pH Urine 7 (5-7)
[2023-11-02 20:34] LABS: Add Urine Culture? No; Amorphous Sediment Urine 3+ /hpf; Bacteria Urine TRACE /hpf
--- NOTE | 2023-11-02 20:58 | P.HP_ITS ---
Documented by User: BE Priest [facility] 11/02/23 22:14 Providers/Chief Complaint 2 Admitting Physician: Jay Harris MD Primary Care Provider: Milagro Melendez APN Chief Complaint: seizures History of Present Illness Ketan Sandra is a 72 year old male with past medical history of coronary artery disease, dementia, NSTEMI, peripheral neuropath, and seizures with home medications of Depakote, lamotrigine, and memantine. Ketan presents to the emergency department this evening accompanied by his for chief complaint of seizures. He had a seizure this afternoon at home around 1400 that lasted approximately 1 minute. Patient's baseline mental status returned approximately 20 minutes after the first seizure, with associated complaints of headache, shortness of breath, and dizziness. While in the emergency department around 1930 patient had an additional seizure that lasted approximately 2 minutes. Patient is currently postictal, unable to participate in interview, noted to be patient's historian this evening. She states that before these two seizures he hasn't had a seizure since August 2022. Mrs. Sandra denies that Mr. Sandra has missed any medications doses recently but does note of two recent medication changes that have occurred this past week including: Levothyroxine increased dose to 75mcg, and the mirrabegron was discontinued and newly started on Gemtesa. Beside this she denies that he has had any fever, chest pain, vision changes. Reports a cough x 2 weeks(suspects due to allergies), dizziness, and intermittent shortness of breath. While in the emergency department patient received 1000 mg of IV Keppra, and 1 mg IV push of Ativan. CBC, CMP, UA, Valproic acid were ordered. Head CT, EKG, and chest x-ray were obtained. Review of Systems 2 Const: Denies: fever(s), chills, body aches or change in appetite Eyes: Denies: change in vision or blurry vision ENMT: Denies: throat pain, mouth pain, ear or mastoid pain or nasal congestion Card: Reports: lightheadedness and dyspnea on exertion; Denies: chest pain Resp: Reports: dyspnea and non-productive cough GI: Denies: abdominal pain, nausea, vomiting or diarrhea : Reports: urinary frequency and urinary incontinence; Denies: flank pain, dysuria or oliguria Musc: Denies: neck pain, back pain, extremity pain or joint pain Skin/Breast: Denies: rash, pruritus or erythema Neuro: Reports: headache(s), dizziness and confusion Medications/Allergies Home Medications Medication Instructions Recorded Confirmed Last Taken Type acetaminophen 650 mg 650 mg PO Q12H PRN Pain 08/02/19 11/02/23 Unknown History tablet,extended release (Tylenol 8 Hour) cholecalciferol (vitamin D3) 50 2,000 unit PO DAILY 08/02/19 11/02/23 11/02/23 12:00 History mcg (2,000 unit) tablet (Vitamin D3) levothyroxine 50 mcg capsule 50 mcg PO QDAY 08/02/19 11/02/23 11/02/23 12:00 History magnesium 250 mg tablet 250 mg PO DAILY 08/02/19 11/02/23 11/02/23 12:00 History omega-3 fatty acids 1,000 mg 1,000 mg PO DAILY 08/02/19 11/02/23 11/02/23 12:00 History capsule vitamin E (dl, acetate) 180 mg 400 unit PO QDAY 08/02/19 11/02/23 11/02/23 12:00 History (400 unit) capsule ondansetron 4 mg disintegrating 4 mg PO Q8H PRN Abdominal 07/03/21 11/02/23 11/02/23 12:00 History tablet Discomfort guaifenesin 600 mg tablet, 600 mg PO BID PRN Congestion 07/08/22 11/02/23 Unknown History extended release 12 hr (Mucinex) latanoprost 0.005 % eye drops 1 drp ophthalmic (eye) BEDTIME 07/08/22 11/02/23 Unknown History ropinirole 1 mg tablet See Rx Instructions .Route 04/20/23 11/02/23 11/01/23 19:00 Rx .COMPLEX #300 tabs triamterene 37.5 1 ea PO DAILY 04/20/23 11/02/23 11/02/23 08:00 History mg-hydrochlorothiazide 25 mg tablet mirabegron 25 mg tablet,extended 25 mg PO DAILY 07/09/23 11/02/23 Unknown History release 24 hr memantine 10 mg tablet 10 mg PO BID 08/11/23 11/02/23 11/02/23 12:00 History potassium citrate 99 mg capsule 99 mg PO DAILY 08/11/23 11/02/23 11/02/23 12:00 History sodium chloride 1,000 mg soluble 1,000 mg PO DAILY 08/11/23 11/02/23 11/02/23 12:00 History tablet zinc acetate 50 mg (zinc) capsule 50 mg PO DAILY 08/11/23 11/02/23 11/02/23 12:00 History amoxicillin 875 mg-potassium 1 tab PO BID #10 tabs 08/13/23 11/02/23 Unknown Rx clavulanate 125 mg tablet aspirin 81 mg tablet,delayed 81 mg PO DAILY #60 tabs 08/13/23 11/02/23 11/02/23 12:00 Rx release cyanocobalamin (vitamin B-12) 1,000 mcg PO DAILY #90 tabs 08/13/23 11/02/23 11/02/23 12:00 Rx 1,000 mcg tablet (Vitamin B-12) divalproex 250 mg tablet,delayed 250 mg PO BID #60 tabs 08/13/23 11/02/23 11/02/23 12:00 Rx release divalproex 500 mg tablet,delayed 500 mg PO BID #180 tabs 08/13/23 11/02/23 11/02/23 12:00 Rx release (Depakote) lamotrigine 100 mg tablet 50 mg (1/2 x 100 mg) PO BID #60 08/13/23 11/02/23 11/02/23 12:00 Rx (Lamictal) tabs Allergies Allergy/AdvReac Type Severity Reaction Status Date / Time aloe vera AdvReac itching/aggie Verified 08/26/23 12:59 h metronidazole [From Flagyl] AdvReac seizure Verified 08/26/23 12:59 phenytoin [From Dilantin] AdvReac rash Verified 08/26/23 12:59 PFSH Acute 2 PFSH: Medical History Hypothyroidism Dementia Coronary artery disease Aspiration into airway Hypotension Bronchitis Elevated troponin Post-ictal state Hypoxia Non-ST elevation [place] (NSTEMI) Seizure Myopathy Depression Secondarily generalized seizures Concussion Pneumonia Seizure Chronic lower back pain Alzheimer disease Restless legs syndrome Peripheral neuropathy Frontal lobe epilepsy Surgical History S/P insertion of spinal cord stimulator Family History Other Diabetes Hypertension Stroke Denies family history of CAD (coronary artery disease) Social History Smoking and tobacco/nicotine status: former use of tobacco/nicotine Alcohol intake: never Substance/Drug Use: never Vitals/I&O/Wt Last Vital Signs Temp 98.1 F 11/02/23 15:03 Pulse 94 11/02/23 20:01 Resp 16 11/02/23 20:01 BP 133/83 11/02/23 20:01 Pulse Ox 91 11/02/23 20:01 O2 Del Method Room Air 11/02/23 20:01 O2 Flow Rate 2 11/02/23 15:03 11/02/23 11/02/23 11/02/23 06:59 14:59 22:59 Intake Total 100 / 100 Balance 100 / 100 Weight last 48 hrs Weight 149 lb Physical Exam 2 Narrative: General: pleasant white male sleepy, currently postictal unable to answer questions at this time. HEENT: normocephalic, neck supple no thyromegaly noted. Cardio: normal rhythm, S1-S2 noted, no murmurs rubs or gallops noted. Heart rate in the 80s. Lungs clear to auscultation bilaterally, on room air. GI: Soft, non-tender, inspection normal. Bowel sounds active in all quadrants. Extremities: bilateral lower extremity edema noted. : Deferred. states history of urinary incontinence. Skin: no rash noted. Extremities: no edema, clubbing, cyanosis present. Normal to inspection. Data 11/02/23 15:47 11/02/23 15:47 Other Labs: Eosinophils 2.0 Total protein 7.0, albumin 3.8, globulin 3.2 UA: Urine ketones 1+, WBC-none, RBC-none, leukocyte esterase-negative, squamous epithelial- none Valporic acid level: 81.0 Mag 1.9 LFT within normal limits Chest x-ray IMPRESSION: No acute cardiopulmonary abnormality. If there is ongoing clinical concern, consider correlation with CT. Head CT IMPRESSION: No acute intracranial abnormality. EKG: Normal sinus rhythm with a heart rate of 81. A&P Assessment and plan (1) Generalized seizure: Patient has had two seizures today lasting approximately 2 minutes, received IV Keppra and IVP Ativan in the ED. Has known history of seizures currently taking Depakote 750mg BID, and Lamotrigine 50mg BID. Denies missing any doses of medication. Initiate IV Keppra Continue home doses of Depakote, Lamotrigine. Obtain Valproic Acid level, did not receive home meds this evening due to seizure and postial state. Seizure Precautions Aspiration precautions Cardiac Monitoring Neruo Checks Valproic Acid level: 81 Mag 1.9. (2) Dementia: Fall precautions Continue home medications of Memantine Increased observation Qualifiers: Alzheimer's disease onset: unspecified onset Dementia behavioral or psychological symptom: without behavioral, psychotic, or mood disturbance or anxiety Dementia severity: moderate Dementia type: Alzheimer's Qualified Code(s): G30.9 - Alzheimer's disease, unspecified; F02.B0 - Dementia in other diseases classified elsewhere, moderate, without behavioral disturbance, psychotic disturbance, mood disturbance, and anxiety (3) Hypothyroidism: Recently increased dose of 50mcg to 75mcg of levothyroxine about a week ago, continue this home dose. TSH level pending. Coding Level of Care Code Critical Care >/= 30 minutes Diagnoses Generalized seizure R56.9 Dementia G30.9; F02.B0 Alzheimer's disease onset: unspecified onset Dementia behavioral or psychological symptom: without behavioral, psychotic, or mood disturbance or anxiety Dementia severity: moderate Dementia type: Alzheimer's Hypothyroidism E03.9 Documented by User: Jay Harris MD 11/02/23 22:29 Providers/Chief Complaint 2 Chief Complaint: seizures Medications/Allergies Home Medications Medication Instructions Recorded Confirmed Last Taken Type acetaminophen 650 mg 650 mg PO Q12H PRN Pain 08/02/19 11/02/23 Unknown History tablet,extended release (Tylenol 8 Hour) cholecalciferol (vitamin D3) 50 2,000 unit PO DAILY 0111/02/23 11/02/23 12:00 History mcg (2,000 unit) tablet (Vitamin D3) levothyroxine 50 mcg capsule 50 mcg PO QDAY 08/02/19 11/02/23 11/02/23 12:00 History magnesium 250 mg tablet 250 mg PO DAILY 08/02/19 11/02/23 11/02/23 12:00 History omega-3 fatty acids 1,000 mg 1,000 mg PO DAILY 08/02/19 11/02/23 11/02/23 12:00 History capsule vitamin E (dl, acetate) 180 mg 400 unit PO QDAY 08/02/19 11/02/23 11/02/23 12:00 History (400 unit) capsule ondansetron 4 mg disintegrating 4 mg PO Q8H PRN Abdominal 07/03/21 11/02/23 11/02/23 12:00 History tablet Discomfort guaifenesin 600 mg tablet, 600 mg PO BID PRN Congestion 07/08/22 11/02/23 Unknown History extended release 12 hr (Mucinex) latanoprost 0.005 % eye drops 1 drp ophthalmic (eye) BEDTIME 07/08/22 11/02/23 Unknown History ropinirole 1 mg tablet See Rx Instructions .Route 04/20/23 11/02/23 11/01/23 19:00 Rx .COMPLEX #300 tabs triamterene 37.5 1 ea PO DAILY 04/20/23 11/02/23 11/02/23 08:00 History mg-hydrochlorothiazide 25 mg tablet mirabegron 25 mg tablet,extended 25 mg PO DAILY 07/09/23 11/02/23 Unknown History release 24 hr memantine 10 mg tablet 10 mg PO BID 08/11/23 11/02/23 11/02/23 12:00 History potassium citrate 99 mg capsule 99 mg PO DAILY 08/11/23 11/02/23 11/02/23 12:00 History sodium chloride 1,000 mg soluble 1,000 mg PO DAILY 08/11/23 11/02/23 11/02/23 12:00 History tablet zinc acetate 50 mg (zinc) capsule 50 mg PO DAILY 08/11/23 11/02/23 11/02/23 12:00 History amoxicillin 875 mg-potassium 1 tab PO BID #10 tabs 08/13/23 11/02/23 Unknown Rx clavulanate 125 mg tablet aspirin 81 mg tablet,delayed 81 mg PO DAILY #60 tabs 08/13/23 11/02/23 11/02/23 12:00 Rx release cyanocobalamin (vitamin B-12) 1,000 mcg PO DAILY #90 tabs 08/13/23 11/02/23 11/02/23 12:00 Rx 1,000 mcg tablet (Vitamin B-12) divalproex 250 mg tablet,delayed 250 mg PO BID #60 tabs 08/13/23 11/02/23 11/02/23 12:00 Rx release divalproex 500 mg tablet,delayed 500 mg PO BID #180 tabs 08/13/23 11/02/23 11/02/23 12:00 Rx release (Depakote) lamotrigine 100 mg tablet 50 mg (1/2 x 100 mg) PO BID #60 08/13/23 11/02/23 11/02/23 12:00 Rx (Lamictal) tabs Allergies Allergy/AdvReac Type Severity Reaction Status Date / Time aloe vera AdvReac itching/aggie Verified 08/26/23 12:59 h metronidazole [From Flagyl] AdvReac seizure Verified 08/26/23 12:59 phenytoin [From Dilantin] AdvReac rash Verified 08/26/23 12:59 PFSH Acute 2 PFSH: Medical History Hypothyroidism Dementia Coronary artery disease Aspiration into airway Hypotension Bronchitis Elevated troponin Post-ictal state Hypoxia Non-ST elevation [place] (NSTEMI) Seizure Myopathy Depression Secondarily generalized seizures Concussion Pneumonia Seizure Chronic lower back pain Alzheimer disease Restless legs syndrome Peripheral neuropathy Frontal lobe epilepsy Surgical History S/P insertion of spinal cord stimulator Family History Other Diabetes Hypertension Stroke Denies family history of CAD (coronary artery disease) Social History Smoking and tobacco/nicotine status: former use of tobacco/nicotine Alcohol intake: never Substance/Drug Use: never Data 11/02/23 15:47 11/02/23 15:47 A&P Assessment and plan (1) Generalized seizure: Patient has had two seizures today lasting approximately 2 minutes, received IV Keppra and IVP Ativan in the ED. Has known history of seizures currently taking Depakote 750mg BID, and Lamotrigine 50mg BID. Denies missing any doses of medication. Initiate IV Keppra, 1 g given in the emergency department. Tomorrow start with 500 mg twice daily Continue home doses of Depakote, Lamotrigine. Obtain Valproic Acid level, did not receive home meds this evening due to seizure and postial state. Will give his home medicines dose as he is coming around and alert. Seizure Precautions Aspiration precautions Cardiac Monitoring Neuro Checks Valproic Acid level: 81 Mag 1.9. Check Lamictal level Ativan as needed breakthrough seizure Check CK Hydration Observation currently. If no further seizures consider contacting his neurologist Dr. Vallecillo tomorrow with any instructions and potential discharge. Clear liquid diet Technically presentation consistent with status epilepticus as had a second seizure, and was still postictal from the first seizure which occurred hours before. (2) Dementia: Fall precautions Continue home medications of Memantine Increased observation Some issues with swallowing at home. Will get a speech therapy consult. Qualifiers: Alzheimer's disease onset: unspecified onset Dementia behavioral or psychological symptom: without behavioral, psychotic, or mood disturbance or anxiety Dementia severity: moderate Dementia type: Alzheimer's Qualified Code(s): G30.9 - Alzheimer's disease, unspecified; F02.B0 - Dementia in other diseases classified elsewhere, moderate, without behavioral disturbance, psychotic disturbance, mood disturbance, and anxiety (3) Hypothyroidism: Plan Multiple other medical problems as outlined by his past medical history Full code SCDs and Lovenox for DVT prophylaxis Attestations 2 Medical Necessity Statement*: Will need less than 2 midnight stay for evaluation and treatment of seizure disorder with breakthrough seizure x 2 Critical Care Time: The high probability of a clinically significant, sudden or life threatening deterioration of the patient's [neurologic] system(s) required my full and direct attention, intervention and personal management. The critical care time is as shown. This time is in addition to time spent performing any reported procedures but includes the following: [x] Data and vital sign review and interpretation [x] Patient assessment, examination and intervention [x] Documentation [x] Medication orders and management Critical Care Time (min): 54 Coding Level of Care Code Critical Care >/= 30 minutes Critical care time (in minutes): 54 The high probability of a clinically significant, sudden or life threatening deterioration, as referenced in this documentation, required my full and direct attention, intervention and personal management. The critical care time shown is in addition to time spent performing any reported separately billable procedures and includes the following: [x] Data and vital sign review and interpretation [x ] Patient assessment, examination and intervention [x] Medication orders and management [x] Patient/Family updates as able [x] Care Coordination and Documentation. Diagnoses Generalized seizure R56.9 Dementia G30.9; F02.B0 Alzheimer's disease onset: unspecified onset Dementia behavioral or psychological symptom: without behavioral, psychotic, or mood disturbance or anxiety Dementia severity: moderate Dementia type: Alzheimer's Hypothyroidism E03.9
[2023-11-02] MEDS: ropinirole 1 mg Tablet 2 MG PO (22:29)
[2023-11-02] MEDS: lamoTRIgine 100 mg Tablet 50 MG PO (22:30)
[2023-11-02] MEDS: divalproex DR 500 mg Tablet PO (22:30)
[2023-11-02] MEDS: divalproex DR 250 mg Tablet PO (22:30)
[2023-11-02 22:34] LABS: Thyroid Stimulating Hormone 2.68 uIU/mL (0.27-4.20)
[2023-11-02] MEDS: sodium chloride 0.9% 1,000 ML 75 ML IV (22:43)
[2023-11-02 23:06] LABS: Creatine Phosphokinase 35 U/L (39-308)
[2023-11-03] VITALS (52 sets, daily range): BP systolic 82–139; BP diastolic 55–89; PULSE 63–91; RESP 11–28; TEMP 36.6–36.9; O2SAT 89–100; BMI 21.2
[2023-11-03 04:37] LABS: Basophils # 0.1 10^3/uL (0.0-0.1); Basophils % 0.8 %; Eosinophils % 11.5 %; Hematocrit 42.6 % (37-53); Lymphocytes # 1.5 10^3/uL (0.8-4.8); Lymphocytes % 18.3 %; Mean Corpuscular HGB Conc 34.5 g/dL (30-55); Mean Corpuscular Hemoglobin 33.3 pg (27-33); Mean Corpuscular Volume 96.4 fl (82-101); Mean Platelet Volume 10.7 fL (7.4-10.4); Monocytes # 0.6 10^3/uL (0.2-0.9); Monocytes % 6.7 %; Neutrophils # 5.25 10^3/uL (1.8-7.7); Neutrophils % 62.3 %; Nucleated Red Blood Cells % 0 %; Platelet Count 171 10^3/cmm (157-399); Red Blood Count 4.42 10^6/uL (3.85-5.65); Red Cell Distribution Width 13.6 % (12.1-15.1); White Blood Count 8.42 10^3/uL (3.29-11.43)
[2023-11-03 05:00] LABS: Alanine Aminotransferase 12 U/L (0-41); Albumin Level 3.5 g/dL (3.5-5.2); Alkaline Phosphatase 67 U/L (40-130); Anion Gap 12.9 (5-19); Aspartate Amino Transferase 20 U/L (0-40); Blood Urea Nitrogen 16 mg/dL (8-23); Carbon Dioxide 27 mmol/L (22-29); Chloride 101 mmol/L (98-107); Creatinine Clr Calc Pharmacy 78.6091; Glomerular Filtration Rate 83.4 mL/min (90-130); Glucose 90 mg/dL (65-115); Magnesium 1.7 mg/dL (1.7-2.3); Osmolality Calculated 285 mOsm/kg (285-295); Potassium 3.9 mmol/L (3.5-5.1); Sodium 137 mmol/L (136-145); Total Bilirubin 0.4 mg/dL (0.15-1.2); Total Protein 6.5 g/dL (6.6-8.7)
[2023-11-03] MEDS: levETIRAcetam 1,000 mg/10 mL UDC 500 MG PO ×2 (09:53→18:15)
[2023-11-03] MEDS: divalproex DR 250 mg Tablet PO ×2 (09:54→18:15)
[2023-11-03] MEDS: lamoTRIgine 100 mg Tablet 50 MG PO ×2 (09:54→18:15)
[2023-11-03] MEDS: aspirin 81 mg EC Tablet PO (09:54)
[2023-11-03] MEDS: memantine 5 mg tablet 10 MG PO ×2 (09:54→18:15)
[2023-11-03] MEDS: divalproex DR 500 mg Tablet PO ×2 (09:54→18:16)
[2023-11-03] MEDS: levothyroxine 50 mcg Tablet PO (09:54)
[2023-11-03] MEDS: sodium chloride 0.9% 1,000 ML 75 ML IV (11:24)
--- NOTE | 2023-11-03 11:36 | P.PN_ITS ---
Subjective 2 Subjective: seen this am pt still lethargic. says he remains post ictal for upto 48 hours he is unable to get out of bed by himself Vitals/I&O/Wt Last Vital Signs Temp 98.5 F 11/03/23 06:00 Pulse 72 11/03/23 10:00 Resp 24 H 11/03/23 10:00 BP 126/86 11/03/23 10:00 Pulse Ox 93 11/03/23 10:00 O2 Del Method Room Air 11/03/23 10:00 O2 Flow Rate 2 11/03/23 04:30 11/02/23 11/03/23 11/03/23 22:59 06:59 14:59 Intake Total 100 / 100 1071.25 / 1071.25 Balance 100 / 100 1071.25 / 1071.25 Weight last 48 hrs Weight 68.974 kg Weight 68.974 kg Weight 68.974 kg Weight 67.585 kg Physical Exam 2 Narrative: General: pleasant white male awake alert however lethargic. able to answer some questions but is very slow Cardio: normal rhythm, S1-S2 noted, no murmurs rubs or gallops noted. Lungs clear to auscultation bilaterally, on room air. GI: Soft, non-tender, inspection normal. Bowel sounds active in all quadrants. Extremities: bilateral lower extremity edema noted. : Deferred. states history of urinary incontinence. Skin: no rash noted. Extremities: no edema, clubbing, cyanosis present. Normal to inspection. Data 11/03/23 03:54 11/03/23 03:54 A&P Assessment and plan (1) Generalized seizure: Patient has had two seizures today lasting approximately 2 minutes, received IV Keppra and IVP Ativan in the ED. Has known history of seizures currently taking Depakote 750mg BID, and Lamotrigine 50mg BID. Denies missing any doses of medication. Initiate IV Keppra, 1 g given in the emergency department. Tomorrow start with 500 mg twice daily Continue home doses of Depakote, Lamotrigine. Obtain Valproic Acid level, did not receive home meds this evening due to seizure and postial state. Will give his home medicines dose as he is coming around and alert. Seizure Precautions Aspiration precautions Cardiac Monitoring Neuro Checks Valproic Acid level: 81 Mag 1.9. Check Lamictal level - pending Ativan as needed breakthrough seizure Check CK Hydration Observation currently. If no further seizures consider contacting his neurologist Dr. Vallecillo tomorrow with any instructions and potential discharge. Clear liquid diet Technically presentation consistent with status epilepticus as had a second seizure, and was still postictal from the first seizure which occurred hours before. (2) Dementia: Fall precautions Continue home medications of Memantine Increased observation Some issues with swallowing at home. Will get a speech therapy consult. Qualifiers: Alzheimer's disease onset: unspecified onset Dementia behavioral or psychological symptom: without behavioral, psychotic, or mood disturbance or anxiety Dementia severity: moderate Dementia type: Alzheimer's Qualified Code(s): G30.9 - Alzheimer's disease, unspecified; F02.B0 - Dementia in other diseases classified elsewhere, moderate, without behavioral disturbance, psychotic disturbance, mood disturbance, and anxiety (3) Hypothyroidism: Recently increased dose of 50mcg to 75mcg of levothyroxine about a week ago, continue this home dose. TSH level pending. Plan Multiple other medical problems as outlined by his past medical history Full code SCDs and Lovenox for DVT prophylaxis 11/03/2023 speech swallow eval today discuss with kilo for med changes Patient quite lethargic unable to fully participate in speech swallow evaluation. Demonstrates some coughing episodes when speech therapist attempted. Will keep on clear liquids today however thickened. Patient was able to take medications with applesauce this morning. Still in somewhat postictal state. PT when able. Transfer to medical surgical floor. Attestations 2 Medical Necessity Statement*: continue to monitor in hospital Diagnoses Generalized seizure R56.9 Dementia G30.9; F02.B0 Alzheimer's disease onset: unspecified onset Dementia behavioral or psychological symptom: without behavioral, psychotic, or mood disturbance or anxiety Dementia severity: moderate Dementia type: Alzheimer's Hypothyroidism E03.9
--- NOTE | 2023-11-03 14:33 | PC.NURSE ---
Report called to Rosalind. Patient and belongings taken to room 260-1. at beside.
[2023-11-03] MEDS: ropinirole 1 mg Tablet 2 MG PO (21:01)
[2023-11-04] MEDS: sodium chloride 0.9% 1,000 ML 75 ML IV (00:28)
[2023-11-04 05:23] LABS: Basophils % 0.6 %; Eosinophils # 1.5 10^3/uL (0.0-0.8); Eosinophils % 22.3 %; Hematocrit 40.3 % (37-53); Lymphocytes # 1.6 10^3/uL (0.8-4.8); Lymphocytes % 23.1 %; Mean Corpuscular HGB Conc 34.2 g/dL (30-55); Mean Corpuscular Hemoglobin 33.1 pg (27-33); Mean Corpuscular Volume 96.6 fl (82-101); Mean Platelet Volume 10.8 fL (7.4-10.4); Monocytes # 0.5 10^3/uL (0.2-0.9); Monocytes % 6.8 %; Neutrophils % 46.9 %; Nucleated Red Blood Cells % 0 %; Platelet Count 152 10^3/cmm (157-399); Red Blood Count 4.17 10^6/uL (3.85-5.65); Red Cell Distribution Width 13.8 % (12.1-15.1); White Blood Count 6.81 10^3/uL (3.29-11.43)
[2023-11-04 05:43] LABS: Anion Gap 12.5 (5-19); Blood Urea Nitrogen 15 mg/dL (8-23); Calcium 8.3 mg/dL (8.5-10.5); Carbon Dioxide 26 mmol/L (22-29); Chloride 105 mmol/L (98-107); Creatinine Clr Calc Pharmacy 79.1851; Glomerular Filtration Rate 83.4 mL/min (90-130); Glucose 70 mg/dL (65-115); Magnesium 1.8 mg/dL (1.7-2.3); Osmolality Calculated 289 mOsm/kg (285-295); Potassium 3.5 mmol/L (3.5-5.1); Sodium 140 mmol/L (136-145)
[2023-11-04 05:50] VITALS: PULSE 66
[2023-11-04] MEDS: memantine 5 mg tablet 10 MG PO (09:13)
[2023-11-04] MEDS: divalproex DR 500 mg Tablet PO ×2 (09:13→09:19)
[2023-11-04] MEDS: aspirin 81 mg EC Tablet PO (09:14)
[2023-11-04] MEDS: levothyroxine 50 mcg Tablet PO (09:14)
[2023-11-04] MEDS: lamoTRIgine 100 mg Tablet 50 MG PO (09:15)
[2023-11-04] MEDS: pneumococcal (23 valent) SDV 0.5 mL IM (09:19)
--- NOTE | 2023-11-04 09:28 | PC.CHAP ---
Pastoral Care Encounter/Spiritual Assessment Type of Contact [] Declined joiners supervisor visit [] Patient/Family/Request visit [] Outpatient visit [] Follow-up visit [] Physician referral [] Code/Alert [x] Routine visit [] Staff referral [] Actively dying [] Patient sleeping [x] Family support [] [] Out of room [] Palliative care [] [] Receiving care in room [] Pre-surgical visit [] Trauma [] Long length of stay [] ICU visit [] Other: Relational/Emotional Strength [x] Patient feels connected with others/family/visitors/staff [] Distress [] Loneliness/isolation [] Abandonment Spirituality of Patient [x] Person of Camelia [] Attends Religious of their Camelia [x] Believes in Prayer [] Reads Bible or Samaritan materials [] There are Spiritual issues to be addressed Supervisor [employer] Workers Interventions [x] Prayer [x] Active listening [] Non-anxious presence [x] Spiritual/emotional support [] Crisis/trauma care [] Spiritual counseling [] Bereavement support [] Provided bereavement packet [] Provided Bible/devotional materials [] Provided toy/stuffed animal, coloring book to patient or family member [] Provided Communion [] Anointing/[place] [] Salvation [x] Completed spiritual assessment [] Other: Impact on Illness or Injury [] Angry [] Fearful [] Anxious [] Often cries [] Exhaustion [] Unable to work [] Unable to attend yarsanism [] Unable to walk/stand [] Unable to read [] Unable to drive [] Unable to eat/drink [] Unable to sleep [] Unable to be with family [] Patient intubated [] Other: Summary Time spent with patient 5 min
[2023-11-04 09:35] LABS: Valproic Acid Level 61.2 ug/mL (50-100)
--- NOTE | 2023-11-04 11:55 | P.PN_ITS ---
Subjective 2 Subjective: Seen this morning. Patient lethargic and sleepy. Patient's states that typically it takes him 72 hours to come out of his postictal state however Depakote was also increased today so he is extra sleepy because of that. She says he has not gotten out of bed yet. Requesting a physical therapy consult. Also states that speech therapy did not come back to evaluate the patient. I assured the that we have already notified speech pathology to come and see him. She would like to stay another day. Discussed the case with Dr. Vallecillo over the phone as well. She recommended to stop the Keppra and start the patient on thousand Depakote twice daily. Vitals/I&O/Wt Last Vital Signs Temp 97.8 F 11/03/23 12:15 Pulse 66 11/04/23 05:50 Resp 16 11/03/23 13:45 BP 120/70 11/03/23 13:45 Pulse Ox 98 11/03/23 13:45 O2 Del Method Room Air 11/03/23 13:45 O2 Flow Rate 2 11/03/23 04:30 11/03/23 11/04/23 11/04/23 22:59 06:59 14:59 Intake Total 980 / 2051.25 Balance 980 / 2051.25 Weight last 48 hrs Weight 70.307 kg Weight 68.974 kg Weight 68.974 kg Weight 68.974 kg Weight 67.585 kg Physical Exam 2 Narrative: General: pleasant white male sleeping. Cardio: normal rhythm, S1-S2 noted, no murmurs rubs or gallops noted. Lungs clear to auscultation bilaterally, on room air. GI: Soft, non-tender, inspection normal. Bowel sounds active in all quadrants. Extremities: bilateral lower extremity edema noted. : Deferred. states history of urinary incontinence. Skin: no rash noted. Extremities: no edema, clubbing, cyanosis present. Normal to inspection. Data 11/04/23 04:15 11/04/23 04:15 A&P Assessment and plan (1) Generalized seizure: Patient has had two seizures today lasting approximately 2 minutes, received IV Keppra and IVP Ativan in the ED. Has known history of seizures currently taking Depakote 750mg BID, and Lamotrigine 50mg BID. Denies missing any doses of medication. Initiate IV Keppra, 1 g given in the emergency department. Tomorrow start with 500 mg twice daily Continue home doses of Depakote, Lamotrigine. Obtain Valproic Acid level, did not receive home meds this evening due to seizure and postial state. Will give his home medicines dose as he is coming around and alert. Seizure Precautions Aspiration precautions Cardiac Monitoring Neuro Checks Valproic Acid level: 81 Mag 1.9. Check Lamictal level - pending Ativan as needed breakthrough seizure Check CK Hydration Observation currently. If no further seizures consider contacting his neurologist Dr. Vallecillo tomorrow with any instructions and potential discharge. Clear liquid diet Technically presentation consistent with status epilepticus as had a second seizure, and was still postictal from the first seizure which occurred hours before. (2) Dementia: Fall precautions Continue home medications of Memantine Increased observation Some issues with swallowing at home. Will get a speech therapy consult. Qualifiers: Alzheimer's disease onset: unspecified onset Dementia behavioral or psychological symptom: without behavioral, psychotic, or mood disturbance or anxiety Dementia severity: moderate Dementia type: Alzheimer's Qualified Code(s): G30.9 - Alzheimer's disease, unspecified; F02.B0 - Dementia in other diseases classified elsewhere, moderate, without behavioral disturbance, psychotic disturbance, mood disturbance, and anxiety (3) Hypothyroidism: Recently increased dose of 50mcg to 75mcg of levothyroxine about a week ago, continue this home dose. TSH level pending. Plan Multiple other medical problems as outlined by his past medical history Full code SCDs and Lovenox for DVT prophylaxis 11/04/2023 speech swallow reevaluation today. Patient ends up choking on food yesterday. discuss with kilo for med changes. Recommends to stop Keppra and placed on Depakote thousand twice daily. Patient lethargic and sleepy this morning after increase Depakote dose. ? Request PT consult, Still in somewhat postictal state versus sedation from increased medication this morning. Continue to monitor in the hospital. Attestations 2 Medical Necessity Statement*: continue to monitor in hospital Diagnoses Generalized seizure R56.9 Dementia G30.9; F02.B0 Alzheimer's disease onset: unspecified onset Dementia behavioral or psychological symptom: without behavioral, psychotic, or mood disturbance or anxiety Dementia severity: moderate Dementia type: Alzheimer's Hypothyroidism E03.9
--- NOTE | 2023-11-04 14:14 | P.DS_ITS ---
Discharge Providers Date of Admission: 11/03/23 14:53 Date of Discharge: November 04, 2023 Attending Provider at Admission: Jay Harris MD Attending Provider at Discharge: Chiquita Christianson MD Primary Care Provider: Milagro Melendez APN Diagnoses at Discharge Discharge Diagnosis (1) Generalized seizure: Status: Acute (2) Dementia: Status: Acute Qualifiers: Alzheimer's disease onset: unspecified onset Dementia behavioral or psychological symptom: without behavioral, psychotic, or mood disturbance or anxiety Dementia severity: moderate Dementia type: Alzheimer's Qualified Code(s): G30.9 - Alzheimer's disease, unspecified; F02.B0 - Dementia in other diseases classified elsewhere, moderate, without behavioral disturbance, psychotic disturbance, mood disturbance, and anxiety (3) Hypothyroidism: Status: Acute Reason for Visit Reason for Visit: seizures Hospital Course Hospital Course Patient presented to the hospital with breakthrough seizure. He was loaded with Keppra in the ER and placed on Keppra 500 twice daily. Case was discussed with Dr. Vallecillo over the phone who advised to stop the Keppra and place patient on Depakote 1000 twice daily and keep the Lamictal at the current dose. Patient quite postictal after admission therefore was kept in observation at the hospital. He has been seizure-free since being here. Patient appears to be back to his baseline. He will be discharged home in stable condition. Patient's follow-up appoint with Dr. Vallecillo is upcoming in January. Dr. Vallecillo has advised that if there are any further issues patient's should call Dr. Vallecillo's clinic for an expedited appointment otherwise she will see them in January. Patient seen by speech therapy and was able to eat and he was also able to walk with physical therapy. Patient's would like to take him home at this point since he is back to his true baseline. Johana we had decided to watch him another day however since he is back to baseline we will be discharging patient home at this time. Physical Exam Narrative: General: pleasant white male awake alert improvement compared to yesterday. More awake today. Cardio: normal rhythm, S1-S2 noted, no murmurs rubs or gallops noted. Lungs clear to auscultation bilaterally, on room air. GI: Soft, non-tender, inspection normal. Bowel sounds active in all quadrants. Extremities: bilateral lower extremity edema noted. : Deferred. states history of urinary incontinence. Skin: no rash noted. Extremities: no edema, clubbing, cyanosis present. Normal to inspection. Discharge Data Studies Completed and Pending Completed Studies During Hospitalization Category Date Time Status CT head wo con* [id number] Stat Cat Scan 11/02/23 19:02 Completed XR chest 1V portable [id number] Stat Exams 11/02/23 18:12 Completed Pending at discharge Category Date Time Status Depakote [Valproic Acid Level] Routine Lab 11/04/23 08:27 Ordered Lamotrigine (Lamictal) Level Routine Lab 11/02/23 03:54 Received Radiology Impressions Chest X-Ray 11/02/23 18:12 IMPRESSION: 1. No acute cardiopulmonary abnormality. If there is ongoing clinical concern, consider correlation with CT. Head CT 11/02/23 19:02 IMPRESSION: 1. No acute intracranial abnormality. Laboratory Results WBC 6.81 10^3/uL (3.29-11.43) 11/04/23 04:15 RBC 4.17 10^6/uL (3.85-5.65) 11/04/23 04:15 Hgb 13.80 g/dL (11.27-16.99) 11/04/23 04:15 Hct 40.3 % (37-53) 11/04/23 04:15 MCV 96.6 fl (82-101) 11/04/23 04:15 MCH 33.1 pg (27-33) H 11/04/23 04:15 MCHC 34.2 g/dL (30-55) 11/04/23 04:15 RDW 13.8 % (12.1-15.1) 11/04/23 04:15 Plt Count 152 10^3/cmm (157-399) L 11/04/23 04:15 MPV 10.8 fL (7.4-10.4) H 11/04/23 04:15 Neut % (Auto) 46.9 % 11/04/23 04:15 Lymph % (Auto) 23.1 % 11/04/23 04:15 [place] % (Auto) 6.8 % 11/04/23 04:15 Eos % (Auto) 22.3 % 11/04/23 04:15 Baso % (Auto) 0.6 % 11/04/23 04:15 Neut # (Auto) 3.20 10^3/uL (1.8-7.7) 11/04/23 04:15 Lymph # (Auto) 1.6 10^3/uL (0.8-4.8) 11/04/23 04:15 [place] # (Auto) 0.5 10^3/uL (0.2-0.9) 11/04/23 04:15 Eos # (Auto) 1.5 10^3/uL (0.0-0.8) H 11/04/23 04:15 Baso # (Auto) 0.0 10^3/uL (0.0-0.1) 11/04/23 04:15 Nucleated RBC % (auto) 0 % 11/04/23 04:15 Nucleated RBCs # 0.0 /100WBC 11/04/23 04:15 Sodium 140 mmol/L (136-145) 11/04/23 04:15 Potassium 3.5 mmol/L (3.5-5.1) 11/04/23 04:15 Chloride 105 mmol/L (98-107) 11/04/23 04:15 Carbon Dioxide 26 mmol/L (22-29) 11/04/23 04:15 Anion Gap 12.5 (5-19) 11/04/23 04:15 BUN 15 mg/dL (8-23) 11/04/23 04:15 Creatinine 0.9 mg/dL (0.7-1.2) 11/04/23 04:15 GFR Calculation 83.4 mL/min (90-130) L 11/04/23 04:15 Glucose 70 mg/dL (65-115) 11/04/23 04:15 Calculated Osmolality 289 mOsm/kg (285-295) 11/04/23 04:15 Calcium 8.3 mg/dL (8.5-10.5) L 11/04/23 04:15 Magnesium 1.8 mg/dL (1.7-2.3) 11/04/23 04:15 Total Bilirubin 0.4 mg/dL (0.15-1.2) 11/03/23 03:54 AST 20 U/L (0-40) 11/03/23 03:54 ALT 12 U/L (0-41) 11/03/23 03:54 Alkaline Phosphatase 67 U/L (40-130) 11/03/23 03:54 Creatine Kinase 35 U/L (39-308) L 11/02/23 15:47 Total Protein 6.5 g/dL (6.6-8.7) L 11/03/23 03:54 Albumin 3.5 g/dL (3.5-5.2) 11/03/23 03:54 Globulin 3.0 g/dL (1.3-4.6) 11/03/23 03:54 TSH 2.68 uIU/mL (0.27-4.20) 11/02/23 15:12 Urine Color Yellow (Yellow) 11/02/23 20:02 Urine Appearance Cloudy (CLEAR) A 11/02/23 20:02 Urine pH 7 (5-7) 11/02/23 20:02 Ur Specific [place] 1.015 (1.005-1.030) 11/02/23 20:02 Urine Protein Neg (Negative) 11/02/23 20:02 Urine Glucose (UA) Norm (Normal) 11/02/23 20:02 Urine Ketones 1+ (Negative) H 11/02/23 20:02 Urine Blood Neg (Negative) 11/02/23 20:02 Urine Nitrate Negative (Negative) 11/02/23 20:02 Urine Bilirubin Neg (Negative) 11/02/23 20:02 Urine Urobilinogen Norm mg/dL (Negative) 11/02/23 20:02 Ur Leukocyte Esterase Negative (Negative) 11/02/23 20:02 Urine RBC None /hpf (0-2) 11/02/23 20:02 Urine WBC None /hpf (0-5) 11/02/23 20:02 Ur Squamous Epith Cells None /hpf (0-5) 11/02/23 20:02 Amorphous Sediment 3+ /hpf 11/02/23 20:02 Urine Bacteria Trace /hpf (NONE) 11/02/23 20:02 Valproic Acid 81.0 ug/mL (50-100) 11/02/23 15:47 Vitals Last Vital Signs Temp 97.8 F 11/03/23 12:15 Pulse 66 11/04/23 05:50 Resp 16 11/03/23 13:45 BP 120/70 11/03/23 13:45 Pulse Ox 98 11/03/23 13:45 O2 Del Method Room Air 11/03/23 13:45 O2 Flow Rate 2 11/03/23 04:30 Discharge Plan Discharge Patient Disposition: Home Condition: Stable Prescriptions: Continued acetaminophen [Tylenol 8 Hour] 650 mg tablet extended release 650 mg PO Q12H PRN (Reason: Pain) magnesium 250 mg tablet 250 mg PO DAILY levothyroxine 50 mcg capsule 50 mcg PO QDAY Patient Comments: Patient's states that they updated the dose to 75 mg cholecalciferol (vitamin D3) [Vitamin D3] 2,000 unit tablet 2,000 unit PO DAILY omega-3 fatty acids 1,000 mg capsule 1,000 mg PO DAILY vitamin E (dl, acetate) 400 unit capsule 400 unit PO QDAY triamterene-hydrochlorothiazid 37.5-25 mg tablet 1 ea PO DAILY ropinirole 1 mg tablet See Rx Instructions .ROUTE .COMPLEX Qty: 300 3RF Dose Instruction: TAKE ONE TABLET BY MOUTH At Bedtime Rx Instructions: 2 at bedtime and 1 in the afternoon mirabegron 25 mg tablet extended release 24 hr 25 mg PO DAILY Rx Instructions: Patient's states they changed medication to another one ondansetron 4 mg Tablet,Disintegrating 4 mg PO Q8H PRN (Reason: Abdominal Discomfort) zinc acetate 50 mg (zinc) Capsule 50 mg PO DAILY sodium chloride 1,000 mg Tablet,Soluble 1,000 mg PO DAILY potassium citrate 99 mg Capsule 99 mg PO DAILY memantine 10 mg tablet 10 mg PO BID Rx Instructions: TAKE ONE TABLET BY MOUTH TWICE DAILY cyanocobalamin (vitamin B-12) [Vitamin B-12] 1,000 mcg Tablet 1,000 mcg PO DAILY Qty: 90 0RF divalproex [Depakote] 500 mg tablet,delayed release (DR/EC) 500 mg PO BID Qty: 180 3RF lamotrigine [Lamictal] 100 mg tablet 50 mg PO BID Qty: 60 3RF amoxicillin-pot clavulanate 875-125 mg tablet 1 tab PO BID Qty: 10 0RF Patient Comments: Patient's states that they do not take anymore aspirin 81 mg tablet,delayed release (DR/EC) 81 mg PO DAILY Qty: 60 2RF latanoprost 0.005 % Drops 1 drp OPHTHALMIC (EYE) BEDTIME guaifenesin [Mucinex] 600 mg tablet extended release 12hr 600 mg PO BID PRN (Reason: Congestion) Changed divalproex 250 mg tablet,delayed release (DR/EC) 500 mg PO BID Qty: 60 0RF Discharge Orders: Discharge Order (Routine); Ordered 11/04/23 Ordered By: Chiquita Christianson Referrals: Melendez,LUIS Humphrey [Primary Care Provider] - 4-7 days Discharge Diet: As Directed Discharge Activity: Resume usual activity Patient Instructions: Opioid Safety Activity Restrictions/Additional Instructions: Easy to do diet with regular liquids. Discharge Attestations Time Spent in Discharge Care*: greater than 30 min Quality Metrics Clinical Quality Measures [ No reported AMI, CVA or VTE this stay] Coding Level of Care Code Acute Code for Chg Fwd Diagnoses Generalized seizure R56.9 Dementia G30.9; F02.B0 Alzheimer's disease onset: unspecified onset Dementia behavioral or psychological symptom: without behavioral, psychotic, or mood disturbance or anxiety Dementia severity: moderate Dementia type: Alzheimer's Hypothyroidism E03.9
[2023-11-04] MEDS: ropinirole 1 mg Tablet PO (14:21)
[2023-11-04 15:19] VITALS: PULSE 66
--- NOTE | 2023-11-04 15:19 | PC.NURSE ---
Discharge Note Patient discharged to home via private vehicle accompanied by . Discharge instructions reviewed with patient and/or account retention representative. Mobile pharmacy medications and/or prescriptions provided. Belongings/home medications returned.
[2023-11-07 19:34] LABS: Lamotrigine (Lamictal) Level 5.6 mcg/mL (2.5-15.0)
== END 2023-11-04 15:20 | disposition home or self-care (01) | DRG 101 ==
LOC: ER 19:52 → ICU 20:09 → MEDSURG 11-03 14:52
PROVIDERS: Family Medicine; Admitting Provider Internal Medicine; Emergency Provider Emergency Medicine; PCP Nurse Practitioner Family; Visit Provider Internal Medicine
DX: G40.409 Other generalized epilepsy and epileptic syndromes, not intractable, without status epilepticus (principal); G30.9 Alzheimer's disease, unspecified; F02.B0 Dementia in other diseases classified elsewhere, moderate, without behavioral disturbance, psychotic disturbance, mood disturbance, and anxiety; E03.9 Hypothyroidism, unspecified; I25.10 Atherosclerotic heart disease of native coronary artery without angina pectoris; G25.81 Restless legs syndrome
CPT/HCPCS: 36415; 70450; 71045; 80048; 80053; 80164; 80175; 81001; 82550; 83735; 84443; 85025; 90471; 90732; 92507; 92523; 92526; 92610; 93005; 96365; 96375; 97110; 97161; 99285; G0378; J1953; J2060; J7030

== ENCOUNTER 2023-11-03 06:00 | Outpatient (RCR) | payer MEDICARE, SELFPAY | END 2023-12-03 23:59 | disposition home or self-care (01) | LOC: TPT 06:00 | PROVIDERS: PCP Nurse Practitioner Family; Visit Provider Specialist | DX: G72.9 Myopathy, unspecified (principal) | CPT/HCPCS: 97110; 97116 ==

== ENCOUNTER 2023-12-03 20:42 | Emergency (ER) | payer MEDICARE, SELFPAY ==
[2023-12-03 20:45] VITALS: BP 125/81; PULSE 86; RESP 20; TEMP 37; O2SAT 100; BMI 19.8
--- NOTE | 2023-12-03 20:54 | ED_ITS ---
HPI - Seizure 2 General: Chief Complaint: Seizure Stated Complaint: SEIZURE Time Seen by Provider: 12/03/23 20:46 History of Present Illness: HPI Narrative: 72-year-old male brought in via EMS. Enrrique chris has a known history of epilepsy. Family reports she has had 3 seizures today and seems like each time his postictal phase gets a little bit longer. Patient was admitted on 11/04/2023 due to seizures and had a medication adjustment. He has not had any seizure since then. No other history available upon arrival as patient is postictal and still confused Seizure History: Yes Review of Systems 2 General: Reports: ROS unobtainable due to medical condition PFSH ED 2 PFSH: Medical History Hypothyroidism Dementia Coronary artery disease Aspiration into airway Hypotension Bronchitis Elevated troponin Post-ictal state Hypoxia Non-ST elevation GA (NSTEMI) Seizure Myopathy Depression Secondarily generalized seizures Concussion Pneumonia Seizure Chronic lower back pain Alzheimer disease Restless legs syndrome Peripheral neuropathy Frontal lobe epilepsy Surgical History S/P insertion of spinal cord stimulator Family History Other Diabetes Hypertension Stroke Denies family history of CAD (coronary artery disease) Social History Smoking and tobacco/nicotine status: former use of tobacco/nicotine Alcohol intake: never Substance/Drug Use: never Physical Exam 2 Const: EXAM LIMITATIONS: altered mental status (Postictal) Resp: EFFORT & INSPECTION: No tachypneic and No respiratory distress Cardio: COMMON NORMALS: regular rate and regular rhythm RATE: regular rate RHYTHM: regular rhythm Neuro: SENSORIUM/ORIENTATION: Yes Orientation impaired and Yes other (Postictal) Psych: APPEARANCE: Yes unkempt OTHER: Postictal Course 2 Vital Signs: Vital signs: Vital Signs Temperature 98.6 F 12/03/23 20:45 Pulse Rate 81 12/03/23 22:32 Respiratory Rate 18 12/03/23 22:32 Blood Pressure 141/85 12/03/23 22:32 Pulse Oximetry 92 12/03/23 21:08 Oxygen Delivery Me thod Nasal Cannula 12/03/23 22:32 Oxygen Flow Rate 2 12/03/23 22:32 MDM - Seizure MDM Narrative Medical decision making narrative: Patient's diagnostic studies were reviewed and interpreted by me. Patient's labs showed no acute findings. Patient did have another seizure while he was here. At that time he was given Ativan. I did call and discussed with [facility] neurologist on-call. They did feel that he would benefit from being admitted where there was neurology available however they do not have any beds available. They did recommend giving Keppra 1500 mg. I then called and discussed with Dr. Thayer at [facility]. He did agree to accept patient for further inpatient management and treatment. They do have neurology available for consultation. Patient was transferred via EMS in stable condition. Lab Data 12/03/23 21:02 12/03/23 21: Labs: Laboratory Results WBC 6.71 10^3/uL (3.29-11.43) 12/03/23 21: RBC 4.70 10^6/uL (3.85-5.65) 12/03/23 21: Hgb 15.50 g/dL (11.27-16.99) 12/03/23 21: Hct 45.1 % (37-53) 12/03/23 21: MCV 96.0 fl (82-101) 12/03/23 21: MCH 33.0 pg (27-33) 12/03/23 21: MCHC 34.4 g/dL (30-55) 12/03/23 21: RDW 13.9 % (12.1-15.1) 12/03/23 21: Plt Count 200 10^3/cmm (157-399) 12/03/23 21: MPV 10.1 fL (7.4-10.4) 12/03/23 21: Neut % (Auto) 59.0 % 12/03/23 21: Lymph % (Auto) 23.8 % 12/03/23 21: [place] % (Auto) 6.6 % 12/03/23 21: Eos % (Auto) 9.4 % 12/03/23 21: Baso % (Auto) 0.6 % 12/03/23 21: Neut # (Auto) 3.96 10^3/uL (1.8-7.7) 12/03/23 21:02 Lymph # (Auto) 1.6 10^3/uL (0.8-4.8) 12/03/23 21:02 Harris # (Auto) 0.4 10^3/uL (0.2-0.9) 12/03/23 21:02 Eos # (Auto) 0.6 10^3/uL (0.0-0.8) 12/03/23 21:02 Baso # (Auto) 0.0 10^3/uL (0.0-0.1) 12/03/23 21:02 Nucleated RBC % (auto) 0 % 12/03/23 21: Nucleated RBCs # 0.0 /100WBC 12/03/23 21:02 Sodium 137 mmol/L (136-145) 12/03/23 21:02 Potassium 3.8 mmol/L (3.5-5.1) 12/03/23 21:02 Chloride 102 mmol/L (98-107) 12/03/23 21:02 Carbon Dioxide 20 mmol/L (22-29) L 12/03/23 21:02 Anion Gap 18.8 (5-19) 12/03/23 21:02 BUN 14 mg/dL (8-23) 12/03/23 21:02 Creatinine 1.0 mg/dL (0.7-1.2) 12/03/23 21:02 GFR Calculation 73.9 mL/min (90-130) L 12/03/23 21:02 Glucose 90 mg/dL (65-115) 12/03/23 21: Calculated Osmolality 284 mOsm/kg (285-295) L 12/03/23 21:02 Calcium 8.9 mg/dL (8.5-10.5) 12/03/23 21:02 Total Bilirubin 0.2 mg/dL (0.15-1.2) 12/03/23 21:02 AST 31 U/L (0-40) 12/03/23 21:02 ALT 27 U/L (0-41) 12/03/23 21:02 Alkaline Phosphatase 79 U/L (40-130) 12/03/23 21:02 Total Protein 6.8 g/dL (6.6-8.7) 12/03/23 21:02 Albumin 3.3 g/dL (3.5-5.2) L 12/03/23 21:02 Globulin 3.5 g/dL (1.3-4.6) 12/03/23 21:02 Urine Color Dark yellow (Yellow) 12/03/23 21:11 Urine Appearance Clear (CLEAR) 12/03/23 21:11 Urine pH 6.5 (5-7) 12/03/23 21:11 Ur Specific [place] 1.015 (1.005-1.030) 12/03/23 21:11 Urine Protein Neg (Negative) 12/03/23 21:11 Urine Glucose (UA) Norm (Normal) 12/03/23 21:11 Urine Ketones 1+ (Negative) H 12/03/23 21:11 Urine Blood Neg (Negative) 12/03/23 21:11 Urine Nitrate Negative (Negative) 12/03/23 21:11 Urine Bilirubin Neg (Negative) 12/03/23 21:11 Urine Urobilinogen Neg mg/dL (Negative) 12/03/23 21:11 Ur Leukocyte Esterase Negative (Negative) 12/03/23 21:11 Valproic Acid 97.8 ug/mL (50-100) 12/03/23 21:02 No radiology studies performed this visit Discharge Plan Discharge Patient Disposition: Xfer Short-Term Hosp Clinical Impression: Intractable seizure disorder, Epileptic seizure Condition: Stable Discharge Orders: Transfer Out of Facility (Order); Ordered 12/03/23 Ordered By: Luis Felipe Woodard Referrals: Melendez,Milagro, PERSONNEL SECURITY SPECIALIST [Primary Care Provider] - Coding Level of Care Code ED Lead Trainer for Alex Fenton
[2023-12-03] MEDS: sodium chloride 0.9% 1,000 ML 999 ML IV (20:59)
[2023-12-03] MEDS: valproic acid inj 500 MG in sodium chloride 0.9% 50 ML 55 MG IV (21:06)
[2023-12-03 21:08] VITALS: BP 139/88; PULSE 91; RESP 20; O2SAT 92
[2023-12-03 21:09] LABS: Basophils % 0.6 %; Eosinophils # 0.6 10^3/uL (0.0-0.8); Eosinophils % 9.4 %; Hematocrit 45.1 % (37-53); Lymphocytes # 1.6 10^3/uL (0.8-4.8); Lymphocytes % 23.8 %; Mean Corpuscular HGB Conc 34.4 g/dL (30-55); Mean Platelet Volume 10.1 fL (7.4-10.4); Monocytes # 0.4 10^3/uL (0.2-0.9); Monocytes % 6.6 %; Neutrophils # 3.96 10^3/uL (1.8-7.7); Nucleated Red Blood Cells % 0 %; Platelet Count 200 10^3/cmm (157-399); Red Cell Distribution Width 13.9 % (12.1-15.1); White Blood Count 6.71 10^3/uL (3.29-11.43)
--- NOTE | 2023-12-03 21:21 | XRR_ITS ---
PROCEDURE INFORMATION: Exam: XR Chest Exam date and time: 12/03/2023 9:25 PM Age: 72 years old Clinical indication: Shortness of breath and other: Seizures; Prior surgery; Surgery date: 6+ months; Surgery type: Spinal stimulator; Additional info: Increased seizures, cough TECHNIQUE: Imaging protocol: Radiologic exam of the chest. Views: 1 view. COMPARISON: CR (CHEST, ) 11/02/2023 6:17 PM FINDINGS: Tubes, catheters and devices: Spinal cord stimulator is in place. Lungs: Vague area of increased density in the right mid lung which was present on the previous examination. Consider evaluation with chest CT with IV contrast. There are low lung volumes. Otherwise, the lungs are clear. Pleural spaces: Unremarkable. No pleural effusion. No pneumothorax. Heart/Mediastinum: Unremarkable. No cardiomegaly. Bones/joints: Unremarkable. . XR/XR chest 1V portable [id number] IMPRESSION: 1. Vague area of increased density in the right mid lung which was present on the previous examination. Consider evaluation with chest CT with IV contrast. 2. There are low lung volumes. Otherwise, the lungs are clear.
[2023-12-03 21:26] LABS: Add Urine Microscopic? NO; Charge for UA Resulting for Rev
[2023-12-03 21:27] LABS: Alanine Aminotransferase 27 U/L (0-41); Albumin Level 3.3 g/dL (3.5-5.2); Alkaline Phosphatase 79 U/L (40-130); Aspartate Amino Transferase 31 U/L (0-40); Blood Urea Nitrogen 14 mg/dL (8-23); Calcium 8.9 mg/dL (8.5-10.5); Carbon Dioxide 20 mmol/L (22-29); Chloride 102 mmol/L (98-107); Creatinine Clr Calc Pharmacy 68.9733; Globulin 3.5 g/dL (1.3-4.6); Glomerular Filtration Rate 73.9 mL/min (90-130); Glucose 90 mg/dL (65-115); Osmolality Calculated 284 mOsm/kg (285-295); Sodium 137 mmol/L (136-145); Total Bilirubin 0.2 mg/dL (0.15-1.2); Total Protein 6.8 g/dL (6.6-8.7)
[2023-12-03] MEDS: LORazepam 2 mg/mL INJ 10 mL MDV IVP (21:27)
[2023-12-03 21:28] LABS: Anion Gap 18.8 (5-19); Potassium 3.8 mmol/L (3.5-5.1)
[2023-12-03 21:29] LABS: Bilirubin Urine Neg (Negative); Blood Urine Neg (Negative); Glucose Urine UA Norm (Normal); Ketones Urine 1+ (Negative); Leukocyte Esterase Urine Negative (Negative); Nitrate Urine Negative (Negative); Protein Urine Neg (Negative); Specific Gravity, Urine 1.015 (1.005-1.030); Urine Appearance Clear (CLEAR); Urine Color Dark Yellow (Yellow); Urobilinogen Urine Neg (Negative); pH Urine 6.5 (5-7)
[2023-12-03 21:39] LABS: Valproic Acid Level 97.8 ug/mL (50-100)
[2023-12-03 22:32] VITALS: BP 141/85; PULSE 81; RESP 18
[2023-12-03] MEDS: levETIRAcetam 1,500 MG/100 ML PREMIX 400 MG IV (22:37)
== END 2023-12-04 01:00 | disposition short-term general hospital (02) ==
PROVIDERS: Emergency Provider Student in an Organized Health Care Education/Training Program; PCP Nurse Practitioner Family
DX: G40.919 Epilepsy, unspecified, intractable, without status epilepticus (principal); Z87.891 Personal history of nicotine dependence; I25.10 Atherosclerotic heart disease of native coronary artery without angina pectoris; I25.2 Old myocardial infarction; G30.9 Alzheimer's disease, unspecified; F02.80 Dementia in other diseases classified elsewhere, unspecified severity, without behavioral disturbance, psychotic disturbance, mood disturbance, and anxiety
CPT/HCPCS: 71045; 80053; 80164; 81003; 85025; 96365; 96367; 96375; 99285; J1953; J2060; J3490; J7030

== ENCOUNTER 2023-12-17 06:45 | Emergency (ER) | payer MEDICARE, SELFPAY ==
[2023-12-17 06:47] VITALS: BP 138/81; PULSE 53; RESP 16; O2SAT 96; BMI 20.9
--- NOTE | 2023-12-17 06:55 | XRR_ITS ---
PROCEDURE INFORMATION: Exam: XR Left Hip Exam date and time: 12/17/2023 7:09 AM Age: 73 years old Clinical indication: Injury or trauma; Fall; Blunt trauma (contusions or hematomas); Left; Hip TECHNIQUE: Imaging protocol: Radiologic exam of the left hip. Views: 2 or 3 views hip with pelvis when performed. COMPARISON: No relevant prior studies available. FINDINGS: Tubes, catheters and devices: Nerve stimulator device silhouettes the left hemipelvis. Bones/joints: Diffuse severe degenerative change of the visualized osseous structures. Soft tissues: Unremarkable. Vasculature: Calcified peripheral arterial vascular disease. XR/XR hip LT 2-3V wo/w pel* [id number] IMPRESSION: 1. No acute or aggressive osseous abnormalities. 2. Additional findings as above.
[2023-12-17 07:02] VITALS: TEMP 36.7
--- NOTE | 2023-12-17 07:39 | XRR_ITS ---
PROCEDURE INFORMATION: Exam: XR Left Ribs with PA Chest Exam date and time: 12/17/2023 7:54 AM Age: 73 years old Clinical indication: Injury or trauma; Fall; Rib area, left side; Blunt trauma TECHNIQUE: Imaging protocol: Radiologic exam of the left ribs with PA chest. Views: 3 views COMPARISON: CR (CHEST, ) 12/03/2023 9:25 PM FINDINGS: Tubes, catheters and devices: Nerve stimulator device terminates at the midthoracic spine. Lungs: Left upper lobe granuloma. Pleural spaces: Unremarkable. No pleural effusion. No pneumothorax. Heart/Mediastinum: Unremarkable. No cardiomegaly. Vasculature: Calcified atherosclerotic disease of the aortic arch. Bones/joints: Diffuse degenerative change of the visualized osseous structures. Old posterior fracture deformities of the right 10 11 and 12th ribs. Old fracture deformities of the posterolateral 9th through 11th left ribs. XR/XR ribs LT mn 3V w CXR1V [id number] IMPRESSION: Old fracture deformities as detailed above, no clear evidence for displaced rib fractures on this examination. If there is continued point tenderness, recommend CT of the chest.
--- NOTE | 2023-12-17 07:39 | XRR_ITS ---
PROCEDURE INFORMATION: Exam: XR Lumbosacral Spine Exam date and time: 12/17/2023 8:00 AM Age: 73 years old Clinical indication: Injury or trauma; Fall; Blunt trauma (contusions or hematomas) TECHNIQUE: Imaging protocol: Radiologic exam of the lumbosacral spine. Views: 2 or 3 views. COMPARISON: CR XR hip LT 2-3V wo/w pel* [id number] 12/17/2023 7:09 AM FINDINGS: Tubes, catheters and devices: Partially evaluated nerve stimulator device. Bones/joints: Severe degenerative change of the visualized osseous structures. Soft tissues: Unremarkable. Vasculature: Heavy calcified atherosclerotic disease. XR/XR lumbar spine 2-3V* [id number] IMPRESSION: 1. No acute or aggressive osseous abnormality. 2. Remainder of the exam as above.
--- NOTE | 2023-12-17 07:41 | ED_ITS ---
HPI - Fall General: Chief Complaint: Fall Stated Complaint: Fall- L hip pain Time Seen by Provider: 12/17/23 06:55 Source: patient Mode of arrival: EMS Limitations: altered mental status (Dementia - at bedside gives history) History of Present Illness: 73-year-old male presents to the emergen cy room with complaints of a fall. Patient fell at the long-term while trying to get up off the toilet last night.. He has some dementia issues it is very difficult to get any specific history from him. His accompanies him she reports she has pain in his left hip left ribs and his low back. No other history no obvious history to the head no lacerations or abrasions about the head. complaint: fall Onset (ago): hour(s) Fall from: chair (While sitting on the toilet) Place fall occurred: long-term/SNF Loss of consciousness: None Prolonged down time: no Context: tripped/slipped Associated symptoms-after fall: Denies abdominal pain, chest pain, confusion, difficulty walking, headache(s), hematuria, lightheadedness, neck pain, numbness, short of breath, vertigo or weakness Review of Systems General: Reports: ROS unobtainable due to mental status Card: Denies: chest pain or lightheadedness GI: Denies: abdominal pain : Denies: hematuria Musc: Denies: neck pain Neuro: Denies: headache(s), difficulty walking, vertigo or confusion PFS ED PFSH: Medical History Hypothyroidism Dementia Coronary artery disease Aspiration into airway Hypotension Bronchitis Elevated troponin Post-ictal state Hypoxia Non-ST elevation LA (NSTEMI) Seizure Myopathy Depression Secondarily generalized seizures Concussion Pneumonia Seizure Chronic lower back pain Alzheimer disease Restless legs syndrome Peripheral neuropathy Frontal lobe epilepsy Surgical History S/P insertion of spinal cord stimulator Family History Other Diabetes Hypertension Stroke Denies family history of CAD (coronary artery disease) Social History Smoking and tobacco/nicotine status: former use of tobacco/nicotine Alcohol intake: never Substance/Drug Use: never Physical Exam Const: COMMON NORMALS: no acute distress HENMT: COMMON NORMALS: normocephalic, atraumatic and hearing grossly normal bilaterally HEAD & SCALP: normocephalic and atraumatic Resp: COMMON NORMALS: normal respiratory effort, No retractions, No use of ac cessory muscles and clear to auscultation bilaterally AUSCULTATION: clear to auscultation bilaterally Cardio: COMMON NORMALS: regular rate, regular rhythm and No murmurs present (Cardio) RATE: regular rate RHYTHM: regular rhythm GI: COMMON NORMALS: Soft to palpation and No hepatosplenomegaly present AUSCULTATION: Yes normoactive bowel sounds PALPATION: Yes Soft to palpation, No Tenderness to palpation present (GI), No Guarding due to palpation present (GI) and Yes No hepatosplenomegaly present Extremity: COMMON NORMALS: normal to inspection, capillary refill normal, no clubbing, cyanosis or edema, no calf tenderness and no pedal edema Skin: COMMON NORMALS: no rashes or lesions noted GENERAL SKIN EXAM: no rashes or lesions noted Course Vital Signs: Vital signs: Vital Signs Temperature 98.0 F 12/17/23 09:16 Pulse Rate 78 12/17/23 09:16 Respiratory Rate 16 12/17/23 09:16 Blood Pressure 138/81 12/17/23 09:16 Pulse Oximetry 99 12/17/23 09:16 Oxygen Delivery Me thod Room Air 12/17/23 06:47 MDM - Fall Medical Decision Making Patient complaining left hip pain is also concerned about ribs and low back. Patient has dementia is not able to really to relate where he is hurting it. X-rays did not show any acute fractures we did stand him states he used very difficult stand and unsteady on his feet he did not show any signs of pain. There is no report of any direct head trauma no visualized head trauma on exam. Will discharge patient back to the long-term and follow-up with his partner through his primary care. Medical Records I reviewed the patient's medical records. Lab Data I reviewed the patient's lab results. Radiology Impressions Hip/Pelvis X-Ray 12/17/23 06:55 IMPRESSION: 1. No acute or aggressive osseous abnormalities. 2. Additional findings as above. Lumbar Spine X-Ray 12/17/23 07:39 IMPRESSION: 1. No acute or aggressive osseous abnormality. 2. Remainder of the exam as above. Ribs X-Ray 12/17/23 07:39 IMPRESSION: Old fracture deformities as detailed above, no clear evidence for displaced rib fractures on this examination. If there is continued point tenderness, recommend CT of the chest. All radiology interpretation(s) finalized by discharge Discharge Plan Discharge Patient Disposition: Home Clinical Impression: Hip pain, left, Fall Condition: Stable Prescriptions: No Action acetaminophen [Tylenol 8 Hour] 650 mg tablet extended release 650 mg PO Q12H PRN (Reason: Pain) sodium chloride 1,000 mg Tablet,Soluble 1,000 mg PO DAILY cyanocobalamin (vitamin B-12) [Vitamin B-12] 1,000 mcg Tablet 1,000 mcg PO DAILY Qty: 90 0RF aspirin 81 mg tablet,delayed release (DR/EC) 81 mg PO DAILY Qty: 60 2RF latanoprost 0.005 % Drops 1 drp OPHTHALMIC (EYE) BEDTIME hydrocodone-acetaminophen 5-325 mg tablet 1 tab PO Q4H PRN (Reason: Pain) levothyroxine 75 mcg tablet 75 mcg PO DAILY meclizine 25 mg Tablet 25 mg PO DAILY PRN (Reason: Motion Sickness) montelukast 10 mg tablet 10 mg PO BEDTIME oxybutynin chloride 5 mg tablet 5 mg PO TID Vimpat 100 mg tablet 100 mg PO BID ropinirole 1 mg tablet 2 mg PO BEDTIME Depakote 500 mg tablet,delayed release (DR/EC) 1,000 mg PO BID Discharge Orders: Discharge ED (Routine); Ordered 12/17/23 Ordered By: Louis Perales Referrals: Milagro Melendez APN [Primary Care Provider] - Discharge Diet: Usual diet Discharge Activity: Resume usual activity Patient Instructions: Opioid Safety, Pain Management Activity Restrictions/Additional Instructions: Thank you for choosing [facility] for your healthcare needs today. It is very important that you follow up as instructed or that you return to the Emergency Department should you have concerns or if your condition changes or worsens in any way. You are seen emergency room after fall x-ray of your hip ribs and low back did not show any acute fractures. Continue to take pain medications as previously prescribed and follow-up with your primary care doctor through the long-term. Coding Level of Care Code ED [employer]eder for Alex Fenton
[2023-12-17 08:34] VITALS: BP 138/81; PULSE 78; O2SAT 99
[2023-12-17 09:16] VITALS: BP 138/81; PULSE 78; RESP 16; TEMP 36.7; O2SAT 99
== END 2023-12-17 09:18 | disposition home or self-care (01) ==
PROVIDERS: Emergency Provider Family Medicine; PCP Nurse Practitioner Family
DX: M25.552 Pain in left hip (principal); Z79.82 Long term (current) use of aspirin; Z87.891 Personal history of nicotine dependence; G30.9 Alzheimer's disease, unspecified; F02.80 Dementia in other diseases classified elsewhere, unspecified severity, without behavioral disturbance, psychotic disturbance, mood disturbance, and anxiety; I25.10 Atherosclerotic heart disease of native coronary artery without angina pectoris; I25.2 Old myocardial infarction
CPT/HCPCS: 71101; 72100; 73502; 99284

== ENCOUNTER → 2024-01-28 14:18 | Outpatient (BNVA) | payer MEDICARE, OTHER, SELFPAY | PROVIDERS: PCP Nurse Practitioner Family; Visit Provider Specialist | DX: G30.9 Alzheimer's disease, unspecified (principal); F02.80 Dementia in other diseases classified elsewhere, unspecified severity, without behavioral disturbance, psychotic disturbance, mood disturbance, and anxiety; S06.0XAA Concussion with loss of consciousness status unknown, initial encounter; F32.A Depression, unspecified; G43.019 Migraine without aura, intractable, without status migrainosus; G72.9 Myopathy, unspecified; G40.802 Other epilepsy, not intractable, without status epilepticus; G25.81 Restless legs syndrome; X58.XXXA Exposure to other specified factors, initial encounter | CPT/HCPCS: 99214; 99215 ==